=== PATIENT | female | born 1960 | race Caucasian/White ===

== ENCOUNTER → 2020-12-01 13:03 | Outpatient (BNVA) | payer MEDICARE, MEDICAID, SELFPAY | PROVIDERS: PCP Nurse Practitioner Family; Referring Provider Family Medicine; Visit Provider Surgery | DX: Z01.818 Encounter for other preprocedural examination (principal); E66.01 Morbid (severe) obesity due to excess calories; K21.9 Gastro-esophageal reflux disease without esophagitis; K91.2 Postsurgical malabsorption, not elsewhere classified; R06.02 Shortness of breath; J45.909 Unspecified asthma, uncomplicated; F33.9 Major depressive disorder, recurrent, unspecified; F43.10 Post-traumatic stress disorder, unspecified; Z87.891 Personal history of nicotine dependence; F41.8 Other specified anxiety disorders; Z68.43 Body mass index [BMI] 50.0-59.9, adult; Z90.3 Acquired absence of stomach [part of]; Z79.899 Other long term (current) drug therapy | CPT/HCPCS: 99202 ==

== ENCOUNTER → 2020-12-15 08:06 | Outpatient (BNVA) | payer MEDICARE, MEDICAID, SELFPAY | PROVIDERS: PCP Nurse Practitioner Family; Visit Provider Physician Assistant | DX: E66.01 Morbid (severe) obesity due to excess calories (principal); Z68.43 Body mass index [BMI] 50.0-59.9, adult | CPT/HCPCS: Q3014 ==

== ENCOUNTER → 2021-03-02 09:02 | Outpatient (BNVA) | payer MEDICARE, MEDICAID, SELFPAY | PROVIDERS: PCP Nurse Practitioner Family; Referring Provider Family Medicine; Visit Provider Physician Assistant | DX: E66.01 Morbid (severe) obesity due to excess calories (principal); Z68.43 Body mass index [BMI] 50.0-59.9, adult | CPT/HCPCS: 99212 ==

== ENCOUNTER → 2021-03-14 08:08 | Outpatient (BNVA) | payer MEDICARE, MEDICAID, SELFPAY | PROVIDERS: PCP Nurse Practitioner Family; Visit Provider Dietitian, Registered | DX: E66.01 Morbid (severe) obesity due to excess calories (principal) | CPT/HCPCS: 97802 ==

== ENCOUNTER 2021-03-28 07:43 | Outpatient (REF) | payer MEDICARE, MEDICAID, SELFPAY ==
--- NOTE | ~2021-03-28 | XR_ITS ---
EXAMINATION: XR CHEST CLINICAL INFORMATION: Shortness of breath COMPARISON: None TECHNIQUE: 2 views of the chest were obtained. FINDINGS: The cardiac and mediastinal contours are normal. The lungs are clear. There is no pleural effusion or pneumothorax. There are degenerative changes of the spine. XR/XR chest 2V IMPRESSION: No evidence for acute disease in the chest.
--- NOTE | ~2021-03-28 | US_ITS ---
EXAMINATION: US COMPLETE ABDOMEN WITH LIVER ELASTOGRAPHY CLINICAL INFORMATION: Obesity COMPARISON: None. TECHNIQUE: Real-time imaging of the abdominal viscera. Noninvasive ultrasound liver fibrosis assessment is performed using Daja ElastPQ point quantification shear wave elastography (pSWE) with a C5-2 MHz transducer. Multiple elastography samples are obtained. FINDINGS: PANCREAS: The body of the pancreas is normal. The tail and head of the pancreas are not well visualized due to bowel gas. ABDOMINAL AORTA: No upper and mid abdominal aorta are normal in caliber. Distal abdominal aorta is not well visualized due to bowel gas. INFERIOR VENA CAVA: Not well visualized due to bowel gas. LIVER: Liver echotexture is increased. Liver is normal in contour. The liver is enlarged.. No focal lesion or intrahepatic biliary duct dilatation. The right lobe measures 19 cm in length. The left lobe measures 9 cm in length. Portal flow is normal/hepatopedal Shear wave liver elastography median stiffness is 1.4 m/s (reference: normal median stiffness is 1.3 m/s or less). IQR/median stiffness to assess sampling precision is 0.1 (reference: good quality data set is IQR/median stiffness of 0.15 or less). GALLBLADDER: Normal. The gallbladder is physiologically distended without evidence of stones, sludge, polyps, wall thickening or pericholecystic fluid. COMMON BILE DUCT: Normal in caliber measuring 0.3 cm in diameter. RIGHT KIDNEY: Normal. No hydronephrosis. No renal calculi or focal parenchymal lesions. The kidney measures 11 cm in maximum dimension. LEFT KIDNEY: Normal. No hydronephrosis. No renal calculi or focal parenchymal lesions. The kidney measures 11 cm in maximum dimension. SPLEEN: Normal. The spleen measures 7 cm in maximum dimension. FREE FLUID: None. US/US abdomen comp w elastography IMPRESSION: 1. Impression: Enlarged echogenic liver probably representing fatty infiltration. Limited visualization of the pancreas, aorta and IVC. 2. Liver elastography: Adequate liver sampling. In the absence of other known clinical signs, rules out compensated advanced chronic liver disease. REFERENCE: Society of Radiologists in Ultrasound Liver Stiffness Thresholds (2020): LIVER STIFFNESS THRESHOLDS: *Liver Stiffness equal or less than 1.3 m/s: High probability of being normal. *Liver Stiffness less than 1.7 m/s: In the absence of other known clinical signs, rules out compensated advanced chronic liver disease. *Liver Stiffness 1.7-2.1 m/s: Suggestive of compensated advanced chronic liver disease but need further test for confirmation. *Liver Stiffness over 2.1 m/s: Rules in compensated advanced chronic liver disease. *Liver Stiffness over 2.4 m/s: Suggestive of clinically significant portal hypertension. QUALITY OF DATA SET: *IQR/Median value equal or less than 0.15 implies a quality data set. *IQR/Median value over 0.15 implies a poor quality data set. SIGNIFICANT CHANGE FROM PRIOR EXAM: Significant change if liver stiffness measurement is 10% or greater from prior exam. OTHER CONSIDERATIONS: The stage of liver fibrosis may be overestimated in the setting of acute hepatitis, liver inflammation, elevated liver function tests, hepatic vascular congestion, obstructive cholestasis, non-fasting state, and infiltrative diseases such as amyloidosis and lymphoma. In some patients with NAFLD, the liver stiffness thresholds for compensated advanced chronic liver disease may be lower. In causes other than viral hepatitis and NAFLD, liver stiffness thresholds are not well established.
--- NOTE | ~2021-03-28 | FL_ITS ---
EXAMINATION: XR GI SERIES CLINICAL INFORMATION: Morbid/severe obesity due to excess calories. COMPARISON: None TECHNIQUE: Routine upper GI exam was performed in upright and lying position. FINDINGS: Following oral administration of thick barium and effervescent granules there is normal propagation of bolus from the oral cavity through the pharynx, esophagus into stomach without any obstruction narrowing. There is a tight posterior cricoesophageal splinter indenting the posterior esophageal wall. On placing patient supine and prone, the course, caliber and peristalsis of the stomach and esophagus is normal. There is no hiatal hernia or gastroesophageal reflux seen. The mucosal pattern of the stomach and the duodenum is normal. FLUOROSCOPY TIME: 2.0 minutes. DOSE AREA PRODUCT: 63.452 uGy-m2 (microgray-meter squared). FL/FL upper GI series IMPRESSION: Unremarkable upper GI air-contrast study.
--- NOTE | 2021-03-28 08:26 | ECG_ITS ---
Test Reason : sob Blood Pressure : / mmHG Vent. Rate : 064 BPM Atrial Rate : 064 BPM P-R Int : 182 ms QRS Dur : 108 ms QT Int : 444 ms P-R-T Axes : 032 086 048 degrees QTc Int : 458 ms Normal sinus rhythm Nonspecific ST and T wave abnormality Abnormal ECG No previous ECGs available Referred By: Spring Loza Electronically Signed By:LUIS SILVA
[2021-03-28 08:37] LABS: MANUAL DIFF FLAG NO
[2021-03-28 08:52] LABS: Basophils Percent Auto 0.8 % (0-2); Eosinophils Absolute Auto 0.2 X10*3/uL (0.0-0.4); Eosinophils Percent Auto 3.3 % (0-4); Hematocrit 42.1 % (37-47); Hemoglobin 13.9 g/dl (12.0-16.0); Imm Gran Abs Auto 0.01 X10*3/uL (0.00-0.03); Imm Gran Pct Auto 0.2 % (0.0-0.4); Lymphocytes Percent Auto 38.5 % (20-40); Mean Platelet Volume 9.8 fL (9.4-12.3); Monocytes Absolute Auto 0.4 X10*3/uL (0.1-1.2); Monocytes Percent Auto 6.9 % (2-11); Neutrophils Absolute Auto 2.6 X10*3/uL (2.0-8.3); Neutrophils Percent Auto 50.3 % (45-73); Platelet Count 303 X10*3/uL (160-400); Red Blood Count 4.48 X10*6/uL (4.20-5.50); Red Cell Distribution Width 13.8 % (11.0-16.0); White Blood Count 5.2 X10*3/uL (4.8-10.8)
[2021-03-28 09:21] LABS: Alanine Aminotransferase 24 U/L (0-31); Albumin Level 4.3 g/dL (3.5-5.0); Alkaline Phosphatase 76 U/L (39-117); Anion Gap 13 (12-20); Aspartate Amino Transferase 17 U/L (5-31); Bilirubin Total 0.3 mg/dL (0.0-1.0); Blood Urea Nitrogen 20 mg/dL (9-16); Calcium 9.3 mg/dL (8.4-10.2); Carbon Dioxide 27 mmol/L (22-29); Chloride 106 mmol/L (96-108); Cholesterol 178 mg/dL; Estimated Glomerular Filt Rate 45; Glucose Fasting 95 mg/dL (60-99); HDL Cholesterol 52 mg/dL; Iron 78 mcg/dL (30-160); LDL Cholesterol Calculated 110 mg/dl; Percent Iron Saturation 24 % (15-50); Potassium 4.5 mmol/L (3.3-5.1); Sodium 141 mmol/L (135-145); Total Iron Binding Capacity 320 mcg/dL (228-428); Total Protein 7.3 g/dL (6.5-8.0); Triglycerides 84 mg/dL; Unsaturated Iron Binding 242 ug/dL
[2021-03-28 09:43] LABS: Thyroid Stimulating Hormone 1.82 uIU/mL (0.32-4.0); Vitamin D 25-OH Total 52.9 ng/mL (>30)
[2021-03-28 10:15] LABS: Vitamin B12 534 pg/mL (200-900)
[2021-03-28 10:18] LABS: Estimated Average Glucose 100 mg/dL; Hemoglobin A1c % 5.1 %
[2021-03-30 12:31] LABS: Calcium (PTHI) 9.5 mg/dL (8.6-10.4); PTHI 43 pg/mL (14-64)
[2021-03-31 08:15] LABS: Zinc 88 mcg/dL (60-130)
[2021-04-02 10:36] LABS: Vitamin A 67 mcg/dL (38-98)
[2021-04-04 12:01] LABS: Vitamin B1 8 nmol/L (8-30)
== END 2021-03-28 07:44 | disposition home or self-care (01) ==
LOC: HO.US 07:43
PROVIDERS: Absent Provider Surgery; PCP Nurse Practitioner Family; Visit Provider Physician Assistant
DX: Z01.818 Encounter for other preprocedural examination (principal); E66.01 Morbid (severe) obesity due to excess calories; R06.02 Shortness of breath; K21.9 Gastro-esophageal reflux disease without esophagitis; K91.2 Postsurgical malabsorption, not elsewhere classified; Z90.3 Acquired absence of stomach [part of]
CPT/HCPCS: 36415; 71046; 74240; 76705; 76981; 80053; 80061; 82306; 82607; 83036; 83540; 83970; 84425; 84443; 84590; 84630; 85025; 86140; 93005

== ENCOUNTER → 2021-04-06 10:43 | Outpatient (BNVA) | payer MEDICARE, MEDICAID, SELFPAY | PROVIDERS: PCP Nurse Practitioner Family; Visit Provider Physician Assistant | DX: E66.01 Morbid (severe) obesity due to excess calories (principal); F50.81 Binge eating disorder; Z68.42 Body mass index [BMI] 45.0-49.9, adult | CPT/HCPCS: Q3014 ==

== ENCOUNTER → 2021-04-11 08:08 | Outpatient (BNVA) | payer MEDICARE, MEDICAID, SELFPAY | PROVIDERS: PCP Nurse Practitioner Family; Referring Provider Physician Assistant; Visit Provider Dietitian, Registered | DX: E66.01 Morbid (severe) obesity due to excess calories (principal) | CPT/HCPCS: 97803 ==

== ENCOUNTER → 2021-05-14 08:04 | Outpatient (BNVA) | payer MEDICARE, MEDICAID, SELFPAY | PROVIDERS: PCP Nurse Practitioner Family; Referring Provider Physician Assistant; Visit Provider Dietitian, Registered | DX: E66.9 Obesity, unspecified (principal); Z68.43 Body mass index [BMI] 50.0-59.9, adult | CPT/HCPCS: 97803 ==

== ENCOUNTER → 2021-05-18 08:09 | Outpatient (BNVA) | payer MEDICARE, MEDICAID, SELFPAY | PROVIDERS: PCP Nurse Practitioner Family; Visit Provider Physician Assistant | DX: Z13.89 Encounter for screening for other disorder (principal) | CPT/HCPCS: Q3014 ==

== ENCOUNTER 2023-09-11 10:55 | Outpatient (AMB) | payer MEDICARE, SELFPAY ==
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
== END 2023-09-11 11:50 | disposition home or self-care (01) ==
LOC: HO.HOP 10:55
PROVIDERS: PCP Family Medicine; Visit Provider Clinical Nurse Specialist Psychiatric/Mental Health
DX: F43.12 Post-traumatic stress disorder, chronic (principal); F50.81 Binge eating disorder
CPT/HCPCS: 99214

== ENCOUNTER → 2023-09-11 10:55 | Outpatient (BNVA) | payer MEDICARE, SELFPAY | PROVIDERS: PCP Family Medicine; Visit Provider Clinical Nurse Specialist Psychiatric/Mental Health | DX: F50.81 Binge eating disorder (principal); F43.10 Post-traumatic stress disorder, unspecified; F43.9 Reaction to severe stress, unspecified; F40.00 Agoraphobia, unspecified; Z79.899 Other long term (current) drug therapy | CPT/HCPCS: 99212 ==

== ENCOUNTER 2023-12-11 12:55 | Outpatient (AMB) | payer MEDICARE, SELFPAY ==
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
== END 2023-12-11 12:56 | disposition home or self-care (01) ==
LOC: HO.HOP 12:55
PROVIDERS: PCP Family Medicine; Visit Provider Clinical Nurse Specialist Psychiatric/Mental Health
DX: F33.0 Major depressive disorder, recurrent, mild (principal); F41.9 Anxiety disorder, unspecified; F43.20 Adjustment disorder, unspecified; F50.81 Binge eating disorder
CPT/HCPCS: 99214

== ENCOUNTER → 2023-12-11 12:55 | Outpatient (BNVA) | payer MEDICARE, SELFPAY | PROVIDERS: PCP Family Medicine; Visit Provider Clinical Nurse Specialist Psychiatric/Mental Health | DX: F33.0 Major depressive disorder, recurrent, mild (principal); F41.9 Anxiety disorder, unspecified; F43.20 Adjustment disorder, unspecified; F50.81 Binge eating disorder | CPT/HCPCS: 99212 ==

== ENCOUNTER 2024-01-08 11:57 | Outpatient (AMB) | payer MEDICARE, SELFPAY ==
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
== END 2024-01-08 11:58 | disposition home or self-care (01) ==
LOC: HO.HOP 11:57
PROVIDERS: PCP Family Medicine; Visit Provider Clinical Nurse Specialist Psychiatric/Mental Health
DX: F33.0 Major depressive disorder, recurrent, mild (principal); F43.20 Adjustment disorder, unspecified; F41.9 Anxiety disorder, unspecified
CPT/HCPCS: 99214

== ENCOUNTER → 2024-01-08 11:57 | Outpatient (BNVA) | payer MEDICARE, SELFPAY | PROVIDERS: PCP Family Medicine; Visit Provider Clinical Nurse Specialist Psychiatric/Mental Health | DX: F33.0 Major depressive disorder, recurrent, mild (principal); F41.9 Anxiety disorder, unspecified; F43.20 Adjustment disorder, unspecified; F50.81 Binge eating disorder ==

== ENCOUNTER 2024-02-09 14:25 | Outpatient (AMB) | payer MEDICARE, SELFPAY ==
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
== END 2024-02-09 14:27 | disposition home or self-care (01) ==
LOC: HO.HOP 14:26
PROVIDERS: PCP Family Medicine; Visit Provider Clinical Nurse Specialist Psychiatric/Mental Health
DX: F43.20 Adjustment disorder, unspecified (principal); Z63.4 Disappearance and death of family member; F33.1 Major depressive disorder, recurrent, moderate
CPT/HCPCS: 99214

== ENCOUNTER → 2024-02-09 14:25 | Outpatient (BNVA) | payer MEDICARE, SELFPAY | PROVIDERS: PCP Family Medicine; Visit Provider Clinical Nurse Specialist Psychiatric/Mental Health | DX: F41.9 Anxiety disorder, unspecified (principal); F33.1 Major depressive disorder, recurrent, moderate; F43.20 Adjustment disorder, unspecified; Z63.4 Disappearance and death of family member | CPT/HCPCS: 99212 ==

== ENCOUNTER 2024-03-15 13:51 | Outpatient (AMB) | payer MEDICARE, SELFPAY ==
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
== END 2024-03-15 13:52 | disposition home or self-care (01) ==
LOC: HO.HOP 13:51
PROVIDERS: PCP Family Medicine; Visit Provider Clinical Nurse Specialist Psychiatric/Mental Health
DX: F33.1 Major depressive disorder, recurrent, moderate (principal); F43.11 Post-traumatic stress disorder, acute; F43.20 Adjustment disorder, unspecified; Z63.4 Disappearance and death of family member
CPT/HCPCS: 99214

== ENCOUNTER → 2024-03-15 13:51 | Outpatient (BNVA) | payer MEDICARE, SELFPAY | PROVIDERS: PCP Family Medicine; Visit Provider Clinical Nurse Specialist Psychiatric/Mental Health | DX: F33.0 Major depressive disorder, recurrent, mild (principal); F41.9 Anxiety disorder, unspecified; F43.20 Adjustment disorder, unspecified; F50.81 Binge eating disorder; Z63.4 Disappearance and death of family member; F33.1 Major depressive disorder, recurrent, moderate; F43.10 Post-traumatic stress disorder, unspecified ==

== ENCOUNTER 2024-04-16 12:51 | Outpatient (AMB) | payer MEDICARE, SELFPAY ==
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
== END 2024-04-16 12:51 | disposition home or self-care (01) ==
LOC: HO.HOP 12:51
PROVIDERS: PCP Family Medicine; Visit Provider Clinical Nurse Specialist Psychiatric/Mental Health
DX: F43.10 Post-traumatic stress disorder, unspecified (principal); F33.1 Major depressive disorder, recurrent, moderate; F43.20 Adjustment disorder, unspecified; Z63.4 Disappearance and death of family member
CPT/HCPCS: 99214

== ENCOUNTER → 2024-04-16 12:51 | Outpatient (BNVA) | payer MEDICARE, SELFPAY | PROVIDERS: PCP Family Medicine; Visit Provider Clinical Nurse Specialist Psychiatric/Mental Health | DX: F33.1 Major depressive disorder, recurrent, moderate (principal); F43.21 Adjustment disorder with depressed mood; F43.10 Post-traumatic stress disorder, unspecified; Z63.4 Disappearance and death of family member | CPT/HCPCS: 99212 ==

== ENCOUNTER 2024-05-14 10:03 | Outpatient (AMB) | payer MEDICARE, SELFPAY ==
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
== END 2024-05-14 10:41 | disposition home or self-care (01) ==
LOC: HO.HOP 10:03
PROVIDERS: PCP Family Medicine; Visit Provider Clinical Nurse Specialist Psychiatric/Mental Health
DX: F43.10 Post-traumatic stress disorder, unspecified (principal); F33.1 Major depressive disorder, recurrent, moderate; F43.20 Adjustment disorder, unspecified; Z63.4 Disappearance and death of family member
CPT/HCPCS: 90833; 99214

== ENCOUNTER → 2024-05-14 10:03 | Outpatient (BNVA) | payer MEDICARE, SELFPAY | PROVIDERS: PCP Family Medicine; Visit Provider Clinical Nurse Specialist Psychiatric/Mental Health | DX: F43.10 Post-traumatic stress disorder, unspecified (principal); F33.1 Major depressive disorder, recurrent, moderate; F43.20 Adjustment disorder, unspecified; Z63.4 Disappearance and death of family member; Z62.810 Personal history of physical and sexual abuse in childhood; Z71.89 Other specified counseling | CPT/HCPCS: 99212 ==

== ENCOUNTER 2024-09-03 11:16 | Outpatient (AMB) | payer MEDICARE, SELFPAY ==
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
--- OUTSIDE RECORDS SUMMARY | 2024-09-03 13:05 | XMS_ITS | Encounter Summary ---
Author Organization [employer] Address [address] [place] [address] Care Team Providers Care Saw Operator Name Role Phone Megha Arroyo Unavailable Jairo Patel DDS Unavailable [phone] Encounter Details Date Type Department Care Team (Late Contact Info) Description 04/16/2023 Orders Only [facility] [address] [place] [address] [phone] Ryan [place] DDS [address] [place] [address] [id number] Social History Tobacco Use Types Packs/Day Years Used Date Smoking Tobacco: Never Smokeless Tobacco: Never Alcohol Use Standard Drinks/Week Comments Not Currently 0 (1 standard drink = 0.6 oz pur e alcohol) Comments Unknown Sex and Gender Information Value Date Recorded Sex Assigned at Female 12/25/2022 9:08 AM EDT Legal Sex Female 8:39 PM EST Gender Identity Female 05/10/2022 8:39 PM EST Sexual Orientation Straight 05/10/2022 8: 39 PM EST documented as of this encounter Plan of Treatment Upcoming Encounters Date Type Department Care Team (Late st Contact Info) Description 10/28/2024 9:45 AM EDT Office Visit [facility] [address] [place] [address] [phone] Darlene Zabala documented as of this encounter Visit Diagnoses Not on filedocumented in this encounter Care Teams Saw Operator Relationship Specialty Start Date End Date Megha Arroyo [address] [place] [address] Dental Merchandise Collector 10/21/23 Jairo Patel DDS [address] [place] [address] Dentist 10/21/23 documented as of this encounter
--- OUTSIDE RECORDS SUMMARY | 2024-09-03 13:05 | XMS_ITS | Data Portability ---
Author Organization Formerly [facility], [employer] Address [address] [place] [id number] Assessment Encounter Date Assessment Date Assessment LastModified by Organization Details LastModified Time 08/14/2023 08/14/2023 During this encounter, 2 of the 3 elements of MDM addressed: (1)Number and Complexity of problems: 2 or more stable chronic illnesses (2)Amount/Complex ity of data (need 1 out of 3 categories): Category 2: Independent interpretation of tests. (3)Moderate Risk of morbidity from additional diagnostic testing or treatment (one needed): . [email or web address] Not available 08/14/2023 21:22:00 10/17/2023 10/17/2023 The patient was advised to continue a healthy diet and exercise regularly. Preventative care discussed in detail. Eight minutes spent on each counselling about depression, alcohol, obesity, and cardiovascular health. Further preventative care counselling discussed as documented below. [email or web address] Not available 10/29/2023 13:18:02 02/24/2024 02/24/2024 Appointments - Follow-up appointment in 6 to 8 weeks, labs prior The following time was spent on todays E/M encounter, including preparing for the visit, reviewing results, seeing the patient, and documentation on the date of service of the encounter: 40 mins Not available 02/26/2024 09:12:22 05/10/2024 05/10/2024 The following time was spent on todays E/M encounter, including preparing for the visit, reviewing results, seeing the patient, and documentation on the date of service of the encounter: 30 [id number] 15-29 minutes [id number] 30-44 minutes [id number] 45-59 minutes [id number] 60-74 minutes [id number] 10-19 minutes [id number] 20-29 minutes [id number] 30-39 minutes [id number] 40-54 minutes [email or web address] Not available 05/10/2024 16:16:12 07/09/2024 07/09/2024 Assessment - Chronic back pain likely due to muscle strain, although considered ddx of degenerative disc disease, disc bulge/herniation, spinal stenosis. - Binge eating disorder - History of cardiac artery dissection, with ongoing monitoring of cholesterol levels. Plan - Initiate physical therapy to address back pain. If there is no noticeable improvement after six weeks, imaging studies will be considered to evaluate for potential degenerative changes or other underlying issues. A referral for physical therapy will be sent to facilitate the initiation of treatment for back pain. - Emphasize weight management strategies to reduce stress on the joints and spine, acknowledging the challenges posed by binge eating disorder. - Continue to monitor cholesterol levels closely, with a focus on dietary modifications to further improve lipid profile. The patient is encouraged to maintain current efforts and dietary changes. - A referral will be made to a colorectal specialist to assess and manage hemorrhoids Appointments - Physical therapy referral to be scheduled. - Colorectal referral to be scheduled. - Annual exam in October 2024 The following time was spent on todays E/M encounter, including preparing for the visit, reviewing results, seeing the patient, and documentation on the date of service of the encounter: 45 mins [email or web address] Not available 07/12/2024 06:04:41 Plan of Treatment Reminders Order Date Submit Date Provider Last Modified By Organization Details Last Modified Time Details Appointments None recorded . Lab lipid panel, serum 2024 025 [facility], [address] [facility], [place], [address], 5 06:06:14 TSH, ultra-se nsitive, serum 2024 025 ALEISHA [facility], [address], [place], [address], 5 06:06:14 CBC 2024 025 ALEISHA [facility], [address], [place], [address], 5 06:06:14 HbA1c (hemoglo bin A1c), blood 2024 025 ALEISHA [facility], [address], [place], [address], 5 06:06:13 vaginal pathogen s panel, PRITI+prob e, vaginal fluid 2023 024 ALEISHA [facility], [address], [place], [address], 4 14:06:53 urinalys is, dipstick 2023 024 [email or web address] Main Office, [address] [place] [address], [address], [place], [address], 4 16:18:50 CMP, serum or plasma 2023 024 ALEISHA [facility], [address], [place], [address], 4 06:08:10 lipid panel, serum 2023 024 ALEISHA [facility], [address], [place], [address], 4 06:08:11 lipid panel, serum 2023 024 ALEISHA [facility] (Centralized Electronic Ordering - All Locations), Patient Can Go To The Location Of Their Choice, [id number] 4 03:03:50 Referral colon & rectal surgeon referral 2024 025 [email or web address] [facility] Colorectal Surgery Scheduling Dept, [facility] [address] [facility], [place], [address], 5 10:25:32 [email or web address] gist referral 2023 024 [email or web address] Not available 4 09:02:25 Procedures None recorded . Surgeries None recorded . Imaging None recorded . Medication Orders Senna Plus 8.6 mg-50 mg capsule 2023 024 [facility], [address] [place], [address], 4 09:01:34 omeprazo le 40 mg capsule, delayed release 2023 024 [facility], [address] [place], [address], 4 13:17:59 cycloben zaprine 10 mg tablet 2023 024 [facility], [address] [place], [address], 4 21:26:53 gabapent in 300 mg capsule 2023 024 [facility], [address] [place], [address], 4 10:59:57 Patient TargetsNo targets recorded. Patient Instructions Encounter Date Encounter Id Patient Instructions Last Modified By Organization Details Last Modified Time 02/24/2024 [id number] back pain: care instructions Not available 02/24/2024 10:49:58 low back pain: exercises [email or web address] Not available 02/24/2024 10:49:58 back care and preventing injuries: care instructions [email or web address] Not available 02/24/2024 10:49:58 Reason for Referral Rehabilitation Aide/Scheduler Referral for Dy suria Referring Physician: Amelia Gramajo, Internal Medicine, Encounter Date: 05/10/2024 Colon & Rectal Surgeon Refer ral for External hemorrhoids Referring Physician: Sonali Duenas, Family Medicine, Encounter Date: 07/09/2024 Results Created Date Observation Date Name Description Value Unit Range Abnormal Flag Note LastModifiedBy Organization Detail LastModifiedTime 08/12/1908/12/2023 COMPL ETE BLOOD COUNT WBC 5.8 K/mm3 (4.0-1 1.0) Not Available [facility] (Centralized [facility] Ordering - All Locations) Patient Can Go To The Location Of Their Choice, [id number] 08/12/2023 14:21:44 08/12/1908/12/2023 COMPL ETE BLOOD COUNT RBC 4.37 M/mm3 (4.20- 5.40) Not Available [facility] (Centralized [facility] Ordering - All Locations) Patient Can Go To The Location Of Their Choice, 08/12/2023 14:21:44 08/12/19 24 08/12/2023 COMPL ETE BLOOD COUNT HGB 13.5 gm/dL (11.7- 15.5) Not Available [facility] (Centralized Electronic Ordering - All Locations) Patient Can Go To The Location Of Their Choice, 08/12/2023 14:21:44 08/12/19 24 08/12/2023 COMPL ETE BLOOD COUNT HCT 41.5 % (35.7- 45.8) Not Available [facility] (Central[facility] Ordering - All Locations) Patient Can Go To The Location Of Their Choice, 08/12/2023 14:21:44 08/12/1908/12/2023 COMPL ETE BLOOD COUNT MCV 95.0 fL (80.0- 100.0) Not Available [facility] (Centralized Electronic Ordering - All Locations) Patient Can Go To The Location Of Their Choice, 08/12/2023 14:21:44 08/12/19 24 08/12/2023 COMPL ETE BLOOD COUNT MCH 30.9 pg (27.0- 34.0) Not Available [facility] ([facility] Ordering - All Locations) Patient Can Go To The Location Of Their Choice, 08/12/2023 14:21:44 08/12/1908/12/2023 COMPL ETE BLOOD COUNT MCHC 32.5 g/dL (33.0- 37.0) low Not Available [facility] ([facility] Ordering - All Locations) Patient Can Go To The Location Of Their Choice, 08/12/2023 14:21:44 08/12/1908/12/2023 COMPL ETE BLOOD COUNT plt 327 K/mm3 (150-4 60) Not Available [facility] ([facility] Ordering - All Locations) Patient Can Go To The Location Of Their Choice, 08/12/2023 14:21:44 08/12/19 24 08/12/2023 COMPL ETE BLOOD COUNT RDW-SD 46.9 fL (<47.0 ) Not Available [facility] ([facility] Ordering - All Locations) Patient Can Go To The Location Of Their Choice, 08/12/2023 14:21:44 08/12/19 24 08/12/2023 COMPL ETE BLOOD COUNT MPV 10.0 fL (9.4-1 2.4) Not Available [facility] ([facility] Ordering - All Locations) Patient Can Go To The Location Of Their Choice, 08/12/2023 14:21:44 08/12/19 24 08/12/2023 COMPL ETE BLOOD COUNT automated NRBC 0.0 #/100 _WBC' s Not Available [facility] (Central[facility] Ordering - All Locations) Patient Can Go To The Location Of Their Choice, 08/12/2023 14:21:44 08/12/19 24 08/12/2023 COMPL ETE BLOOD COUNT abs. NRBC 0.0 K/mm3 Not Available [facility] ([facility] Ordering - All Locations) Patient Can Go To The Location Of Their Choice, 08/12/2023 14:21:44 08/12/1908/12/2023 HEMOG LOBIN A1C hemoglobin A1C 5.4 % (4.0-5 .6) MONIT ORING : In known diabe tic patie nts, hemog lobin A1c targe ts shoul d be discu ssed with healt h care provi gissel. DIAGN OSTIC USE: The Ameri can Diabe pham Assoc iatio n (ADA) and the World Healt h Organ izati on (WHO) recom mend the use of HbA1c to diagn ose diabe pham using a thres hold of 6.5%. Patie nts who have an HbA1c betwe en 5.7% and 6.4% are consi dered at incre ased risk for devel oping diabe pham in the futur e. CAUTI ON: False ly low HbA1c resul ts may be obser shahrzad in patie nts with hemol ytic anemi a, homoz ygous forms of abnor mal hemog lobin (e.g. SS, CC, SC), pregn leonor, recen t blood loss or hemog lobin F great er than 7%. Fruct osami ne may be used as an alter fernie test in these cases . REFER ENCE: ADA: Stand ards of Medic al Care in Diabe pham 2019, The Journ al of Clini seth and Appli ed Resea rc and Educa tion Volum e 43, Suppl ement 1 Not Available [facility] ([facility] Ordering - All Locations) Patient Can Go To The Location Of Their Choice, 08/12/2023 14:47:50 08/12/19 24 08/12/2023 COMPR EHENS EDDIE METAB OLIC PANL glucose 92 mg/dL (70-99 ) Not Available [facility] ([facility] Order[facility] - All Locations) Patient Can Go To The Location Of Their Choice, 08/12/2023 15:01:25 08/12/19 24 08/12/2023 COMPR EHENS EDDIE METAB OLIC PANL BUN 14 mg/dL (8-23) Not Available [facility] ([facility] Order[facility] - All Locations) Patient Can Go To The Location Of Their Choice, 08/12/2023 15:01:25 08/12/1908/12/2023 COMPR EHENS EDDIE METAB OLIC PANL creatinine 1.3 mg/dL (0.5-1 .0) high Not Available [facility] ([facility] Order[facility] - All Locations) Patient Can Go To The Location Of Their Choice, 08/12/2023 15:01:25 08/12/1908/12/2023 COMPR EHENS EDDIE METAB OLIC PANL sodium 140 mmol/ L (133-1 45) Not Available [facility] ([facility] Order[facility] - All Locations) Patient Can Go To The Location Of Their Choice, 08/12/2023 15:01:25 08/12/1908/12/2023 COMPR EHENS EDDIE METAB OLIC PANL potassium 4.7 mmol/ L (3.6-5 .2) Not Available [facility] ([facility] Order[facility] - All Locations) Patient Can Go To The Location Of Their Choice, 08/12/2023 15:01:25 08/12/19 24 08/12/2023 COMPR EHENS EDDIE METAB OLIC PANL chloride 102 mmol/ L (98-10 7) Not Available [facility] ([facility] Order[facility] - All Locations) Patient Can Go To The Location Of Their Choice, 08/12/2023 15:01:25 08/12/19 24 08/12/2023 COMPR EHENS EDDIE METAB OLIC PANL bicarbonate 26 mmol/ L (22-29 ) Not Available [facility] ([facility] Order[facility] - All Locations) Patient Can Go To The Location Of Their Choice, 08/12/2023 15:01:25 08/12/19 24 08/12/2023 COMPR EHENS EDDIE METAB OLIC PANL anion gap 12 (4-17) Not Available [facility] ([facility] Ordering - All Locations) Patient Can Go To The Location Of Their Choice, 08/12/2023 15:01:25 08/12/19 24 08/12/2023 COMPR EHENS EDDIE METAB OLIC PANL albumin 4.2 gm/dL (3.4-4 .8) Not Available [facility] ([facility] Ordering - All Locations) Patient Can Go To The Location Of Their Choice, 08/12/2023 15:01:08/12/1908/12/2023 COMPR EHENS EDDIE METAB OLIC PANL calcium 9.3 mg/dL (8.6-1 0.5) Not Available [facility] ([facility] Ordering - All Locations) Patient Can Go To The Location Of Their Choice, 08/12/2023 15:01:08/12/1908/12/2023 COMPR EHENS EDDIE METAB OLIC PANL bilirubin,to dawson 0.4 mg/dL (0-1.2 ) Not Available [facility] ([facility] Ordering - All Locations) Patient Can Go To The Location Of Their Choice, 08/12/2023 15:01:08/12/1908/12/2023 COMPR EHENS EDDIE METAB OLIC PANL total protein 6.9 gm/dL (6.2-8 .2) Not Available [facility] ([facility] Ordering - All Locations) Patient Can Go To The Location Of Their Choice, 08/12/2023 15:01:08/12/19 24 08/12/2023 COMPR EHENS EDDIE METAB OLIC PANL Ag ratio 1.6 Not Available [facility] ([facility] Order[facility] - All Locations) Patient Can Go To The Location Of Their Choice, 08/12/2023 15:01:08/12/1908/12/2023 COMPR EHENS EDDIE METAB OLIC PANL AST 18 U/L (0-32) Not Available [facility] ([facility] Ordering - All Locations) Patient Can Go To The Location Of Their Choice, 08/12/2023 15:01:25 08/12/19 24 08/12/2023 COMPR EHENS EDDIE METAB OLIC PANL alk phos 76 U/L (35-10 4) Not Available [facility] ([facility] Ordering - All Locations) Patient Can Go To The Location Of Their Choice, 08/12/2023 15:01:25 08/12/19 24 08/12/2023 COMPR EHENS EDDIE METAB OLIC PANL ALT 16 U/L (0-33) Not Available [facility] ([facility] Ordering - All Locations) Patient Can Go To The Location Of Their Choice, 08/12/2023 15:01:25 08/12/19 24 08/12/2023 COMPR EHENS EDDIE METAB OLIC PANL estimated GFR creatinine 48 mL/mi n/1.7 3_M2 Creat inine based estim ated glome rular filtr ation (eGFR ) in adult s is calcu lated using the Natio nal Kidne y Found ation recom juan d 2020 CKD-E PI equat ion. Estim ates GFR from serum creat inine , age and sex. Not Available [facility] ([facility] Ordering - All Locations) Patient Can Go To The Location Of Their Choice, 08/12/2023 15:01:25 08/12/1908/12/2023 LIPID PANEL cholesterol, total 217 mg/dL (<200) high Not Available [facility] ([facility] - [facility] Locations) Patient Can Go To The Location Of Their Choice, 08/12/2023 15:01:26 08/12/19 24 08/12/2023 LIPID PANEL triglyceride 156 mg/dL (<150) high Not Available [facility] - [facility] Locations) Patient Can Go To The Location Of Their Choice, 08/12/2023 15:01:26 08/12/19 24 08/12/2023 LIPID PANEL HDL chol 53 mg/dL (>39) Not Available [facility] ([facility] Order[facility] - All Locations) Patient Can Go To The Location Of Their Choice, [id number] 08/12/2023 15:01:26 08/12/19 24 08/12/2023 LIPID PANEL LDL cholesterol, calculated 133 mg/dL (0-130 ) high Not Available [facility] ([facility] Order[facility] - All Locations) Patient Can Go To The Location Of Their Choice, [id number] 08/12/2023 15:01:26 08/12/19 24 08/12/2023 LIPID PANEL non HDL cholesterol (calc) 164 mg/dL (<160) high Not Available [facility] ([facility] - All Locations) Patient Can Go To The Location Of Their Choice, [id number] 08/12/2023 15:01:26 05/10/20 24 05/11/2024 NUSWA B VAGIN ITIS PLUS (VG+) atopobium vaginae Low - 0 score Not Available [facility] ([facility]) [address] [facility], [place], [address], 05/12/2024 14:06:53 05/10/20 24 05/11/2024 NUSWA B VAGIN ITIS PLUS (VG+) bvab 2 Low - 0 score Not Available [facility] ([facility]) [address] [facility], [place], [address], 05/12/2024 14:06:53 05/10/20 24 05/11/2024 NUA B VAGIN ITIS PLUS (VG+) megasphaera 1 Low - 0 score Calcu late total score by lois chavez the 3 indiv idual bacte rial vagin osis (BV) marke r score s toget her. Total score is inter prete d as follo ws: Total score 0-1: Indic ates the absen ce of BV. Total score 2: Indet ermin ate for BV. Addit ional clini seth data shoul d be evalu ated to estab evi a diagn osis. Total score 3-6: Indic ates the prese nce of BV. Not Available [facility] ([facility]) [address] [facility], [place], [address], 05/12/2024 14:06:53 05/10/20 24 05/11/2024 NUSWA B VAGIN ITIS PLUS (VG+) shannan albicans, PRITI Negati ve negati ve Not Available [facility] ([facility]) [address] [facility], [place], [address], 05/12/2024 14:06:53 05/10/20 24 05/11/2024 NUSWA B VAGIN ITIS PLUS (VG+) shannan glabrata, PRITI Negati ve negati ve Not Available [facility] ([facility]) [address] [facility], [place], [address], 05/12/2024 14:06:53 05/10/2005/12/2024 NUA B VAGIN ITIS PLUS (VG+) trich vag by PRITI Negati ve negati ve Not Available [facility] ([facility]) [address] [facility], [place], [address], 05/12/2024 14:06:53 05/10/20 24 05/12/2024 NUA B VAGIN ITIS PLUS (VG+) chlamydia trachomatis, PRITI Negati ve negati ve Not Available [facility] ([facility]) [address] [facility], [place], [address], 05/12/2024 14:06:53 05/10/20 24 05/12/2024 NUA B VAGIN ITIS PLUS (VG+) neisseria gonorrhoeae, PRITI Negati ve negati ve Not Available [facility] ([facility]) [address] [facility], [place], [address], 05/12/2024 14:06:53 05/10/20 24 05/10/2024 urina lysis , dipst ick Leukocytes negati ve Not Available Main Office [address] [place] [address], [address], 05/10/2024 15:56:33 05/10/20 24 05/10/2024 urina lysis , dipst ick Nitrite negati ve Not Available Main Office [address] [facility] [address], [place], [address], 05/10/2024 15:56:33 05/10/20 24 05/10/2024 urina lysis , dipst ick Urobilinogen negati ve Not Available Main Office [address] [facility] [address], [place], [address], 05/10/2024 15:56:33 05/10/20 24 05/10/2024 urina lysis , dipst ick Protein negati ve Not Available Main Office [address] [facility] [address], [place], , 05/10/2024 15:56:33 05/10/20 24 05/10/2024 urina lysis , dipst ick pH 5.5 Not Available Main Offic e [address] [facility] [address], [place], [address], 05/10/2024 15:56:33 05/10/20 24 05/10/2024 urina lysis , dipst ick Blood 3+ Not Available Main Offic e [address] [facility] [address], [place], [address], 05/10/2024 15:56:33 05/10/20 24 05/10/2024 urina lysis , dipst ick Specific [place] 1.020 Not Available Main O ffice [address] [facility] [address], [place], [address], 05/10/2024 15:56:33 05/10/20 24 05/10/2024 urina lysis , dipst ick Ketone negati ve Not Available Main Office [address] [facility] [address], [place], [address], 05/10/2024 15:56:33 05/10/20 24 05/10/2024 urina lysis , dipst ick Bilirubin negati ve Not Available Main Office [address] [facility] [address], [place], [address], 05/10/2024 15:56:33 05/10/20 24 05/10/2024 urina lysis , dipst ick Glucose negati ve Not Available Main Office [address] [facility] [address], [place], [address], 05/10/2024 15:56:33 06/16/20 24 06/16/2024 COMP. METAB OLIC PANEL (14) glucose 92 mg/dL 70-99 normal Not Available [facility] ([facility]) [address] [place], [address], 06/17/2024 06:08:10 06/16/20 24 06/16/2024 COMP. METAB OLIC PANEL (14) BUN 22 mg/dL 8-27 normal Not Available [facility] ([facility]) [address] [place], [address], 06/17/2024 06:08:10 06/16/20 24 06/16/2024 COMP. METAB OLIC PANEL (14) creatinine 1.24 mg/dL 0.57-1 .00 above high normal Not Available [facility] ([facility]) [address] [place], [address], 06/17/2024 06:08:10 06/16/20 24 06/16/2024 COMP. METAB OLIC PANEL (14) eGFR 49 mL/mi n/1.7 3 >59 below low normal Not Available [facility] ([facility]) [address] [place], [address], 06/17/2024 06:08:10 06/16/20 24 06/16/2024 COMP. METAB OLIC PANEL (14) BUN/creatini ne ratio 18 12-28 normal Not Available [facility] ([facility]) [address] [place], [address], 06/17/2024 06:08:10 06/16/20 24 06/16/2024 COMP. METAB OLIC PANEL (14) sodium 142 mmol/ L 134-14 4 normal Not Available [facility] ([facility]) [address] [place], [address], 06/17/2024 06:08:10 06/16/20 24 06/16/2024 COMP. METAB OLIC PANEL (14) potassium 4.6 mmol/ L 3.5-5. 2 normal Not Available [facility] ([facility]) [address] [place], [address], 06/17/2024 06:08:10 06/16/20 24 06/16/2024 COMP. METAB OLIC PANEL (14) chloride 104 mmol/ L 96-106 normal Not Available [facility] ([facility]) [address] [place], [address], 06/17/2024 06:08:10 06/16/20 24 06/16/2024 COMP. METAB OLIC PANEL (14) carbon dioxide, total 25 mmol/ L 20-29 normal Not Available [facility] ([facility]) [address] [place], [address], 06/17/2024 06:08:10 06/16/20 24 06/16/2024 COMP. METAB OLIC PANEL (14) calcium 9.2 mg/dL 8.7-10 .3 normal Not Available [facility] ([facility]) [address] [place], [address], 06/17/2024 06:08:10 06/16/20 24 06/16/2024 COMP. METAB OLIC PANEL (14) protein, total 6.8 g/dL 6.0-8. 5 normal Not Available [facility] ([facility]) [address] [place], [address], 06/17/2024 06:08:10 06/16/20 24 06/16/2024 COMP. METAB OLIC PANEL (14) albumin 4.0 g/dL 3.9-4. 9 normal Not Available [facility] ([facility]) [address] [facility] [place], [address], 06/17/2024 06:08:10 06/16/20 24 06/16/2024 COMP. METAB OLIC PANEL (14) globulin, total 2.8 g/dL 1.5-4. 5 Not Available [facility] ([facility]) [address] [facility] [place], [address], 06/17/2024 06:08:10 06/16/20 24 06/16/2024 COMP. METAB OLIC PANEL (14) bilirubin, total 0.3 mg/dL 0.0-1. 2 normal Not Available [facility] ([facility]) [address] [facility] [place], [address], 06/17/2024 06:08:10 06/16/20 24 06/16/2024 COMP. METAB OLIC PANEL (14) alkaline phosphatase 76 IU/L 44-121 normal Not Available [facility] ([facility]) [address] [facility] [place], [address], 06/17/2024 06:08:10 06/16/20 24 06/16/2024 COMP. METAB OLIC PANEL (14) AST (SGOT) 16 IU/L 0-40 normal Not Available [facility] ([facility]) [address] [facility] [place] [place], [address], 06/17/2024 06:08:10 06/16/20 24 06/16/2024 COMP. METAB OLIC PANEL (14) ALT (SGPT) 17 IU/L 0-32 normal Not Available [facility] ([facility]) [address] [facility] [place], [address], 06/17/2024 06:08:10 06/16/20 24 06/17/2024 LIPID PANEL cholesterol, total 203 mg/dL 100-19 9 above high normal Not Available [facility] ([facility]) [address] [facility] [place], [address], 06/17/2024 06:08:11 06/16/20 24 06/17/2024 LIPID PANEL triglyceride s 132 mg/dL 0-149 normal Not Available [facility] ([facility]) [address] [facility], [place], [address], 06/17/2024 06:08:11 06/16/20 24 06/17/2024 LIPID PANEL HDL cholesterol 51 mg/dL >39 normal Not Available [facility] ([facility]) [address] [facility], [place], [address], 06/17/2024 06:08:11 06/16/20 24 06/17/2024 LIPID PANEL VLDL cholesterol seth 24 mg/dL 5-40 Not Available [facility] ([facility]) [address] [facility], [place], [address], 06/17/2024 06:08:11 06/16/20 24 06/17/2024 LIPID PANEL LDL chol calc ([facility]) 128 mg/dL 0-99 above high normal Not Available [facility] ([facility]) [address] [place], [address], 06/17/2024 06:08:11 06/16/20 24 06/17/2024 LIPID PANEL LDL calc comment: FURNITURE DETAILER Not Available [facility] ([facility]) [address] [place], [address], 06/17/2024 06:08:11 07/01/19 25 07/01/2024 MAMMO , scree gio, digit al, bilat eral No observ ation record ed. [email or web address] Not Available 2024 10:12:14 Result Notes None recorded. Problems Name Problem SNOMED Code Status Onset Date Resolution Date Notes Provider Name and Address Organization Details Recorded Time Anxiety 28088956 Active Shandra Jean baker, [place] [facility] 13:08:46 Atypical chest pain [id number] Active Shandra Jean null, [place] [facility] 13:09:02 Binge eating disorder [id number] Active Shandra Jean null, [place] [facility] 13:09:11 Cyst of breast 878965955 Active Shandra [place] null, [place] [facility] 13:09:22 Renal impairment 661065336 Active Shandra [place], [place] [facility] 3 13:09:36 Dissection of coronary artery 295277445 Active Shandra [place], [place] [facility] 3 13:09:45 Depressive disorder 77768664 Active Shandra [place], [place] [facility] 3 13:09:53 Dyspnea at rest 225183210 Active Shandra [place], [place] [facility] 3 13:10:04 Gastroesop hageal reflux disease 234543704 Active Shandra [place] null, [place] [facility] 3 13:10:27 Impaired fasting glycemia 615797476 Active Shandra [place] null, [place] [facility] 3 13:10:32 Insomnia 253455866 Active Shandra Jean null, [place] [facility] 3 13:10:41 Lateral epicondyli tis 947367762 Active Shandra Jean null, [place] [facility] 3 13:10:50 Medial epicondyli tis 02330919 Active Shandra [place] null, [place] [facility] 3 13:10:58 Myocardial infarction 81007896 Active NSTEMI (non-ST elevated myocardial infarction ) Shandra [place] null, [place] - [facility] 3 13:11:32 Obesity 381055933 Active Shandra [place] null, [place] [facility] 3 13:11:45 Posttrauma tic stress disorder 06169849 Active Shandra [place] null, [place] - [facility] 3 13:11:52 Atrophic vaginitis 83716391 Active Shandra [place] null, [place] [facility] 3 13:12:24 Vaginal pain 97604192 Active Shandra [place] null, [place] - [facility] 13:12:34 Chronic kidney disease stage 3A 124097272 Active 2024 SONALI DUENAS PA-C [address], [place], [address], [facility] - [facility] 5 15:43:31 Chronic back pain 214520552 Active 2024 SONALI DUENAS PA-C [address], [place], [address], [facility] - [facility] 5 15:43:35 Notes:ASCUS,Fibroids,Microhe maturia,Tubal ligation, Problem Notes None recorded. Procedures Surgical History Date Name Laterality Status Provider Name and Address Organization Details Recorded Time 3 Most Recent Mammogram completed SONALI DUENAS PA-C [address] [facility], [place], [address], [facility] - [facility] 06/19/2023 10:48:16 2 Date of Last Pap Smear completed [facility] 03/27/2023 13:14:02 9 Date of Last Colonoscopy completed [facility] 03/27/2023 13:15:00 9 Colonoscopy completed [facility] 03/27/2023 13:15:05 Imaging Results Imaging Date Name Status LastModified by Organiz ation Details LastModified Time 07/01/2024 MAMMO, screening, digital, bilateral completed [email or web address] Information not available 07/01/2024 10:12:14 Procedure Notes None recorded. Medical Equipment None Reported. Allergies No known drug allergies Medications Name Sig Start Date Stop Date Status Note LastModified by Organization Details LastModified Time cyclobenzap rine 10 mg tablet TAKE ONE TABLET BY MOUTH THREE TIMES A DAY NEEDED FOR SPASM active Not Available Not Available No t Available amoxicillin 500 mg capsule TAKE ONE CAPSULE BY MOUTH EVERY 8 HOURS FOR 7 DAYS 07/03 completed Not Available Not Available Not Available lamotrigine 150 mg tablet TAKE ONE TABLET BY MOUTH EVERY DAY active Not Available Not Available No t Available trazodone 50 mg tablet TAKE ONE TABLET BY MOUTH DAILY AT BEDTIME NEEDED FOR SLEEP active Not Available Not Available No t Available fluconazole 150 mg tablet TAKE 1 TABLET BY MOUTH EVERY 48 HOURS; TAKE FIRST TABLET TODAY, IF SYMPTOMS PERSIST AFTER 2 DAYS TAKE THE 2ND TABLET 08/14 completed Not Available Not Available Not Available clopidogrel 75 mg tablet TAKE ONE TABLET BY MOUTH EVERY DAY 07/03 completed Not Available Not Available Not Available sulfamethox azole 800 mg-trimetho prim 160 mg tablet TAKE ONE TABLET BY MOUTH TWICE A DAY FOR 3 DAYS 07/03 completed Not Available Not Available Not Available omeprazole 40 mg capsule,del ayed release TAKE ONE CAPSULE BY MOUTH EVERY DAY active Not Available Not Available No t Available aspirin 81 mg tablet,armando yed release TAKE ONE TABLET BY MOUTH EVERY DAY active Not Available Not Available No t Available oxycodone-a cetaminophe n 5 mg-325 mg tablet TAKE ONE TABLET BY MOUTH EVERY 6 HOURS IF NEEDED FOR SEVERE PAIN FOR 2 DAYS 07/03 completed Not Available Not Available Not Available lorazepam 0.5 mg tablet 07/03 completed Not Available Not Available Not Available IBU 600 mg tablet TAKE ONE TABLET BY MOUTH THREE TIMES A DAY FOR 7 DAYS 07/03 completed Not Available Not Available Not Available cephalexin 500 mg capsule Take 1 capsule twice a day by oral route for 5 days. 10/16 completed Not Available Not Available Not Available buspirone 30 mg tablet TAKE ONE TABLET BY MOUTH IN THE MORNING AND TAKE ONE-HALF TABLET BY MOUTH EVERY EVENING active Not Available Not Available No t Available triamcinolo ne acetonide 0.1 % topical ointment APPLY TOPICALLY 2 TIMES A DAY. APPLY LETNIL SIZE OR LESS TO AFFECTED AREA TWICE DAILY. WHEN SYMPTOMS RESOLVE, CONTINUE NIGHTLY FOR 1 WEEK TH 05/10 completed Not Available Not Available Not Available gabapentin 300 mg capsule TAKE TWO CAPSULES BY MOUTH TWICE A DAY active Not Available Not Available No t Available codeine 10 mg-guaifene sin 100 mg/5 mL oral liquid TAKE 2.5ML BY MOUTH EVERY 6 HOURS NEEDED FOR COUGH AND CONGESTIO N 07/03 completed Not Available Not Available Not Available estradiol 0.01% (0.1 mg/gram) vaginal cream 1 GM VAGINALLY DAILY AT BEDTIME 08/14 completed Not Available Not Available Not Available hydroxyzine HCl 10 mg tablet TAKE ONE TO TWO TABLETS BY MOUTH TWICE A DAY NEEDED FOR ANXIETY active Not Available Not Available No t Available bupropion HCl XL 300 mg 24 hr tablet, extended release TAKE ONE TABLET BY MOUTH EVERY MORNING active Not Available Not Available No t Available metoprolol tartrate 25 mg tablet TAKE ONE TABLET BY MOUTH TWICE A DAY active Not Available Not Available No t Available duloxetine 30 mg capsule,del ayed release TAKE ONE CAPSULE BY MOUTH EVERY DAY TAKE IN ADDITION TO 60MG FOR A TOTAL DAILY DOSE OF 90MG 07/03 completed Not Available Not Available Not Available duloxetine 60 mg capsule,del ayed release TAKE ONE CAPSULE BY MOUTH DAILY AT BEDTIME active Not Available Not Available No t Available estradiol 10 mcg vaginal tablet TAKE 1 TABLET VAGINALLY TWICE WEEKLY AT BEDTIME 02/23 completed Not Available Not Available Not Available Stool Softener-St imulant Laxative 8.6 mg-50 mg capsule TAKE TWO CAPSULES BY MOUTH EVERY DAY NEEDED FOR 14 DAYS FOR CONSTIPAT ION active Not Available Not Available No t Available Lagevrio 200 mg capsule (EUA) TAKE 4 CAPSULES BY MOUTH EVERY 12 HOURS FOR 5 DAYS. WITH OR WITHOUT FOOD 02/23 completed Not Available Not Available Not Available Vitals Date Recorded Body height Body mass index (BMI) Body weight Oxygen saturation Oxygen saturation in Arterial blood by Pulse oximetry Heart rate Systolic blood pressure Diastolic blood pressure Provider Name and Address Organization Details Last Updated DateTime 152.4 cm 50.1 kg/m2 336356. 75 g 97 % 97 % 52 /min 128 mm[Hg] 72 mm[Hg] Shandra Pena [facility] 13:44:33 Date Recorded Heart rate Systolic blood pressure Diastolic blood pressure Provider Name and Address Organization Details Last Updated DateTime 10/06/2023 62 /min 132 mm[Hg] 75 mm[Hg] Not Available [facility] 10/06/2023 13:32:04 Date Recorded Heart rate Systolic blood pressure Diastolic blood pressure Provider Name and Address Organization Details Last Updated DateTime 10/07/2023 52 /min 128 mm[Hg] 68 mm[Hg] Not Available [facility] 10/07/2023 15:06:03 Date Recorded Heart rate Systolic blood pressure Diastolic blood pressure Provider Name and Address Organization Details Last Updated DateTime 10/09/2023 51 /min 132 mm[Hg] 68 mm[Hg] Not Available [facility] 10/09/2023 15:14:05 Date Recorded Heart rate Systolic blood pressure Diastolic blood pressure Provider Name and Address Organization Details Last Updated DateTime 10/10/2023 57 /min 137 mm[Hg] 63 mm[Hg] Not Available [facility] 10/10/2023 15:18:07 Date Recorded Heart rate Systolic blood pressure Diastolic blood pressure Provider Name and Address Organization Details Last Updated DateTime 10/11/2023 59 /min 136 mm[Hg] 70 mm[Hg] Not Available [facility] 10/11/2023 16:38:05 Date Recorded Heart rate Systolic blood pressure Diastolic blood pressure Provider Name and Address Organization Details Last Updated DateTime 10/14/2023 58 /min 121 mm[Hg] 64 mm[Hg] Not Available [facility] 10/14/2023 17:14:05 Date Recorded Heart rate Heart rate Systolic blood pressure Diastolic blood pressure Systolic blood pressure Diastolic blood pressure Provider Name and Address Organization Details Last Updated DateTime 55 /min 52 /min 144 mm[Hg] 64 mm[Hg] 134 mm[Hg] 64 mm[Hg] Not Available [facility] 10:18:04 Date Recorded Body height Body mass index (BMI) Body weight Oxygen saturation Oxygen saturation in Arterial blood by Pulse oximetry Heart rate Systolic blood pressure Diastolic blood pressure Provider Name and Address Organization Details Last Updated DateTime 152.4 cm 48.3 kg/m2 701509. 12 g 97 % 97 % 54 /min 122 mm[Hg] 80 mm[Hg] [facility] 11:03:20 Date Recorded Heart rate Systolic blood pressure Diastolic blood pressure Provider Name and Address Organization Details Last Updated DateTime 10/17/2023 55 /min 123 mm[Hg] 64 mm[Hg] Not Available [facility] 10/17/2023 14:46:05 Date Recorded Heart rate Systolic blood pressure Diastolic blood pressure Provider Name and Address Organization Details Last Updated DateTime 10/18/2023 65 /min 126 mm[Hg] 65 mm[Hg] Not Available [facility] 10/18/2023 13:55:05 Date Recorded Heart rate Systolic blood pressure Diastolic blood pressure Provider Name and Address Organization Details Last Updated DateTime 10/19/2023 53 /min 140 mm[Hg] 68 mm[Hg] Not Available [facility] 10/19/2023 16:45:07 Date Recorded Heart rate Systolic blood pressure Diastolic blood pressure Provider Name and Address Organization Details Last Updated DateTime 10/21/2023 56 /min 119 mm[Hg] 57 mm[Hg] Not Available [facility] 10/21/2023 12:53:01 Date Recorded Heart rate Systolic blood pressure Diastolic blood pressure Provider Name and Address Organization Details Last Updated DateTime 10/23/2023 55 /min 139 mm[Hg] 68 mm[Hg] Not Available [facility] 10/23/2023 15:29:06 Date Recorded Heart rate Systolic blood pressure Diastolic blood pressure Provider Name and Address Organization Details Last Updated DateTime 11/08/2023 48 /min 136 mm[Hg] 62 mm[Hg] Not Available [facility] 11/08/2023 10:13:03 Date Recorded Heart rate Systolic blood pressure Diastolic blood pressure Provider Name and Address Organization Details Last Updated DateTime 11/10/2023 53 /min 127 mm[Hg] 66 mm[Hg] Not Available [facility] 11/10/2023 10:59:01 Date Recorded Heart rate Systolic blood pressure Diastolic blood pressure Provider Name and Address Organization Details Last Updated DateTime 11/11/2023 54 /min 127 mm[Hg] 77 mm[Hg] Not Available [facility] 11/11/2023 10:51:01 Date Recorded Heart rate Systolic blood pressure Diastolic blood pressure Provider Name and Address Organization Details Last Updated DateTime 11/13/2023 55 /min 137 mm[Hg] 72 mm[Hg] Not Available [facility] 11/13/2023 10:10:04 Date Recorded Heart rate Systolic blood pressure Diastolic blood pressure Provider Name and Address Organization Details Last Updated DateTime 11/14/2023 52 /min 133 mm[Hg] 59 mm[Hg] Not Available [facility] 11/14/2023 06:27:03 Date Recorded Heart rate Systolic blood pressure Diastolic blood pressure Provider Name and Address Organization Details Last Updated DateTime 11/15/2023 62 /min 118 mm[Hg] 71 mm[Hg] Not Available [facility] 11/15/2023 09:53:02 Date Recorded Heart rate Systolic blood pressure Diastolic blood pressure Provider Name and Address Organization Details Last Updated DateTime 11/16/2023 57 /min 138 mm[Hg] 71 mm[Hg] Not Available [facility] 11/16/2023 12:25:05 Date Recorded Heart rate Systolic blood pressure Diastolic blood pressure Provider Name and Address Organization Details Last Updated DateTime 11/18/2023 52 /min 120 mm[Hg] 65 mm[Hg] Not Available [facility] 11/18/2023 11:15:08 Date Recorded Heart rate Systolic blood pressure Diastolic blood pressure Provider Name and Address Organization Details Last Updated DateTime 11/24/2023 71 /min 131 mm[Hg] 65 mm[Hg] Not Available [facility] 11/24/2023 11:48:06 Date Recorded Heart rate Systolic blood pressure Diastolic blood pressure Provider Name and Address Organization Details Last Updated DateTime 11/25/2023 52 /min 120 mm[Hg] 65 mm[Hg] Not Available [facility] 11/25/2023 09:21:07 Date Recorded Heart rate Systolic blood pressure Diastolic blood pressure Provider Name and Address Organization Details Last Updated DateTime 11/26/2023 55 /min 125 mm[Hg] 55 mm[Hg] Not Available [facility] 11/26/2023 09:17:04 Date Recorded Heart rate Heart rate Systolic blood pressure Diastolic blood pressure Systolic blood pressure Diastolic blood pressure Provider Name and Address Organization Details Last Updated DateTime 53 /min 69 /min 123 mm[Hg] 62 mm[Hg] 148 mm[Hg] 112 mm[Hg] Not Available [facility] 10:52:09 Date Recorded Heart rate Systolic blood pressure Diastolic blood pressure Provider Name and Address Organization Details Last Updated DateTime 11/28/2023 58 /min 137 mm[Hg] 63 mm[Hg] Not Available [facility] 11/28/2023 11:26:09 Date Recorded Heart rate Systolic blood pressure Diastolic blood pressure Provider Name and Address Organization Details Last Updated DateTime 11/29/2023 55 /min 141 mm[Hg] 65 mm[Hg] Not Available [facility] 11/29/2023 11:40:03 Date Recorded Heart rate Systolic blood pressure Diastolic blood pressure Provider Name and Address Organization Details Last Updated DateTime 11/30/2023 55 /min 120 mm[Hg] 54 mm[Hg] Not Available [facility] 11/30/2023 09:28:02 Date Recorded Heart rate Systolic blood pressure Diastolic blood pressure Provider Name and Address Organization Details Last Updated DateTime 12/01/2023 58 /min 143 mm[Hg] 69 mm[Hg] Not Available [facility] 12/01/2023 12:03:03 Date Recorded Heart rate Systolic blood pressure Diastolic blood pressure Provider Name and Address Organization Details Last Updated DateTime 12/02/2023 55 /min 119 mm[Hg] 67 mm[Hg] Not Available [facility] 12/02/2023 10:59:05 Date Recorded Heart rate Heart rate Systolic blood pressure Diastolic blood pressure Systolic blood pressure Diastolic blood pressure Provider Name and Address Organization Details Last Updated DateTime 59 /min 56 /min 148 mm[Hg] 74 mm[Hg] 138 mm[Hg] 74 mm[Hg] Not Available [facility] 12:48:06 Date Recorded Heart rate Systolic blood pressure Diastolic blood pressure Provider Name and Address Organization Details Last Updated DateTime 12/09/2023 53 /min 132 mm[Hg] 67 mm[Hg] Not Available [facility] 12/09/2023 15:29:02 Date Recorded Heart rate Systolic blood pressure Diastolic blood pressure Provider Name and Address Organization Details Last Updated DateTime 12/11/2023 55 /min 135 mm[Hg] 55 mm[Hg] Not Available [facility] 12/11/2023 12:57:01 Date Recorded Heart rate Systolic blood pressure Diastolic blood pressure Provider Name and Address Organization Details Last Updated DateTime 12/13/2023 57 /min 145 mm[Hg] 68 mm[Hg] Not Available [facility] 12/13/2023 09:20:03 Date Recorded Heart rate Systolic blood pressure Diastolic blood pressure Provider Name and Address Organization Details Last Updated DateTime 12/14/2023 55 /min 135 mm[Hg] 68 mm[Hg] Not Available [facility] 12/14/2023 12:17:06 Date Recorded Heart rate Systolic blood pressure Diastolic blood pressure Provider Name and Address Organization Details Last Updated DateTime 12/15/2023 51 /min 148 mm[Hg] 74 mm[Hg] Not Available [facility]/15/[facility] 09:11:03 Date Recorded Heart rate Systolic blood pressure Diastolic blood pressure Provider Name and Address Organization Details Last Updated DateTime 12/17/2023 55 /min 106 mm[Hg] 72 mm[Hg] Not Available [facility] 12/17/2023 10:33:05 Date Recorded Heart rate Systolic blood pressure Diastolic blood pressure Provider Name and Address Organization Details Last Updated DateTime 12/18/2023 58 /min 127 mm[Hg] 54 mm[Hg] Not Available [facility] 12/18/2023 16:17:05 Date Recorded Heart rate Systolic blood pressure Diastolic blood pressure Provider Name and Address Organization Details Last Updated DateTime 12/19/2023 70 /min 146 mm[Hg] 85 mm[Hg] Not Available [facility] 12/19/2023 09:35:07 Date Recorded Heart rate Systolic blood pressure Diastolic blood pressure Provider Name and Address Organization Details Last Updated DateTime 02/10/2024 51 /min 128 mm[Hg] 69 mm[Hg] Not Available [facility] 02/10/2024 12:09:02 Date Recorded Heart rate Systolic blood pressure Diastolic blood pressure Provider Name and Address Organization Details Last Updated DateTime 02/19/2024 52 /min 152 mm[Hg] 73 mm[Hg] Not Available [facility] 02/19/2024 11:46:06 Date Recorded Body height Body mass index (BMI) Body weight Oxygen saturation Oxygen saturation in Arterial blood by Pulse oximetry Heart rate Systolic blood pressure Diastolic blood pressure Provider Name and Address Organization Details Last Updated DateTime 152.4 cm 48 kg/m2 586629. 72 g 98 % 98 % 54 /min 148 mm[Hg] 94 mm[Hg] May aguirre [place] [facility] 10:34:10 Date Recorded Heart rate Systolic blood pressure Diastolic blood pressure Provider Name and Address Organization Details Last Updated DateTime 02/27/2024 55 /min 152 mm[Hg] 78 mm[Hg] Not Available [facility] 02/27/2024 12:26:07 Date Recorded Heart rate Systolic blood pressure Diastolic blood pressure Provider Name and Address Organization Details Last Updated DateTime 02/29/2024 58 /min 136 mm[Hg] 63 mm[Hg] Not Available [facility] 02/29/2024 16:15:04 Date Recorded Heart rate Systolic blood pressure Diastolic blood pressure Provider Name and Address Organization Details Last Updated DateTime 03/29/2024 52 /min 144 mm[Hg] 76 mm[Hg] Not Available [facility] 03/29/2024 10:49:02 Date Recorded Heart rate Systolic blood pressure Diastolic blood pressure Provider Name and Address Organization Details Last Updated DateTime 03/26/2024 69 /min 115 mm[Hg] 69 mm[Hg] Not Available [facility] 03/29/2024 10:49:04 Date Recorded Heart rate Systolic blood pressure Diastolic blood pressure Provider Name and Address Organization Details Last Updated DateTime 03/31/2024 61 /min 141 mm[Hg] 77 mm[Hg] Not Available [facility] 03/31/2024 11:56:06 Date Recorded Body height Oxygen saturation Oxygen saturation in Arterial blood by Pulse oximetry Heart rate Systolic blood pressure Diastolic blood pressure Provider Name and Address Organization Details Last Updated DateTime 4 152.4 cm 97 % 97 % 74 /min 132 mm[Hg] 76 mm[Hg] Shandra Pena [facility] 4 15:41:45 Date Recorded Body height Body mass index (BMI) Body weight Oxygen saturation Oxygen saturation in Arterial blood by Pulse oximetry Heart rate Systolic blood pressure Diastolic blood pressure Provider Name and Address Organization Details Last Updated DateTime 5 152.4 cm 49.2 kg/m2 031813. 28 g 96 % 96 % 56 /min 122 mm[Hg] 86 mm[Hg] May aguirre [facility] 5 15:43:31 Social History Question Answer Notes LastModified by Organizat ion Details LastModified Time Tobacco Smoking Status Former Smoker May Vazquez [facility] 10/17/2023 11:01:18 What Is Your Level Of Alcohol Consumption? 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 16+yearssincaron cobb [facility], later [facility] Information not available 10/17/2023 What Was The Date Of Your Most Recent Tobacco Screening? 10/17/2023 [email or web address] Information not available 10/29/2023 Sex: Female Functional Status None recorded. Mental Status None recorded. Family History Nothing Reported. Medical History No medical history recorded. Gynecological History Statement/Question Response Date of Last Pap Smear 07/08/2021 Most Recent Mammogram 06/19/2023 Date of Last Colonoscopy 10/19/2018 Colonoscopy 10/19/2018 Obstetrics History GPAL:G 0 P 0 0 0 0 Immunizations Vaccine Type Date Status Note Provider Nam e and Address Organization Details Recorded Time zoster recombinant 2 completed [facility] 10/17/2023 10:56:35 zoster recombinant 0 completed May [facility] 10/17/2023 10:56:35 [facility]oster [facility] 10:56:35 COVID-19, mRNA, LNP-S, PF, 100 mcg/0.5mL dose or 50 mcg/0.25mL dose 1 [facility] 10/17/2023 10:56:35 COVID-19, mRNA, LNP-S, PF, 100 mcg/0.5mL dose or 50 mcg/0.25mL dose 1 [facility] 10/17/2023 10:56:35 COVID-19, mRNA, LNP-S, PF, 100 mcg/0.5mL dose or 50 mcg/0.25mL dose 1 [facility] 10/17/[facility]23 10:56:35 Pneumococcal conjugate PCV20, polysaccharide [id number] conjugate, adjuvant, PF 3 [facility] 10/17/2023 10:56:35 COVID-19, mRNA, LNP-S, bivalent, PF, 50 mcg/0.5 mL or 25mcg/0.25 mL dose 3 [facility] 10/17/[facility]23 10:56:35 COVID-19, mRNA, LNP-S, PF, viviane-sucrose, 30 mcg/0.3 mL 3 [facility] 10/17/2023 10:56:35 Td (adult), 2 Lf tetanus toxoid, preservative free, adsorbed 6 [facility]/17[facility] 10:56:35 Influenza, split virus, quadrivalent, PF 0 completed May Vazquez null, [place] [facility] 10/17/2023 10:56:35 Influenza, split virus, quadrivalent, PF 3 completed May Lizzieham null, [place] [facility] 10/17/2023 10:56:35 Influenza, split virus, quadrivalent, PF 1 completed May Vazquez null, [place] [facility] 10/17/2023 10:56:35 Influenza, split virus, quadrivalent, PF 2 completed May Burlingveronica null, [place] [facility] 10/17/2023 10:56:35 Past Encounters Encounter ID Performer Location Encounter Start Date Encounter Closed Date Diagnosis/Indication Diagnosis SNOMED-CT Code Diagnosis ICD10 Code Diagnosis Note [id number] SONALI DUENAS PA-C Main [address] [facility] [address] [facility],[address] [place] [address] 07/03/2023 14:42:35 07/03/2023 15:32:24 Binge eating disorder 833826703 F50.81 History of binge eating disorder. Not deemed a candidate for weight loss surgery. Additional history of anxiety and depression x 13 years. Follows with a therapist, although she is hoping to transition to a therapist who specialize s in eating disorders; has reached out to 3 providers through [employer] Screening for cardiovascular system disease 598258599 Z13.6 Diabetes m ellitus screening 466058191 Z13.1 History of myocardial infarction 741292518 I25.2 History of NSTEMI on 12/23/20. Followed/m anaged by Dr. Mcmanus ([facility]). Gastroesop hageal reflux disease 735389154 K21.9 Stable. Previously managed on PPI therapy. Now maintained on Acid-Eeze. Insomnia 255342094 F51.0 9 Stable. Maintains on melatonin 20mg, gabapentin , and hydroxyzin e. Mixed anxi ety and depressive disorder 917762377 F41.8 See above Patient ne w to provider [id number] 70232 Z76.89 Here to establish care. Up to date on recommende d health screenings . Will obtain labs prior to next visit. [id number] SONALI DUENAS PA-C Main Office [address] [facility],[address] [place] [address] 08/14/2023 13:36:52 08/14/2023 14:20:49 Chronic kidney disease stage 3A [id number] N18.31 Creatinine 1.3, stable with consistent results when compared to CIS. Patient reports elevated creatinine since mid 20s, previously seen by a nephrologi st. Has never obtained imaging of such. Recommende d renal ultrasound to rule out anatomic/h ereditary abnormalit ies, given abnormal creatinine since young adulthood. Patient declines at this time, but may consider in the future. Myocardial infarction 22 483338 I21.9 History of myocardial infarction secondary to coronary artery dissection . Given history of NSTEMI, statin therapy recommende d. LDL is above goal (<100). Patient declines starting medication at this time, prefers to manage initially with diet. Will plan to recheck in 6 months. May also consider coronary CT, which patient declines at this time. Chronic back pain 008073 002 G89.29 Persistent low back pain, worsened by sedentary lifestyle. Request refills of medication s as below. Discussed increasing physical activity, such as utilizing walk with [facility]ait[facility] program. Binge eating disorder 43 4312869 F50.81 History of binge eating disorder. Not deemed a candidate for weight loss surgery. Additional history of anxiety and depression x 13 years. Has an upcoming intake with a therapist/ registered dietitian who specialize s in this area. [id number] SONALI DUENAS PA-C Main Office [address] [facility],[address] [facility] [place] [address] 10/17/2023 10:55:02 10/17/2023 11:56:27 Active or passive immunization [id number] Z23 Up to date on recommende d imms (including Shingles and Tdap). Adult heal th examination 606424322 Z00.00 Up to date on recommende d [facility] maintenanc e.Blood pressure well-contr olled at 122/80. Myocardial infarction 22 452092 I21.9 History of NSTEMI secondary to coronary artery dissection . Followed/m anaged by [facility] (reviewed note from 07/03/2023). Continues on ASA and metoprolol . Given history of NSTEMI, statin therapy recommende d. LDL is above goal (<100). Patient declines starting medication at this time, prefers to manage initially with diet. Repeat lipid panel ordered for 12/2023. May also consider coronary CT, which patient declines at this time. Encouraged to exercise regularly. Gastroesop hageal reflux disease 902239178 K21.9 Previously managed on PPI therapy, now maintained on Acid-Eeze. Reports worsening GERD sx. Agreeable to PPI therapy at this time. Reviewed endoscopy results from 09/2018. Obesity [id number] E66.9 8 Minutes spent on intensive obesity counseling , including review of measured BMI, and nutritiona l assessment with behavioral therapy to promote weight loss.Five A? s ApproachA ssess: BMI 48.3.Advic e: Recommende d attention to binge eating disorder prior to significan t weight loss efforts. Advised to speak with a therapist regarding eating disorder. Patient encouraged to initiate routine physical activity, with a goal of 150 minutes of cardio and resistance training per week.Agree : patient verbalizes understand ing, although feels this is not a good time to initiate make changes. Currently under significan t stress at home due to daughter's illness.As sist: Verbal counseling provided.A rrange: Will follow-up in 1 year, or sooner if needed by the patient. Depressive disorder 2007 9007 F32.A Resources offered for behavioral health counseling , although declined. Currently under increased stress at home. May reach out if she would like counseling referrals. Chronic ki dney disease stage 3A [id number] N18.31 Creatinine 1.3, stable with consistent results when compared to CIS. Patient reports elevated creatinine since mid 20s, previously seen by a nephrologi st. Has never obtained imaging of such. Recommende d renal ultrasound to rule out anatomic/h ereditary abnormalit ies, given abnormal creatinine since young adulthood. Patient declines at this time, but may consider in the future. Chronic back pain 104163 002 G89.29 Persistent low back pain, worsened by sedentary lifestyle. Maintained on gabapentin and cyclobenza shakila as needed. Discussed increasing physical activity, such as utilizing walk with [facility]aitie program. Binge eating disorder 43 6211194 F50.81 History of binge eating disorder. Not deemed a candidate for weight loss surgery, despite 2 prior attempts. Additional history of anxiety and depression x 13 years. Recommende d to engaged with a therapist/ registered nutritioni st who specialize s in this area. Resources offered, although declined at this time. Insomnia 924470035 F51.0 9 Stable. Maintains on melatonin 20mg, gabapentin , and hydroxyzin e. [id number] SONALI DUENAS PA-C Main Office [address] [facility],[address] [place] [address] 02/24/2024 10:20:43 02/24/2024 11:01:34 Myocardial infarction 38018078 I21.9 History of NSTEMI secondary to coronary artery dissection . Followed/m anaged by [facility] (reviewed note from 07/03/2023). Continues on ASA and metoprolol . Given history of NSTEMI, statin therapy recommende d. LDL is above goal (<100). Patient declines starting medication at this time, prefers to manage initially with diet. Repeat lipid panel ordered for 12/2023, which pt was not yet able to obtain. May also consider coronary CT, which patient declines at this time. Encouraged to exercise regularly. Gastroesop hageal reflux disease 758747045 K21.9 Maintained on omeprazole 40 mg po daily Binge eating disorder 43 4539697 F50.81 History of binge eating disorder. Not deemed a candidate for weight loss surgery, despite 2 prior attempts. Additional history of anxiety and depression x 13 years. Recommende d to engaged with a therapist/ registered nutritioni st who specialize s in this area. Resources offered, although declined at previous visit. Depressive disorder 1882 7862 F32.A Medication provider: Jennifer Christina. Resources offered for behavioral health counseling , although declined. Currently under increased stress at home. May reach out if she would like counseling referrals. Chronic ki dney disease stage 3A 077754847 N18.31 Creatinine 1.3, stable with consistent results when compared to CIS. Patient reports elevated creatinine since mid 20s, previously seen by a nephrologi st. Has never obtained imaging of such. Recommende d renal ultrasound to rule out anatomic/h ereditary abnormalit ies, given abnormal creatinine since young adulthood. Patient declines at this time, but may consider in the future. Will repeat testing at this time. Chronic back pain 094134 002 G89.29 Persistent , intermitte nt low back pain without radiculopa thy symptoms, worsened by sedentary lifestyle. Physical exam reveals tenderness to L3-4 right paraverteb ral muscles. Less likely disc involvemen t in the absence of midline tenderness . No red flag symptoms present. Reviewed in detail supportive measures, and handouts provided as below. Patient declines physical therapy referral at this time. Discussed the role of increasing physical activity and core strengthen ing exercises as prevention for future flare-ups. which patient agrees with. Insomnia 654405349 F51.0 9 Stable. Maintains on melatonin 20mg, gabapentin , and hydroxyzin e. Constipation 12030001 K5 9.00 Reports recent constipati on after resuming normal habits of eating, following a period of irregular dietary habits subsequent to a in the family. Patient reports having 1 BM daily, with current use of Senna Plus. Advised to Increase physical activity, hydration, and fiber intake for constipati on.. May continue us of Senna Plus as needed for constipati on at this time. Up to date on colon cancer screening (due 2028). No melena/hem atochezia reported. Followup criteria provided in detail. Normal grief reaction 27 8980303 F43.20 Recently lost daughter within last 1-2 months. Feels well supported by family. Denies any additional resources at this time, but aware that she may reach out to request at any time. [id number] JENNIFER SAWYER Main Office [address] [facility],[address] [place] [address] 05/10/2024 15:35:36 05/10/2024 16:12:19 Dysuria 12793093 R30.0 Awaiting swab, urine dip with RBC's Denies vaginal spotting. States saw gynecology less than 2 years ago for Pap and to discuss labia irritation was told that she sits on her labia got a donut to sleep sit on. Has tried numerous over-the-c ounter products to her labia perineum and rectal area. Advised just to wash with gentle soap and could try coconut oil but no other topicals. Will refer to [facility] for further evaluation Microscopic hematuria 19 7377700 R31.29 will refer to urogyn since patient has microscopi c hematuria 3+ [id number] SONALI DUENAS PA-C Main Office [address] [facility],[address] [place] [address] 07/09/2024 15:36:42 07/09/2024 16:28:02 Chronic back pain 330467782 G89.29 Persistent , intermitte nt low back pain without radiculopa thy symptoms, worsened by sedentary lifestyle. Physical exam reveals tenderness to L3-4 right paraverteb ral muscles. Less likely disc involvemen t in the absence of midline tenderness . No red flag symptoms present. Reviewed in detail supportive measures, and handouts provided previously . Patient agreeable to physical therapy referral at this time. Discussed the role of increasing physical activity and core strengthen ing exercises as prevention for future flare-ups. which patient agrees with. Myocardial infarction 22 870401 I21.9 History of NSTEMI secondary to coronary artery dissection . Followed/m anaged by [facility] (reviewed note from 07/03/2023). Continues on ASA and metoprolol . Given history of NSTEMI, statin therapy recommende d. LDL is above goal (<100). Patient declines starting medication at this time, prefers to continue managing with diet/exerc ise. Repeat lipid panel ordered for 12/2023, which pt was not yet able to obtain. May also consider coronary CT, which patient declines at this time. Encouraged to exercise regularly. Chronic ki dney disease stage 3A [id number] N18.31 Creatinine 1.24, stable with consistent results when compared to CIS. Patient reports elevated creatinine since mid 20s, previously seen by a nephrologi st. Has never obtained imaging of such. Recommende d renal ultrasound to rule out anatomic/h ereditary abnormalit ies, given abnormal creatinine since young adulthood. Patient declines at this time, but may consider in the future. Will continue to monitor. Binge eating disorder 43 3368828 F50.819 External hemorrhoids 239 33637 K64.4 Experienci ng daily discomfort secondary to external hemorrhoid . Declines pyhysical examinatio n. Agreeable to colorectal referral for future management . Obesity 474615047 E66.9 8 Minutes spent on intensive obesity counseling , including review of measured BMI, and nutritiona l assessment with behavioral therapy to promote weight loss.Five A? s ApproachA ssess: BMI 49.2.Advic e: Recommende d attention to binge eating disorder prior to significan t weight loss efforts with continued program for diet/exerc ise specific to individual s with disordered eating. Advised to speak with a therapist regarding eating disorder. Patient encouraged to initiate routine physical activity, with a goal of 150 minutes of cardio and resistance training per week.Agree : patient verbalizes understand ingAssist: Verbal counseling provided.A rrange: Will follow-up at annual exam Diabetes m ellitus screening 554059452 Z13.1 Screening for cardiovascular system disease 255548330 Z13.6 Thyroid di sorder screening 467085576 Z13.29 Health Concerns Section Related Observation LastModified by Organization Detai ls LastModified Time None Recorded Concern Status LastModified by Organization Details LastModified Time None Recorded Advance Directives Directive None Recorded Payers Encounter Date Sequence Insurance Name Policy Number Policy Ordoñez Covered Member ID Ordoñez Member ID Guarantor Name 08/14/2023 1 [place] [employer] [place] [id number] [place] 08/14/2023 1 [place] [id number] [place] [id number] [place] 10/17/2023 1 [place] [id number] [place] 10/17/2023 1 [place] [id number] [place] [id number] [place] 02/24/2024 1 [place] [id number] [place] 02/24/2024 1 [place] [id number] [place] [id number] [place] 05/10/2024 1 [place] [id number] [place] 05/10/2024 1 [place] [id number] [place] [id number] [place] 07/09/2024 1 [place]MEDIC[place] PPO) [id number] [place] [id number] [place] Notes Date Note Type Note Provider Name and Address Organization Details Recorded Time 08/14/2023 text/html Here for a follo w-up visit to discuss laboratory results. Primary concern at this time is regarding rash underneath breasts bilaterally and underneath skin folds of abdomen. Using lamotrigine with good effect. Agreeable to trialing Desitin. Will plan to use loose, non constrictive clothing at this time. SONALI DUENAS PA-C [address] [facility],[address], [place], [address], [facility] 08/14/2023 21:27:14 10/17/2023 text/html Annual WellnessReported bypatient.Diet and Nutrition:discussed portion control; discussed diet improvement Fracture Risk:no history of fractures; no recent explained fracture; no sudden unexplained fractures Physical Activity:decreased physical activity;poor physical condition;deconditione d due to sedentary lifestyle; discussed weightbearing activities; discussed exercise habits Additional Lifestyle Factors:no tobacco use; no alcohol intake Depression Risk:Under increased stress due to daughter's significant health concerns. Here for annual exam. Denies any major concerns at this time.Of note, Roslyn is under a significant amount of stress while taking care of her daughter with breast cancer. Feels supported by her other children. Eating/physical activity habits have not been optimal, in the setting of increased stress. Health maintenance:1. Up-to-date on breast, colon, and cervical cancer screenings2. Up-to-date on tetanus and shingles immunizations SONALI DUENAS PA-C [address] [facility],[address], [place], [address], [facility] 10/29/2023 13:19:31 02/24/2024 text/html Chief complaint Patient is experiencing back pain and constipation. History of present illness - Patient reports having atruamtic low back pain, located across the midline. - The pain has been present for a long time but had previously subsided. - The pain is similar to prior episodes. - The pain comes and goes, and is currently manageable without medication. - Alleviating factors: has not trialed ice, heat, increased walking - Exacerbating factors: The pain is worse when lifting legs. - Pain relief: Uses ibuprofen 600-800 mg prn, gabapentin 300 mg bid, APAP 650 mg daily prn, and cyclobenzaprine 10 mg po prn (up to tid). - The patient also reports intermittent pain down the leg at times. - The patient is also experiencing constipation. Past medical history - Patient has been taking mediation for an unspecified condition. - Patient has been prescribed Trazodone by a medical provider named Jennifer Christina. Social history - Patient's daughter on December 23. - Patient is currently not very physically active. Current medications - Ibuprofen (600-800mg in the morning) - Gabapentin (once or twice a day) - Tylenol (650mg once a day) - Cyclobenzaprine (up to three times a day) - Metoprolol (not taken on the day of the consultation) - Trazodone (prescribed by another provider) Vitals Blood pressure: 140/94 Physical exam MUSCULOSKELETAL: Tenderness in the back, particularly in the paravertebral area. No midline tenderness in the lumbar area. Leg strength is good. Range of motion is not restricted. NEUROLOGIC: No numbness or tingling. SONALI DUENAS PA-C [address] [facility],[address], [place], [address], [facility] 02/26/2024 09:19:06 05/10/2024 text/html perineal area an d rectum feel warm X one yeardenies vaginal dischargePAP 2022 at [facility] gy[facility], record unavailable and unable to find her [facility] systemColonoscopy within 2 years, no polyps per patientTried tea tree ointmentDesitin ointmentlubricant stick on buttocks seemed to help ramos butter combination to perineal areaHas seen urology long time ago for microscopic hematuria, she is unsure of outcome JENNIFER SAWYER [address] [facility],[address], [place], [address], [facility] 05/10/2024 16:17:24 07/09/2024 text/html Roslyn Todd, a 63-year-old female, reports worsening back pain and knee pain, which affects her ability to walk and climb stairs. She experiences weakness in her legs when ascending stairs but denies any numbness, tingling, or loss of urinary continence. She avoids climbing her basement stairs altogether, which is a flight of about 12, secondary to back pain and leg weakness. Struggles to sit down on her couch, due to the low height of it, which requires her to squat down to reach it. She feels out of balance, attributing it to changes in her stomach size. Roslyn has a history of binge eating disorder, which she finds difficult to manage, and is currently following an online diet plan that alternates low and high carb days. Also including TENISHA workouts into her regimen. She has not found a suitable therapist since her insurance changed. Roslyn also mentions a hemorrhoid causing discomfort and has not had it evaluated. She had a colonoscopy and endoscopy two years ago. Additionally, she feels her ear is blocked but has not been sick recently. SONALI DUENAS PA-C [address] [facility],[address], [place], [address], [facility] 07/12/2024 06:06:10 OBGyn Episode No OBEpisode recorded.
--- OUTSIDE RECORDS SUMMARY | 2024-09-03 13:05 | XMS_ITS | Clinical Summary ---
Author Organization [employer] Address [address] [facility] [address] [place] [address] Care Team Providers Care Cw Operator Name Role Phone Megha Arroyo Unavailable Jairo Patel DDS Unavailable [phone] Allergies No known active allergies Medications buPROPion XL (Wellbutrin XL) 300 MG 24 hr tablet 3 Active busPIRone (Buspar) 30 MG tablet 3 Active lamoTRIgine (LaMICtal) 150 MG tablet 3 Active DULoxetine (Cymbalta) [address] capsule 3 Active DULoxetine (Cymbalta) [address] capsule TAKE ONE CAPSULE BY MOUTH EVERY DAY TAKE IN ADDITION TO 60MG FOR A TOTAL DAILY DOSE OF 90MG 3 Active gabapentin (Neurontin) 300 MG capsule Take 600 mg by mouth 2 times daily. 3 Active Aspirin Adult Low Strength 81 MG EC tablet Take 81 mg by mouth in the morning. 3 Active metoprolol tartrate (Lopressor) 25 MG tablet Take 25 mg by mouth 2 times daily. 3 Active clopidogrel (Plavix) 75 MG tablet Take 75 mg by mouth in the morning. 3 Active hydrOXYzine HCl (Atarax) 10 MG tablet Take by mouth. Ac tive baclofen (Lioresal) 10 MG tablet Take by mouth 3 times daily. Active fluticasone (Flovent) 110 MCG/ACT inhaler Inhale 1 puff in the morning and at bedtime. Rinse mouth with water after use to reduce aftertaste and incidence of candidiasis. Do not swallow. Active albuterol 108 (90 Base) MCG/ACT inhaler Inhale 2 puffs every 6 (six) hours if needed for wheezing. Active LORazepam (Ativan) 0.5 MG tablet Take 1 tablet (0.5 mg) by mouth See administration instructions for 1 day. Take 1 tab po 1 hr preop oral surgery. Bring remaining 2 tabs with you to surgery. Do not take either until speaking to the Dr. Do not drive while taking this med. 3 tablet 3 Active LORazepam (Ativan) 0.5 MG tablet Take 1 tablet (0.5 mg) by mouth every 6 (six) hours if needed for anxiety for up to 2 days. Take 1 tab po hs evening before oral surgery. Take 1 tab 1 hr preop. Bring remaining 2 tabs with you to surgery. Do not take either one until speaking to the Dr. Do not drive while taking this med. 4 tablet 3 Active cyclobenzaprin e (Flexeril) 10 MG tablet Take 5 mg by mouth if needed in the morning, at noon, and at bedtime for muscle spasms. Active omeprazole (PriLOSEC) [address] capsule Take 20 mg by mouth before breakfast. Do not crush or chew. Active Active Problems No known active problems Social History Tobacco Use Types Packs/Day Years Used Date Smoking Tobacco: Never Smokeless Tobacco: Never Tobacco Cessation:Counseling Given: Not Answered Alcohol Use Standard Drinks/Week Comments Not Currently 0 (1 standard drink = 0.6 oz pur e alcohol) Alcohol Answer Date Recorded Frequency of Alcohol Consumption Not on file 04/27/2024 Average Number of Drinks Not on file 024 Frequency of Binge Drinking Not on file 03/31 Score 0 04/27/2024 Comments Unknown Sex and Gender Information Value Date Recorded Sex Assigned at Female 12/25/2022 9:08 AM EDT Legal Sex Female 8:39 PM EST Gender Identity Female 05/10/2022 8:39 PM EST Sexual Orientation Straight 05/10/2022 8: 39 PM EST Last Filed Vital Signs Vital Sign Reading Time Taken Comments Blood Pressure 138/75 04/27/2024 9:57 AM EDT Pulse 55 04/27/2024 9:57 AM EDT Temperature 36.5 ??C (97.7 ??F) 04/27/2024 9:57 AM ED T Respiratory Rate - - Oxygen Saturation - - Inhaled Oxygen Concentration - - Weight - - Height - - Body Mass Index - - Plan of Treatment Upcoming Encounters Date Type Department Care Team (Late st Contact Info) Description 10/28/2024 9:45 AM EDT Office Visit [address] [phone] Darlene Zabala Health Maintenance Due Date Last Done Comments CT Colonography 1961 Colonoscopy 1961 Colorectal Cancer Screening 1961 Depression Screening 1961 FIT DNA/Cologuard 1961 FIT 1961 FOBT 1961 HIV Screening 1961 Lipid Panel 1961 SDOH Screening 1961 Sigmoidoscopy 1961 Hepatitis C Screening 1979 Pap Smear 1982 Cervical Cancer Screening 1991 HPV/Cotest 1991 Mammogram 2001 DTaP/Tdap/Td Vaccines (1 - Tdap) 03/26/2016 03/25/2016 RSV Patients and Patients Aged 60 years or older (1 - Risk 60-74 years 1-dose series) 2021 Dental Oral Exam 09/10/2023 03/11/2023, 06/17/2018 COVID-19 Vaccine ( season) 2024 04/16/2023, 07/12/2022, 06/03/2021, Additional history exists Influenza Vaccine (#1) 2024 , 06/18/2022, 06/03/2021, Additional history exists Dental X-Ray: Bitewings 03/12/2024 03/11/2023, 06/17 Tobacco Screening 04/18/2024 04/18/2023 Dental Prophylaxis 10/27/2024 04/27/2024, 0 10/21/2023, 04/08/2023, Additional history exists Alcohol/Substance Use Screening 04/27/2025 04/27/2024 Dental X-Ray: Full Mouth 03/12/2026 03/11/2023, 05/30 Pneumococcal Vaccine: 50+ Years Completed 04/28/2023 Zoster Vaccines Completed 04/28/2023, 02/0 11/2021, 03/21/2020 HIB Vaccines Aged Out No longer eligi ble based on patient's age to complete this topic HPV Vaccines Aged Out No longer eligi ble based on patient's age to complete this topic Hepatitis A Vaccines Aged Out No long er eligible based on patient's age to complete this topic Hepatitis B Vaccines Aged Out No long er eligible based on patient's age to complete this topic IPV Vaccines Aged Out No longer eligi ble based on patient's age to complete this topic Meningococcal Vaccine Aged Out No yokasta tressa eligible based on patient's age to complete this topic RSV under 20 months Aged Out No longe r eligible based on patient's age to complete this topic Rotavirus Vaccines Aged Out No longer eligible based on patient's age to complete this topic Procedures Procedure Name Priority Date/Time Associated Diagnosis Comments PROPHYLAXIS - ADULT Routine 04/27/2024 9 :45 AM EDT INTRAORAL - COMPLETE SERIES OF RADIOGRAPHIC IMAGES Routine 03/11/2023 4:30 PM EDT PERIODIC ORAL EVALUATION - ESTABLISHED PATIENT Routine 03/11/2023 4:30 PM EDT from Last 3 Months or Most Recently Relevant to Health Maintenance Insurance [facility] [employer] Care Teams Cw Operator Relationship Specialty Start Date End Date Megha Arroyo [address] [place] [address] Dental Canvas Marker 10/21/23 Jairo Patel DDS [address] [place] [address] Dentist 10/21/23
== END 2024-09-03 11:21 | disposition home or self-care (01) ==
LOC: HO.HOP 11:16
PROVIDERS: PCP Family Medicine; Visit Provider Clinical Nurse Specialist Psychiatric/Mental Health
DX: F43.10 Post-traumatic stress disorder, unspecified (principal); F33.1 Major depressive disorder, recurrent, moderate; F43.20 Adjustment disorder, unspecified; Z63.4 Disappearance and death of family member
CPT/HCPCS: 99214

== ENCOUNTER → 2024-09-03 11:16 | Outpatient (BNVA) | payer MEDICARE, SELFPAY | PROVIDERS: PCP Family Medicine; Visit Provider Clinical Nurse Specialist Psychiatric/Mental Health | DX: F43.10 Post-traumatic stress disorder, unspecified (principal); F33.1 Major depressive disorder, recurrent, moderate; F50.811 Binge eating disorder, moderate; F43.20 Adjustment disorder, unspecified; Z63.4 Disappearance and death of family member; Z71.89 Other specified counseling | CPT/HCPCS: 99212 ==

== ENCOUNTER 2024-10-04 13:16 | Outpatient (AMB) | payer MEDICARE, SELFPAY ==
--- OUTSIDE RECORDS SUMMARY | 2024-10-04 15:44 | XMS_ITS | Clinical Summary ---
Author Organization [employer] Address [address] [facility] [address] [place] [address] Care Team Providers Care Hot Tar Roofer Helper Name Role Phone Megha Arroyo Unavailable Jairo Patel DDS Unavailable [phone] Allergies No known active allergies Medications [...] (Atarax) 10 MG tablet Take by mouth. Activ e baclofen (Lioresal) 10 MG tablet Take by [...] taking this med. 4 tablet 3 Active cyclobenzaprine (Flexeril) 10 MG tablet Take 5 mg [...] Description 10/28/2024 9:45 AM EDT Office Visit [address] [phone] Darlene Zabala Health Maintenance Due Date Last [...] Most Recently Relevant to Health Maintenance Insurance [facility] [employer]EX C[employer] Care Teams Hot Tar Roofer Helper Relationship Specialty Start Date End Date Megha Arroyo [address] [facility] [place] [address] Dental Wardrobe Assistant 10/21/23 Jairo Patel DDS [address] [facility] [place] [address] Dentist 10/21/23
--- OUTSIDE RECORDS SUMMARY | 2024-10-04 15:44 | XMS_ITS | Data Portability ---
Author Organization [facility], [employer] Address [address] [place] [id number] Assessment Encounter Date Assessment Date Assessment LastModified [...] diagnostic testing or treatment (one needed): . [email or web address] Not available 08/14/2023 21:22:00 10/17/2023 10/17/2023 The patient was advised to continue a healthy diet and exercise regularly. Preventative care discussed in detail. Eight minutes spent on each counselling about depression, alcohol, obesity, and cardiovascular health. Further preventative care counselling discussed as documented below. Not available 10/29/2023 13:18:02 02/24/2024 02/24/2024 Appointments - Follow-up appointment in 6 to 8 weeks, labs prior The following time was spent on todays E/M encounter, including preparing for the visit, reviewing results, seeing the patient, and documentation on the date of service of the encounter: 40 mins [email or web address] Not available 02/26/2024 09:12:22 05/10/2024 05/10/2024 The following time was spent on todays E/M encounter, including preparing for the visit, reviewing results, seeing the patient, and documentation on the date of service of the encounter: 30 18026 15-29 minutes 39217 30-44 minutes 83117 45-59 minutes 86795 60-74 minutes 29437 10-19 minutes 62628 20-29 minutes 25172 30-39 minutes 92845 40-54 minutes [email or web address] Not available 05/10/2024 16:16:12 07/09/2024 07/09/2024 Assessment [...] of service of the encounter: 45 mins Not available 07/12/2024 06:04:41 Plan of Treatment Reminders Order Date Submit Date Provider Last Modified By Organization Details Last Modified Time Details Appointments Annual Exam 2024 01:40P M SONALI DUENAS PA-C Not available Not available Not available Lab lipid panel, serum 2024 025 [facility], [address] [place], [address], 07/12/2024 06:06:14 TSH, ultra-s ensitiv e, serum 2024 025 [facility], [address] [facility], [facility], [place], [address], 07/12/2024 06:06:14 CBC 2024 025 [facility], [address], [place], [address], 07/12/2024 06:06:14 HbA1c (hemogl obin A1c), blood 2024 025 [facility], [address], [place], [address], 07/12/2024 06:06:13 vaginal pathoge ns panel, PRITI+pro be, vaginal fluid 2023 024 [facility], [address], [place], [address], 05/12/2024 14:06:53 urinaly sis, dipstic k 2023 024 [place] [address] Main Office, [address] [place] [address], [address], [place], [address], 05/10/2024 16:18:50 CMP, serum or plasma 2023 024 [facility], [address], [place], [address], 06/17/2024 06:08:10 lipid panel, serum 2023 024 [facility], [address], [place], [address], 06/17/2024 06:08:11 lipid panel, serum 2023 024 [facility] (Centralized Electronic Ordering - All Locations), Patient Can Go To The Location Of Their Choice, [id number] 01/12/2024 03:03:50 Referral colon & rectal surgeon referra l 2024 025 [facility] Colorectal Surgery Scheduling Dept, [facility] [address] [facility], [place], [address], 09/03/2024 13:49:17 gynecol ogist referra l 2023 024 [email or web address] Not available 06/01/2024 09:02:25 Procedures None recorde d. Surgeries None recorde d. Imaging None recorde d. Medication Orders Senna Plus 8.6 mg-50 mg capsule 2023 024 [facility], [address] [place], [address], 02/26/2024 09:01:34 omepraz ole 40 mg capsule ,delaye d release 2023 024 [facility], [address] [place], [address], 10/29/2023 13:17:59 cyclobe nzaprin e 10 mg tablet 2023 024 [facility], [address] [place], [address], 08/14/2023 21:26:53 gabapen tin 300 mg capsule 2023 024 [email or web address], [address] [place], [address], 10/17/2023 10:59:57 Patient TargetsNo targets recorded. 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 Referring Physician: Amelia Gramajo, Internal Medicine, Encounter Date: 05/10/2024 Colon & Rectal Surgeon Refer ral for External hemorrhoids Referring Physician: Sonali Duenas, Family Medicine, Encounter Date: 07/09/2024 Results Created Date Observation Date Name Description Value Unit Range Abnormal Flag Note LastModifiedBy Organization Detail LastModifiedTime 08/12/19 24 08/12/2023 COMPL ETE BLOOD COUNT WBC 5.8 K/mm3 [...] 08/12/2023 14:21:44 08/12/1908/12/2023 COMPL ETE BLOOD COUNT HGB 13.5 gm/dL (11.7- 15.5) Not Available [facility] (Centralized Electronic Ordering - All Locations) Patient Can Go To The Location Of Their Choice, 08/12/2023 14:21:44 08/12/1908/12/2023 COMPL ETE BLOOD COUNT HCT 41.5 % [...] 08/12/2023 14:21:44 08/12/1908/12/2023 COMPL ETE BLOOD COUNT MCH 30.9 pg [...] Their Choice, 08/12/2023 14:21:44 08/12/19 24 08/12/2023 HEMOG LOBIN A1C hemoglobin A1C 5.4 % [...] of Clini seth and Appli ed Resea [facility] and Educa tion Volum e 43, Suppl [...] 08/12/2023 COMPR EHENS EDDIE METAB OLIC PANL creatinine 1.3 mg/dL (0.5-1 .0) high Not Available [facility] (Centralized Electronic Ordering - All Locations) Patient Can Go To The Location Of Their Choice, 08/12/2023 15:01:25 08/12/19 24 08/12/2023 COMPR EHENS EDDIE METAB OLIC PANL sodium 140 mmol/ L (133-1 45) Not Available [facility] (Centralized Electronic Ordering - All Locations) Patient Can Go To The Location Of Their Choice, 08/12/2023 15:01:25 08/12/19 24 08/12/2023 COMPR EHENS EDDIE METAB OLIC PANL potassium [...] 08/12/2023 COMPR EHENS EDDIE METAB OLIC PANL calcium 9.3 mg/dL (8.6-1 0.5) Not Available [facility] (Centralized Electronic Ordering - All Locations) Patient Can Go To The Location Of Their Choice, 08/12/2023 15:01:25 08/12/19 24 08/12/2023 COMPR EHENS EDDIE METAB OLIC PANL bilirubin,to dawson 0.4 mg/dL (0-1.2 ) Not Available [facility] (Centralized Electronic Ordering - All Locations) Patient Can Go To The Location Of Their Choice, 08/12/2023 15:01:25 08/12/1908/12/2023 COMPR EHENS EDDIE METAB OLIC PANL total [...] 08/12/2023 COMPR EHENS EDDIE METAB OLIC PANL AST [...] Go To The Location Of Their Choice, [id number] 08/12/2023 15:01:26 08/12/19 24 08/12/2023 LIPID PANEL LDL cholesterol, calculated 133 mg/dL (0-130 ) high Not Available [facility] (Centralized Electronic Ordering - All Locations) Patient Can Go To The Location Of Their Choice, [id number] 08/12/2023 15:01:26 08/12/19 24 08/12/2023 LIPID PANEL non HDL cholesterol (calc) 164 mg/dL (<160) high Not Available [facility] (Centralized Electronic Ordering - All Locations) Patient Can Go To The Location Of Their Choice, [address] 08/12/2023 15:01:26 05/10/20 24 05/11/2024 NUSWA B VAGIN ITIS PLUS (VG+) atopobium vaginae Low - 0 score Not Available [facility] ([facility]) [address] [place], [address], 05/12/2024 14:06:53 05/10/2005/11/2024 NUA B VAGIN ITIS PLUS (VG+) bvab 2 Low - 0 score Not Available [facility] ([facility]) [address] [place], [address], 05/12/2024 14:06:53 05/10/2005/11/2024 NUSWA B VAGIN ITIS PLUS (VG+) megasphaera 1 [...] prese nce of BV. Not Available [facility] ([facility]) [address] [facility], [place], [address], 05/12/2024 14:06:53 05/10/20 24 05/11/2024 NUSWA B VAGIN ITIS PLUS (VG+) shannan albicans, PRITI Negati ve negati ve Not Available [facility] ([facility]) [address] [facility], [place], [address], 05/12/2024 14:06:53 05/10/20 24 05/11/2024 NUSWA B VAGIN ITIS PLUS (VG+) shannan glabrata, PRITI Negati ve negati ve Not Available [facility] ([facility]) [address] [facility], [place], [address], 05/12/2024 14:06:53 05/10/20 24 05/12/2024 NUA B VAGIN ITIS PLUS (VG+) trich vag by PRITI Negati ve negati ve Not Available [facility] ([facility]) [address] [facility], [place], [address], 05/12/2024 14:06:53 05/10/2005/12/2024 NUSWA B VAGIN ITIS PLUS (VG+) chlamydia trachomatis, PRITI Negati ve negati ve Not Available [facility] ([facility]) [address] [facility], [place], [address], 05/12/2024 14:06:53 05/10/20 24 05/12/2024 NUA B VAGIN ITIS PLUS (VG+) neisseria gonorrhoeae, PRITI Negati ve negati ve Not Available [facility] ([facility]) [address] [facility], [place], [address], 05/12/2024 14:06:53 05/10/20 24 05/10/2024 urina lysis , dipst ick Leukocytes negati ve Not Available Main Office [address] [place] [address] [address], [place], [address], 05/10/2024 15:56:33 05/10/20 24 05/10/2024 urina lysis , dipst ick Nitrite negati ve Not Available Main Office [address] [facility] [address], [place], [address], 05/10/2024 15:56:33 05/10/20 24 05/10/2024 urina lysis , dipst ick Urobilinogen negati ve Not Available Main Office [address] [facility] [address], [place], [address], 05/10/2024 15:56:33 05/10/20 24 05/10/2024 urina lysis , dipst ick Protein negati ve Not Available Main Office [address] [facility] [address], [place], [address], 05/10/2024 15:56:33 05/10/20 24 05/10/2024 urina lysis , dipst ick pH 5.5 Not Available Main Offic e [address] [facility] [address], [place], [address], 05/10/2024 15:56:33 05/10/20 24 05/10/2024 urina lysis , dipst ick Blood 3+ Not Available Main Offic e [address] [facility] [address], [place], [address], 05/10/2024 15:56:33 05/10/20 24 05/10/2024 urina lysis , dipst ick Specific Chambers 1.020 Not Available Main O ffice [address] [facility] [address], [place], [address], 05/10/2024 15:56:33 05/10/20 24 05/10/2024 urina lysis , dipst ick Ketone negati ve Not Available Main Office [address] [facility] [address], [place], [address], 05/10/2024 15:56:33 05/10/20 24 05/10/2024 urina lysis , dipst ick Bilirubin negati ve Not Available Main Office [address], [place], [address], 05/10/2024 15:56:33 05/10/20 24 05/10/2024 urina lysis , dipst ick Glucose negati ve Not Available Main Office [address], [place], [address], 05/10/2024 15:56:33 06/16/20 24 06/16/2024 COMP. METAB OLIC PANEL (14) glucose 92 mg/dL 70-99 normal Not Available [facility] ([facility]) [address] [place], [address], 06/17/2024 06:08:10 06/16/20 24 06/16/2024 COMP. METAB OLIC PANEL (14) BUN 22 mg/dL 8-27 normal Not Available [facility] ([facility]) [address] [place], [address], 06/17/2024 06:08:10 06/16/20 24 06/16/2024 COMP. METAB OLIC PANEL (14) creatinine 1.24 mg/dL 0.57-1 .00 above high normal Not Available [facility] ([facility]) [address] [place], [address], 06/17/2024 06:08:10 06/16/20 24 06/16/2024 COMP. METAB OLIC PANEL (14) eGFR 49 mL/mi n/1.7 3 >59 below low normal Not Available [facility] ([facility]) [address] [place], [address], 06/17/2024 06:08:10 06/16/20 24 06/16/2024 COMP. METAB OLIC PANEL (14) BUN/creatini ne ratio 18 12-28 normal Not Available [facility] ([facility]) [address] [place], [address], 06/17/2024 06:08:10 06/16/20 24 06/16/2024 COMP. METAB OLIC PANEL (14) sodium 142 mmol/ L 134-14 4 normal Not Available [facility] ([facility]) [address] [facility] [place], [address], 06/17/2024 06:08:10 06/16/20 24 06/16/2024 COMP. METAB OLIC PANEL (14) potassium 4.6 mmol/ L 3.5-5. 2 normal Not Available [facility] ([facility]) [address] [place], [address], 06/17/2024 06:08:10 06/16/20 24 06/16/2024 COMP. METAB OLIC PANEL (14) chloride 104 mmol/ L 96-106 normal Not Available [facility] ([facility]) [address] [place], [address], 06/17/2024 06:08:10 06/16/20 24 06/16/2024 COMP. METAB OLIC PANEL (14) carbon dioxide, total 25 mmol/ L 20-29 normal Not Available [facility] ([facility]) [address] [place] [place], [address], 06/17/2024 06:08:10 06/16/20 24 06/16/2024 COMP. METAB OLIC PANEL (14) calcium 9.2 mg/dL 8.7-10 .3 normal Not Available [facility] ([facility]) [address] [place] [place], [address], 06/17/2024 06:08:10 06/16/20 24 06/16/2024 COMP. METAB OLIC PANEL (14) protein, total 6.8 g/dL 6.0-8. 5 normal Not Available [facility] ([facility]) [address] [facility] [place], [address], 06/17/2024 06:08:10 06/16/20 24 06/16/2024 COMP. METAB OLIC PANEL (14) albumin 4.0 g/dL 3.9-4. 9 normal Not Available [facility] ([facility]) [address] [place], [address], 06/17/2024 06:08:10 06/16/20 24 06/16/2024 COMP. METAB OLIC PANEL (14) globulin, total 2.8 g/dL 1.5-4. 5 Not Available [facility] ([facility]) [address] [facility], [place], [address], 06/17/2024 06:08:10 06/16/20 24 06/16/2024 COMP. METAB OLIC PANEL (14) bilirubin, total 0.3 mg/dL 0.0-1. 2 normal Not Available [facility] ([facility]) [address] [place], [address], 06/17/2024 06:08:10 06/16/20 24 06/16/2024 COMP. METAB OLIC PANEL (14) alkaline phosphatase 76 IU/L 44-121 normal Not Available [facility]) [address] [place] [place], [address], 06/17/2024 06:08:10 06/16/20 24 06/16/2024 COMP. METAB OLIC PANEL (14) AST (SGOT) 16 IU/L 0-40 normal Not Available [facility] ([facility]) [address] [facility], [place], [address], 06/17/2024 06:08:10 06/16/20 24 06/16/2024 COMP. METAB OLIC PANEL (14) ALT (SGPT) 17 IU/L 0-32 normal Not Available [facility] ([facility]) [address] [place], [address], 06/17/2024 06:08:10 06/16/20 24 06/17/2024 LIPID PANEL cholesterol, total 203 mg/dL 100-19 9 above high normal Not Available [facility] ([facility]) [address] [facility], [place], [address], 06/17/2024 06:08:11 06/16/20 24 06/17/2024 LIPID PANEL triglyceride s 132 mg/dL 0-149 normal Not Available [facility] ([facility]) [address] [place], [address], 06/17/2024 06:08:11 06/16/20 24 06/17/2024 LIPID PANEL HDL cholesterol 51 mg/dL >39 normal Not Available [facility]) [address] [facility], [place], [address], 06/17/2024 06:08:11 06/16/20 24 06/17/2024 LIPID PANEL VLDL cholesterol seth 24 mg/dL 5-40 Not Available [facility] ([facility]) [address] [facility], [place], [address], 06/17/2024 06:08:11 06/16/20 24 06/17/2024 LIPID PANEL LDL chol calc ([facility]) 128 mg/dL 0-99 above high normal Not Available [facility] ([facility]) [address] [place], [address], 06/17/2024 06:08:11 06/16/20 24 06/17/2024 LIPID PANEL LDL calc comment: PHOTO PRODUCER Not Available [facility] ([facility]) [address] [place], [address], 06/17/2024 06:08:11 07/01/19 25 07/01/2024 MAMMO , scree gio, digit al, bilat eral No observ ation record ed. [email or web address] Not Available 2024 10:12:14 Result Notes None recorded. Problems Name Problem SNOMED Code Status Onset Date Resolution Date Notes Provider Name and Address Organization Details Recorded Time Anxiety 83487908 Active Shandra baker [place] [facility] 3 13:08:46 Atypical chest pain 611791507 Active Shandra Jean null, [place] [facility] 13:09:02 Binge eating disorder 327897329 Active Shandra Jean null, [place] [facility] 13:09:11 Cyst of breast 114909383 Active Shandra Jean null, [place] [facility] 3 13:09:22 Renal impairment 109692420 Active Shandra Jean null, [place] [facility] 3 13:09:36 Dissection of coronary artery 466635840 Active Shandra Jean null, [place] [facility] 3 13:09:45 Depressive disorder 74865890 Active Shandra Jean null, [place] [facility] 3 13:09:53 Dyspnea at rest 755476335 Active Shandra Jean null, [place] [facility] 13:10:04 Gastroesop hageal reflux disease 167053942 Active Shandra Jean null, [place] [facility] 13:10:27 Impaired fasting glycemia 034882648 Active Shandra Jean null, [place] [facility] 3 13:10:32 Insomnia 688127012 Active Shandra Jean null, [place] [facility] 13:10:41 Lateral epicondyli tis 727227834 Active Shandra Jean null, [place] [facility] 3 13:10:50 Medial epicondyli tis 69501761 Active Shandra Jean null, [place] [facility] 3 13:10:58 Myocardial infarction 85337755 Active NSTEMI (non-ST elevated myocardial infarction ) Shandra Jean null, [place] [facility] 3 13:11:32 Obesity 859243753 Active Shandra Jean null, [place] [facility] 3 13:11:45 Posttrauma tic stress disorder 44565806 Active Shandra Jean null, [place] [facility] 3 13:11:52 Atrophic vaginitis 78170447 Active Shandra Jean null, [place] [facility] 13:12:24 Vaginal pain 48199549 Active Shandra baker, [place] [facility] 13:12:34 Chronic kidney disease stage 3A 609367642 Active 2024 SONALI DUENAS PA-C [address] [facility], [facility] [address], [place], [address], [place] [facility] 5 15:43:31 Chronic back pain 864719768 Active 2024 SONALI DUENAS PA-C [address] [facility], [facility] [address], [place], [address], [place] [facility] 5 15:43:35 Notes:ASCUS,Fibroids,Microhe maturia,Tubal ligation, Problem Notes None recorded. Procedures Surgical History Date Name Laterality Status Provider Name and Address Organization Details Recorded Time 3 Most Recent Mammogram completed SONALI DUENAS PA-C [address] [place] [address], [facility] [address], [place], [address], [place] [facility] 06/19/2023 10:48:16 2 Date of Last Pap Smear completed Shandra Pena [place] [facility] 03/27/2023 13:14:02 9 Date of Last Colonoscopy completed Shandra Pena [place] [facility] 03/27/2023 13:15:00 9 Colonoscopy completed Shandra Jean [place] [facility] 03/27/2023 13:15:05 Imaging Results Imaging Date Name Status LastModified by Organiz ation Details LastModified Time 07/01/2024 MAMMO, screening, digital, bilateral completed [email or web address] Information not available 07/01/2024 10:12:14 Procedure Notes [...] Available omeprazole 40 mg capsule,del ayed release Take 1 capsule every day by oral route. 2024 active Not Available Not Available Not Avai lable aspirin 81 mg tablet,armando yed release TAKE [...] Available estradiol 0.01% (0.1 mg/gram) vaginal cream APPLY 1 GRAM VAGINALLY AT BEDTIME FOR TWO WEEKS THEN TWICE WEEKLY active Not Available Not Available No t Available hydroxyzine HCl 10 mg tablet TAKE [...] Last Updated DateTime 152.4 cm 50.1 kg/m2 394626. 75 g 97 % 97 % 52 /min 128 mm[Hg] 72 mm[Hg] Shandra Pena [facility] 4 13:44:33 Date Recorded Heart rate Systolic blood pressure Diastolic blood pressure Provider Name and Address Organization Details Last Updated DateTime 10/06/2023 62 /min 132 mm[Hg] 75 mm[Hg] Not Available [facility] 10/06/2023 13:32:04 Date Recorded Heart rate Systolic blood pressure Diastolic blood pressure Provider Name and Address Organization Details Last Updated DateTime 10/07/2023 52 /min 128 mm[Hg] 68 mm[Hg] Not Available [facility] 10/07/2023 15:06:03 Date Recorded Heart rate Systolic blood pressure Diastolic blood pressure Provider Name and Address Organization Details Last Updated DateTime 10/09/2023 51 /min 132 mm[Hg] 68 mm[Hg] Not Available [facility] 10/09/2023 15:14:05 Date Recorded Heart rate Systolic [...] mm[Hg] 134 mm[Hg] 64 mm[Hg] Not Available [facility] 10:18:04 Date Recorded Body height Body mass index (BMI) Body weight Oxygen saturation Oxygen saturation in Arterial blood by Pulse oximetry Heart rate Systolic blood pressure Diastolic blood pressure Provider Name and Address Organization Details Last Updated DateTime 4 152.4 cm 48.3 kg/m2 298625. 12 g 97 % 97 % 54 /min 122 mm[Hg] 80 mm[Hg] [facility] [place] [facility] 4 11:03:20 Date Recorded Heart rate Systolic blood pressure Diastolic blood pressure Provider Name and Address Organization Details Last Updated DateTime 10/17/2023 55 /min 123 mm[Hg] 64 mm[Hg] Not Available [facility] 10/17/2023 14:46:05 Date Recorded Heart rate Systolic blood pressure Diastolic blood pressure Provider Name and Address Organization Details Last Updated DateTime 10/18/2023 65 /min 126 mm[Hg] 65 mm[Hg] Not Available [facility] 10/18/2023 13:55:05 Date Recorded Heart rate Systolic blood pressure Diastolic blood pressure Provider Name and Address Organization Details Last Updated DateTime 10/19/2023 53 /min 140 mm[Hg] 68 mm[Hg] Not [facility] 10/19/2023 16:45:07 Date Recorded Heart rate Systolic blood pressure Diastolic blood pressure Provider Name and Address Organization Details Last Updated DateTime 10/21/2023 56 /min 119 mm[Hg] 57 mm[Hg] Not Available [facility] 10/21/2023 12:53:01 Date Recorded Heart rate Systolic blood pressure Diastolic blood pressure Provider Name and Address Organization Details Last Updated DateTime 10/23/2023 55 /min 139 mm[Hg] 68 mm[Hg] Not Available [facility] 10/23/2023 15:29:06 Date Recorded Heart rate Systolic blood pressure Diastolic blood pressure Provider Name and Address Organization Details Last Updated DateTime 11/08/2023 48 /min 136 mm[Hg] 62 mm[Hg] Not Available [facility] 11/08/2023 10:13:03 Date Recorded Heart rate Systolic blood pressure Diastolic blood pressure Provider Name and Address Organization Details Last Updated DateTime 11/10/2023 53 /min 127 mm[Hg] 66 mm[Hg] Not Available [facility] 11/10/2023 10:59:01 Date Recorded Heart rate Systolic blood pressure Diastolic blood pressure Provider Name and Address Organization Details Last Updated DateTime 11/11/2023 54 /min 127 mm[Hg] 77 mm[Hg] Not [facility] 11/11/2023 10:51:01 Date Recorded Heart rate Systolic blood pressure Diastolic blood pressure Provider Name and Address Organization Details Last Updated DateTime 11/13/2023 55 /min 137 mm[Hg] 72 mm[Hg] Not [facility] 11/13/2023 10:10:04 Date Recorded Heart rate Systolic blood pressure Diastolic blood pressure Provider Name and Address Organization Details Last Updated DateTime 11/14/2023 52 /min 133 mm[Hg] 59 mm[Hg] Not [facility] 11/14/2023 06:27:03 Date Recorded Heart rate Systolic blood pressure Diastolic blood pressure Provider Name and Address Organization Details Last Updated DateTime 11/15/2023 62 /min 118 mm[Hg] 71 mm[Hg] Not Available [facility] 11/15/2023 09:53:02 Date Recorded Heart rate Systolic blood pressure Diastolic blood pressure Provider Name and Address Organization Details Last Updated DateTime 11/16/2023 57 /min 138 mm[Hg] 71 mm[Hg] Not Available [facility] 11/16/2023 12:25:05 Date Recorded Heart rate Systolic blood pressure Diastolic blood pressure Provider Name and Address Organization Details Last Updated DateTime 11/18/2023 52 /min 120 mm[Hg] 65 mm[Hg] Not Available [facility] 11/18/2023 11:15:08 Date Recorded Heart rate Systolic blood pressure Diastolic blood pressure Provider Name and Address Organization Details Last Updated DateTime 11/24/2023 71 /min 131 mm[Hg] 65 mm[Hg] Not Available [facility] 11/24/2023 11:48:06 Date Recorded Heart rate Systolic blood pressure Diastolic blood pressure Provider Name and Address Organization Details Last Updated DateTime 11/25/2023 52 /min 120 mm[Hg] 65 mm[Hg] Not Available [facility] 11/25/2023 09:21:07 Date Recorded Heart rate Systolic blood pressure Diastolic blood pressure Provider Name and Address Organization Details Last Updated DateTime 11/26/2023 55 /min 125 mm[Hg] 55 mm[Hg] Not [facility] 11/26/2023 09:17:04 Date Recorded Heart rate Heart rate Systolic blood pressure Diastolic blood pressure Systolic blood pressure Diastolic blood pressure Provider Name and Address Organization Details Last Updated DateTime 53 /min 69 /min 123 mm[Hg] 62 mm[Hg] 148 mm[Hg] 112 mm[Hg] Not Available [facility] 10:52:09 Date Recorded Heart rate Systolic blood pressure Diastolic blood pressure Provider Name and Address Organization Details Last Updated DateTime 11/28/2023 58 /min 137 mm[Hg] 63 mm[Hg] Not Available [facility] 11/28/2023 11:26:09 Date Recorded Heart rate Systolic blood pressure Diastolic blood pressure Provider Name and Address Organization Details Last Updated DateTime 11/29/2023 55 /min 141 mm[Hg] 65 mm[Hg] Not Available [facility] 11/29/2023 11:40:03 Date Recorded Heart rate Systolic blood pressure Diastolic blood pressure Provider Name and Address Organization Details Last Updated DateTime 11/30/2023 55 /min 120 mm[Hg] 54 mm[Hg] Not Available [facility] 11/30/2023 09:28:02 Date Recorded Heart rate Systolic blood pressure Diastolic blood pressure Provider Name and Address Organization Details Last Updated DateTime 12/01/2023 58 /min 143 mm[Hg] 69 mm[Hg] Not Available [facility] 12/01/2023 12:03:03 Date Recorded Heart rate Systolic blood pressure Diastolic blood pressure Provider Name and Address Organization Details Last Updated DateTime 12/02/2023 55 /min 119 mm[Hg] 67 mm[Hg] Not Available [facility] 12/02/2023 10:59:05 Date Recorded Heart rate Heart rate Systolic blood pressure Diastolic blood pressure Systolic blood pressure Diastolic blood pressure Provider Name and Address Organization Details Last Updated DateTime 59 /min 56 /min 148 mm[Hg] 74 mm[Hg] 138 mm[Hg] 74 mm[Hg] Not Available [facility] 12:48:06 Date Recorded Heart rate Systolic blood pressure Diastolic blood pressure Provider Name and Address Organization Details Last Updated DateTime 12/09/2023 53 /min 132 mm[Hg] 67 mm[Hg] Not Available [facility] 12/09/2023 15:29:02 Date Recorded Heart rate Systolic blood pressure Diastolic blood pressure Provider Name and Address Organization Details Last Updated DateTime 12/11/2023 55 /min 135 mm[Hg] 55 mm[Hg] Not Available [facility] 12/11/2023 12:57:01 Date Recorded Heart rate Systolic blood pressure Diastolic blood pressure Provider Name and Address Organization Details Last Updated DateTime 12/13/2023 57 /min 145 mm[Hg] 68 mm[Hg] Not Available [facility] 12/13/2023 09:20:03 Date Recorded Heart rate Systolic blood pressure Diastolic blood pressure Provider Name and Address Organization Details Last Updated DateTime 12/14/2023 55 /min 135 mm[Hg] 68 mm[Hg] Not Available [facility] 12/14/2023 12:17:06 Date Recorded Heart rate Systolic blood pressure Diastolic blood pressure Provider Name and Address Organization Details Last Updated DateTime 12/15/2023 51 /min 148 mm[Hg] 74 mm[Hg] Not Available [facility] 12/15/2023 09:11:03 Date Recorded Heart rate Systolic blood pressure Diastolic blood pressure Provider Name and Address Organization Details Last Updated DateTime 12/17/2023 55 /min 106 mm[Hg] 72 mm[Hg] Not Available [facility] 12/17/2023 10:33:05 Date Recorded Heart rate Systolic blood pressure Diastolic blood pressure Provider Name and Address Organization Details Last Updated DateTime 12/18/2023 58 /min 127 mm[Hg] 54 mm[Hg] Not Available [facility] 12/18/2023 16:17:05 Date Recorded Heart rate Systolic blood pressure Diastolic blood pressure Provider Name and Address Organization Details Last Updated DateTime 12/19/2023 70 /min 146 mm[Hg] 85 mm[Hg] Not Available [facility] 12/19/2023 09:35:07 Date Recorded Heart rate Systolic blood pressure Diastolic blood pressure Provider Name and Address Organization Details Last Updated DateTime 02/10/2024 51 /min 128 mm[Hg] 69 mm[Hg] Not Available [facility] 02/10/2024 12:09:02 Date Recorded Heart rate Systolic blood pressure Diastolic blood pressure Provider Name and Address Organization Details Last Updated DateTime 02/19/2024 52 /min 152 mm[Hg] 73 mm[Hg] Not Available [facility] 02/19/2024 11:46:06 Date Recorded Body height Body mass index (BMI) Body weight Oxygen saturation Oxygen saturation in Arterial blood by Pulse oximetry Heart rate Systolic blood pressure Diastolic blood pressure Provider Name and Address Organization Details Last Updated DateTime 152.4 cm 48 kg/m2 066937. 72 g 98 % 98 % 54 /min 148 mm[Hg] 94 mm[Hg] [facility]10 Date Recorded Heart rate Systolic blood pressure Diastolic blood pressure Provider Name and Address Organization Details Last Updated DateTime 02/27/2024 55 /min 152 mm[Hg] 78 mm[Hg] Not Available [facility] 02/27/2024 12:26:07 Date Recorded Heart rate Systolic blood pressure Diastolic blood pressure Provider Name and Address Organization Details Last Updated DateTime 02/29/2024 58 /min 136 mm[Hg] 63 mm[Hg] Not Available [facility] 02/29/2024 16:15:04 Date Recorded Heart rate Systolic blood pressure Diastolic blood pressure Provider Name and Address Organization Details Last Updated DateTime 03/29/2024 52 /min 144 mm[Hg] 76 mm[Hg] Not Available [facility] 03/29/2024 10:49:02 Date Recorded Heart rate Systolic blood pressure Diastolic blood pressure Provider Name and Address Organization Details Last Updated DateTime 03/26/2024 69 /min 115 mm[Hg] 69 mm[Hg] Not Available [facility] 03/29/2024 10:49:04 Date Recorded Heart rate Systolic blood pressure Diastolic blood pressure Provider Name and Address Organization Details Last Updated DateTime 03/31/2024 61 /min 141 mm[Hg] 77 mm[Hg] Not Available [facility] 03/31/2024 11:56:06 Date Recorded Body height Oxygen saturation Oxygen saturation in Arterial blood by Pulse oximetry Heart rate Systolic blood pressure Diastolic blood pressure Provider Name and Address Organization Details Last Updated DateTime 4 152.4 cm 97 % 97 % 74 /min 132 mm[Hg] 76 mm[Hg] Shandra Pena [facility] 4 15:41:45 Date Recorded Body height Body mass index (BMI) Body weight Oxygen saturation Oxygen saturation in Arterial blood by Pulse oximetry Heart rate Systolic blood pressure Diastolic blood pressure Provider Name and Address Organization Details Last Updated DateTime 5 152.4 cm 49.2 kg/m2 309824. 28 g 96 % 96 % 56 /min 122 mm[Hg] 86 mm[Hg] May Saenz carla [facility] 5 15:43:31 Date Recorded Heart rate Systolic blood pressure Diastolic blood pressure Provider Name and Address Organization Details Last Updated DateTime 09/10/2024 57 /min 147 mm[Hg] 70 mm[Hg] Not Available [facility] 09/10/2024 01:54:34 Social History Question Answer Notes LastModified by Organizat ion Details LastModified Time Tobacco Smoking Status Former Smoker May Vazquez [facility] 10/17/2023 11:01:18 What Is Your Level Of Alcohol Consumption? 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 17+[email or web address] Information not available 10/17/2023 What Was The Date Of Your Most Recent Tobacco Screening? 10/17/2023 [email or web address] Information not available 10/29/2023 Sex: Female Functional [...] Recorded Time zoster recombinant 2 completed May Burlingham null, [place] [facility] 10/17/2023 10:56:35 zoster recombinant 0 completed May [place] [facility] 10/17/2023 10:56:35 zoster recombinant 3 completed May [place] [facility] 10/17/2023 10:56:35 COVID-19, mRNA, LNP-S, PF, 100 mcg/0.5mL dose or 50 mcg/0.25mL dose 1 completed May Burling[place], [place] [facility] 10/17/2023 10:56:35 COVID-19, mRNA, LNP-S, PF, 100 mcg/0.5mL dose or 50 mcg/0.25mL dose 1 completed May Bur[place]ham [place], [place] [facility] 10/17/2023 10:56:35 COVID-19, mRNA, LNP-S, PF, 100 mcg/0.5mL dose or 50 mcg/0.25mL dose 1 completed May Burlingham [place], [place] [facility] 10/17/2023 10:56:35 Pneumococcal conjugate PCV20, polysaccharide LUC613 conjugate, adjuvant, PF 3 completed May [place] [facility] 10/17/2023 10:56:35 COVID-19, mRNA, LNP-S, bivalent, PF, 50 mcg/0.5 mL or 25mcg/0.25 mL dose 3 completed Mayvazquez Samuelham [place], [place] [facility] 10/17/2023 10:56:35 COVID-19, mRNA, LNP-S, PF, viviane-sucrose, 30 mcg/0.3 mL 3 completed May [place] null, [place] [facility] 10/17/2023 10:56:35 Td (adult), 2 Lf tetanus toxoid, preservative free, adsorbed 6 completed May [place] [facility] 10/17/2023 10:56:35 Influenza, split virus, quadrivalent, PF 0 completed May [place] [facility] 10/17/2023 10:56:35 Influenza, split virus, quadrivalent, PF 3 completed May [place] [facility] 10/17/2023 10:56:35 Influenza, split virus, quadrivalent, PF 1 completed May [place] [facility] 10/17/2023 10:56:35 Influenza, split virus, quadrivalent, PF 2 completed May [place] [facility] 10/17/2023 10:56:35 Past Encounters Encounter ID Performer Location Encounter Start Date Encounter Closed Date Diagnosis/Indication Diagnosis SNOMED-CT Code Diagnosis ICD10 Code Diagnosis Note [id number] SONALI DUENAS PA-C Main Office [address] [place] [address],[address] [place] [address] 07/03/2023 14:42:35 07/03/2023 15:32:24 Binge eating disorder 765655914 F50.81 History of binge eating disorder. Not deemed a candidate for weight loss surgery. Additional history of anxiety and depression x 13 years. Follows with a therapist, although she is hoping to transition to a therapist who specialize s in eating disorders; has reached out to 3 providers through psychology [employer] Screening for cardiovascular system disease 380229779 Z13.6 Diabetes m ellitus screening 417822849 Z13.1 History of myocardial infarction 228118235 I25.2 History of NSTEMI on 12/23/20. Followed/m anaged by Dr. Mcmanus ([facility]). Gastroesop hageal reflux disease 843868799 K21.9 Stable. Previously managed on PPI therapy. Now maintained on Acid-Eeze. Insomnia 086309197 F51.0 9 Stable. Maintains on melatonin 20mg, gabapentin , and hydroxyzin e. Mixed anxi ety and depressive disorder 600554891 F41.8 See above Patient ne w to provider [id number] 14561 Z76.89 Here to establish care. Up to date on recommende d health screenings . Will obtain labs prior to next visit. [id number] SONALI UDENAS PA-C Main Office [address] [facility],[address] [place] [address] 08/14/2023 13:36:52 08/14/2023 14:20:49 Chronic kidney disease stage 3A 296148798 N18.31 Creatinine 1.3, stable with consistent results when compared to CIS. Patient reports elevated creatinine since mid 20s, previously seen by a nephrologi st. Has never obtained imaging of such. Recommende d renal ultrasound to rule out anatomic/h ereditary abnormalit ies, given abnormal creatinine since young adulthood. Patient declines at this time, but may consider in the future. Myocardial infarction 22 417123 I21.9 History of myocardial infarction secondary to coronary artery dissection . Given history of NSTEMI, statin therapy recommende d. LDL is above goal (<100). Patient declines starting medication at this time, prefers to manage initially with diet. Will plan to recheck in 6 months. May also consider coronary CT, which patient declines at this time. Chronic back pain 046724 002 G89.29 Persistent low back pain, worsened by sedentary lifestyle. Request refills of medication s as below. Discussed increasing physical activity, such as utilizing walk with [facility] program. Binge eating disorder 43 7374145 F50.81 History of binge eating disorder. Not deemed a candidate for weight loss surgery. Additional history of anxiety and depression x 13 years. Has an upcoming intake with a therapist/ registered dietitian who specialize s in this area. [id number] SONALI DUENAS PA-C Main Office [address] [facility],[address] [place] [address] 10/17/2023 10:55:02 10/17/2023 11:56:27 Active or passive immunization 130409596 Z23 Up to date on recommende d imms (including Shingles and Tdap). Adult heal th examination 075448165 Z00.00 Up to date on recommende d USPTF health maintenanc e.Blood pressure well-contr olled at 122/80. Myocardial infarction 22 590099 I21.9 History of NSTEMI secondary to coronary [...] to exercise regularly. Gastroesop hageal reflux disease 575482733 K21.9 Previously managed on PPI therapy, now maintained on Acid-Eeze. Reports worsening GERD sx. Agreeable to PPI therapy at this time. Reviewed endoscopy results from 09/2018. Obesity 149994758 E66.9 8 Minutes spent on intensive obesity [...] if needed by the patient. Depressive disorder 1010 5219 F32.A Resources offered for behavioral health counseling , although declined. Currently under increased stress at home. May reach out if she would like counseling referrals. Chronic ki dney disease stage 3A 779019713 N18.31 Creatinine 1.3, stable with consistent results when compared to CIS. Patient reports elevated creatinine since mid 20s, previously seen by a nephrologi st. Has never obtained imaging of such. Recommende d renal ultrasound to rule out anatomic/h ereditary abnormalit ies, given abnormal creatinine since young adulthood. Patient declines at this time, but may consider in the future. Chronic back pain 387540 002 G89.29 Persistent low back pain, worsened by sedentary lifestyle. Maintained on gabapentin and cyclobenza shakila as needed. Discussed increasing physical activity, such as utilizing walk with [facility] program. Binge eating disorder 43 0233601 F50.81 History of binge eating disorder. Not deemed a candidate for weight loss surgery, despite 2 prior attempts. Additional history of anxiety and depression x 13 years. Recommende d to engaged with a therapist/ registered nutritioni st who specialize s in this area. Resources offered, although declined at this time. Insomnia 713957526 F51.0 9 Stable. Maintains on melatonin 20mg, gabapentin , and hydroxyzin e. [id number] SONALI DUENAS PA-C Main Office [address] [facility],[address] [place] [address] 02/24/2024 10:20:43 02/24/2024 11:01:34 Myocardial infarction 61425901 I21.9 History of NSTEMI secondary to coronary [...] to exercise regularly. Gastroesop hageal reflux disease 422934962 K21.9 Maintained on omeprazole 40 mg po daily Binge eating disorder 43 5116053 F50.81 History of binge eating disorder. Not deemed a candidate for weight loss surgery, despite 2 prior attempts. Additional history of anxiety and depression x 13 years. Recommende d to engaged with a therapist/ registered nutritioni st who specialize s in this area. Resources offered, although declined at previous visit. Depressive disorder 6277 4444 F32.A Medication provider: Jennifer Christina. Resources offered for behavioral health counseling , although declined. Currently under increased stress at home. May reach out if she would like counseling referrals. Chronic ki dney disease stage 3A 605041251 N18.31 Creatinine 1.3, stable with consistent results [...] testing at this time. Chronic back pain 585775 002 G89.29 Persistent , intermitte nt low [...] future flare-ups. which patient agrees with. Insomnia 799921308 F51.0 9 Stable. Maintains on melatonin 20mg, gabapentin , and hydroxyzin e. Constipation 45472171 K5 9.00 Reports recent constipati on after [...] provided in detail. Normal grief reaction 27 0765471 F43.20 Recently lost daughter within last 1-2 months. Feels well supported by family. Denies any additional resources at this time, but aware that she may reach out to request at any time. [id number] JENNIFER SAWYER Main Office [address] [facility],[address] [place] [address] 05/10/2024 15:35:36 05/10/2024 16:12:19 Dysuria 64212715 R30.0 Awaiting swab, urine dip with RBC's [...] but no other topicals. Will refer to RECORDING STUDIO INTERN for further evaluation Microscopic hematuria 19 3635223 R31.29 will refer to urogyn since patient has microscopi c hematuria 3+ [id number] SONALI DUENAS PA-C Main Office [address] [facility],[address] [place] [address] 07/09/2024 15:36:42 07/09/2024 16:28:02 Chronic back pain 227728200 G89.29 Persistent , intermitte nt low back [...] which patient agrees with. Myocardial infarction 22 293573 I21.9 History of NSTEMI secondary to coronary [...] regularly. Chronic ki dney disease stage 3A 469807887 N18.31 Creatinine 1.24, stable with consistent results [...] continue to monitor. Binge eating disorder 43 7905656 F50.819 External hemorrhoids 239 72186 K64.4 Experienci ng daily discomfort secondary to external hemorrhoid . Declines pyhysical examinatio n. Agreeable to colorectal referral for future management . Obesity 385713919 E66.9 8 Minutes spent on intensive obesity [...] at annual exam Diabetes m ellitus screening 004631059 Z13.1 Screening for cardiovascular system disease 590916333 Z13.6 Thyroid di sorder screening 438245867 Z13.29 Health Concerns Section Related Observation LastModified by Organization Detai ls LastModified Time None Recorded Concern Status LastModified by Organization Details LastModified Time None Recorded Advance Directives Directive None Recorded Payers Encounter Date Sequence Insurance Name Policy Number Policy Ordoñez Covered Member ID Ordoñez Member ID Guarantor Name 08/14/2023 1 [place] [employer] [place] D Shelby [id number] [place] 08/14/2023 1 [place] [id number] Soco Shelby [id number] [place] 10/17/2023 1 [place] [place] Soco D Shelby [id number] [place] 10/17/2023 1 [place] [id number] Soco Shelby [id number] Soco [place] 02/24/2024 1 [place] [employer] Soco D Shelby [id number] Soco [place] 02/24/2024 1 [place] [id number] Soco Shelby [id number] [place]o [place] 05/10/2024 1 [place] [employer] Soco D Shelby [id number] [place]o [place] 05/10/2024 1 [place] [id number] Soco Shelby [id number] Soco [place] 07/09/2024 1 [place]MEDICARE [place]ACEMENT PPO) [id number] Soco Todd [id number] Soco Perez Notes Date Note Type Note Provider Name [...] clothing at this time. SONALI DUENAS PA-C [address] [place] [address], [phone], [facility] 08/14/2023 21:27:14 10/17/2023 text/html Annual WellnessReported [...] tetanus and shingles immunizations SONALI DUENAS PA-C [address] [place] [address] [address], [address], [facility] 10/29/2023 13:19:31 02/24/2024 text/html Chief complaint [...] No numbness or tingling. SONALI DUENAS PA-C [address] [facility] [address], [place], [address], [facility] 02/26/2024 09:19:06 05/10/2024 text/html perineal area an d rectum feel warm X one yeardenies vaginal dischargePAP 2022 [facility], record unavailable and unable to find her [facility] systemColonoscopy within 2 years, no polyps per patientTried tea tree ointmentDesitin ointmentlubricant stick on buttocks seemed to help ramos butter combination to perineal areaHas seen urology long time ago for microscopic hematuria, she is unsure of outcome JENNIFER SAWYER [address] [facility] [address], [place], [address], [facility] 05/10/2024 16:17:24 07/09/2024 text/html Roslyn Todd, [...] not been sick recently. SONALI DUENAS PA-C [address] [place] [address], [place], [address], [facility] 07/12/2024 06:06:10 OBGyn Episode No OBEpisode recorded.
--- OUTSIDE RECORDS SUMMARY | 2024-10-04 15:44 | XMS_ITS | Encounter Summary ---
Author Organization [employer] Address [address] [place] [address] Care Team Providers Care Drywall Applicator Name Role Phone Megha Arroyo Unavailable Jairo Patel DDS Unavailable [phone] Encounter Details Date Type Department Care Team (Late Contact Info) Description 04/16/2023 Orders Only [facility] [address] [place] [phone] Ryan Hamlin DDS [address] [place] [address] [phone] Social History Tobacco Use Types Packs/Day Years [...] Description 10/28/2024 9:45 AM EDT Office Visit [facility] [address] [place] [phone] Darlene Zabala documented as of this encounter Visit Diagnoses Not on filedocumented in this encounter Care Teams Drywall Applicator Relationship Specialty Start Date End Date Megha Arroyo [address] [place] [address] Dental Sole Polisher 10/21/23 Jairo Patel DDS [address] [place] [address] Dentist 10/21/23 documented as of this encounter
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
== END 2024-10-04 13:17 | disposition home or self-care (01) ==
LOC: HO.HOP 13:16
PROVIDERS: PCP Family Medicine; Visit Provider Clinical Nurse Specialist Psychiatric/Mental Health
DX: F43.10 Post-traumatic stress disorder, unspecified (principal); F33.1 Major depressive disorder, recurrent, moderate; F43.20 Adjustment disorder, unspecified; Z63.4 Disappearance and death of family member
CPT/HCPCS: 99214

== ENCOUNTER 2024-11-01 13:39 | Outpatient (AMB) | payer MEDICARE, SELFPAY ==
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
--- OUTSIDE RECORDS SUMMARY | 2024-11-01 15:08 | XMS_ITS | Data Portability ---
Author Organization [facility], [employer] Address [address] [place] [phone] Assessment Encounter Date Assessment Date Assessment LastModified [...] diagnostic testing or treatment (one needed): . [email or web address] Not available 08/14/2023 21:22:00 10/17/2023 10/17/2023 The patient was advised to continue a healthy diet and exercise regularly. Preventative care discussed in detail. Eight minutes spent on each counselling about depression, alcohol, obesity, and cardiovascular health. Further preventative care counselling discussed as documented below. [email or web address] Not available 10/29/2023 13:18:02 02/24/2024 02/24/2024 Appointments - Follow-up appointment in 6 to 8 weeks, labs prior The following time was spent on todays E/M encounter, including preparing for the visit, reviewing results, seeing the patient, and documentation on the date of service of the encounter: 40 mins [email or web address] Not available 02/26/2024 09:12:22 05/10/2024 05/10/2024 The following time was spent on todays E/M encounter, including preparing for the visit, reviewing results, seeing the patient, and documentation on the date of service of the encounter: 30 [id number] 15-29 minutes 92613 30-44 minutes 28942 45-59 minutes 83429 60-74 minutes 81179 10-19 minutes 33032 20-29 minutes 98186 30-39 minutes 81239 40-54 minutes [email or web address] Not available 05/10/2024 16:16:12 07/09/2024 07/09/2024 Assessment [...] of service of the encounter: 45 mins [email or web address] Not available 07/12/2024 06:04:41 Plan of Treatment Reminders Order Date Submit Date Provider Last Modified By Organization Details Last Modified Time Details Appointments Annual Exam 2024 01:40P M SONALI DUENAS PA-C Not available Not available Not available Lab lipid panel, serum 2024 025 [facility], [address] [place], [address], 07/12/2024 06:06:14 TSH, ultra-s ensitiv e, serum 2024 025 [facility], [address], [place], [address], 07/12/2024 06:06:14 CBC 2024 025 [facility], [address], [place], [address], 07/12/2024 06:06:14 HbA1c (hemogl obin A1c), blood 2024 025 [facility], [address], [place], [address], 07/12/2024 06:06:13 vaginal pathoge ns panel, PRITI+pro be, vaginal fluid 2023 024 [facility], [address], [place], [address], 05/12/2024 14:06:53 urinaly sis, dipstic k 2023 024 [place] [address] Main Office, [address] [place] [address], [address], [place], [address], 05/10/2024 16:18:50 CMP, serum or plasma 2023 024 [facility], [address], [place], [address], 06/17/2024 06:08:10 lipid panel, serum 2023 024 [facility], [address], [place], [address], 06/17/2024 06:08:11 lipid panel, serum 2023 024 [facility] (Centralized Electronic Ordering - All Locations), Patient Can Go To The Location Of Their Choice, [id number] 01/12/2024 03:03:50 Referral colon & rectal surgeon referra l 2024 025 [email or web address] [facility] Colorectal Surgery Scheduling Dept, [address] [place], [address], 09/03/2024 13:49:17 gynecol ogist referra l 2023 024 [email or web address] Not available 06/01/2024 09:02:25 Procedures None recorde d. Surgeries None recorde d. Imaging None recorde d. Medication Orders Senna Plus 8.6 mg-50 mg capsule 2023 024 [facility], [address] [place], [address], 02/26/2024 09:01:34 omepraz ole 40 mg capsule ,delaye d release 2023 024 [facility], [address] [place], [address], 10/29/2023 13:17:59 cyclobe nzaprin e 10 mg tablet 2023 024 [facility], [address] [place], [address], 08/14/2023 21:26:53 gabapen tin 300 mg capsule 2023 024 [facility], [address] [place], [address], 10/17/2023 10:59:57 Patient TargetsNo targets recorded. Patient Instructions Encounter Date Encounter Id Patient Instructions Last Modified By Organization Details Last Modified Time 02/24/2024 [id number] back pain: care instructions Not available 02/24/2024 10:49:58 low back pain: exercises [email or web address] Not available 02/24/2024 10:49:58 back care and preventing injuries: care instructions [email or web address] Not available 02/24/2024 10:49:58 Reason for Referral Independent Living Specialist Referral for Dy suria Referring Physician: Amelia [...] of Clini seth and Appli ed [facility] [place] and Educa tion Volum e 43, Suppl [...] 08/12/1908/12/2023 COMPR EHENS EDDIE METAB OLIC PANL albumin [...] Go To The Location Of Their Choice, [id number] 08/12/2023 15:01:26 08/12/19 24 08/12/2023 LIPID PANEL LDL cholesterol, calculated 133 mg/dL (0-130 ) high Not Available [facility] (Centralized Electronic Ordering - All Locations) Patient Can Go To The Location Of Their Choice, [id number] 08/12/2023 15:01:26 08/12/19 24 08/12/2023 LIPID PANEL non HDL cholesterol (calc) 164 mg/dL (<160) high Not Available [facility] ([facility] Ordering - All Locations) Patient Can Go To The Location Of Their Choice, [id number] 08/12/2023 15:01:26 05/10/20 24 05/11/2024 NUSWA B VAGIN ITIS PLUS (VG+) atopobium vaginae Low - 0 score Not Available [facility] ([facility]) [address] [place], [address], 05/12/2024 14:06:53 05/10/2005/11/2024 NUA B VAGIN ITIS PLUS (VG+) bvab 2 Low - 0 score Not Available [facility] ([facility] [address] [place], [address], 05/12/2024 14:06:53 05/10/2005/11/2024 NUSWA B VAGIN ITIS [...] prese nce of BV. Not Available [facility] ([facility]) [address] [facility], [place], [address], 05/12/2024 14:06:53 05/10/20 24 05/11/2024 NUSWA B VAGIN ITIS PLUS (VG+) shannan albicans, PRITI Negati ve negati ve Not Available [facility] ([facility]) [address] [facility], [place], [address], 05/12/2024 14:06:53 05/10/20 24 05/11/2024 NUSWA B VAGIN ITIS PLUS (VG+) shannan glabrata, PRITI Negati ve negati ve Not Available [facility] ([facility]) [address] [facility], [place], [address], 05/12/2024 14:06:53 05/10/2005/12/2024 NUA B VAGIN ITIS PLUS (VG+) trich vag by PRITI Negati ve negati ve Not Available [facility] ([facility]) [address] [facility], [place], [address], 05/12/2024 14:06:53 05/10/2005/12/2024 NUSWA B VAGIN ITIS PLUS (VG+) chlamydia trachomatis, PRITI Negati ve negati ve Not Available [facility] ([facility]) [address] [facility], [place], [address], 05/12/2024 14:06:53 05/10/20 24 05/12/2024 NUSWA B VAGIN ITIS PLUS (VG+) neisseria gonorrhoeae, PRITI Negati ve negati ve Not Available [facility] ([facility]) [address] [facility], [place], [address], 05/12/2024 14:06:53 05/10/20 24 05/10/2024 urina lysis , dipst ick Leukocytes negati ve Not Available Main Office [address] [place] [address] [address], [place], [address], 05/10/2024 15:56:33 05/10/20 24 05/10/2024 urina lysis , dipst ick Nitrite negati ve Not Available Main Office [address] [facility] [address], [place], [address], 05/10/2024 15:56:33 05/10/20 24 05/10/2024 urina lysis , dipst ick Urobilinogen negati ve Not Available Main Office [address] [facility] [address], [place], [address], 05/10/2024 15:56:33 05/10/20 24 05/10/2024 urina lysis , dipst ick Protein negati ve Not Available Main Office [address] [facility] [address], [place], [address], 05/10/2024 15:56:33 05/10/20 24 05/10/2024 urina lysis , dipst ick pH 5.5 Not Available Main Offic e [address] [facility] [address], [place], [address], 05/10/2024 15:56:33 05/10/20 24 05/10/2024 urina lysis , dipst ick Blood 3+ Not Available Main Offic e [address] [facility] [address], [place], [address], 05/10/2024 15:56:33 05/10/20 24 05/10/2024 urina lysis , dipst ick Specific [place] 1.020 Not Available Main O ffice [address] [facility] [address], [place], [address], 05/10/2024 15:56:33 05/10/20 24 05/10/2024 urina lysis , dipst ick Ketone negati ve Not Available Main Office [address] [facility] [address], [place], [address], 05/10/2024 15:56:33 05/10/20 24 05/10/2024 urina lysis , dipst ick Bilirubin negati ve Not Available Main Office [address] [facility] [address], [place], [address], 05/10/2024 15:56:33 05/10/20 24 05/10/2024 urina lysis , dipst ick Glucose negati ve Not Available Main Office [address] [facility] [address], [place], [address], 05/10/2024 15:56:33 06/16/20 24 06/16/2024 COMP. METAB OLIC PANEL (14) glucose 92 mg/dL 70-99 normal Not Available [facility] ([facility] [address] [place], [address], 06/17/2024 06:08:10 06/16/20 24 06/16/2024 COMP. METAB OLIC PANEL (14) BUN 22 mg/dL 8-27 normal Not Available [facility] ([facility] [address] [place], [address], 06/17/2024 06:08:10 06/16/20 24 06/16/2024 COMP. METAB OLIC PANEL (14) creatinine 1.24 mg/dL 0.57-1 .00 above high normal Not Available [facility] ([facility]) [address] [place], [address], 06/17/2024 06:08:10 06/16/20 24 06/16/2024 COMP. METAB OLIC PANEL (14) eGFR 49 mL/mi n/1.7 3 >59 below low normal Not Available [facility] ([facility]) [address] [place], [address], 06/17/2024 06:08:10 06/16/20 24 06/16/2024 COMP. METAB OLIC PANEL (14) BUN/creatini ne ratio 18 12-28 normal Not Available [facility] [address] [place], [address], 06/17/2024 06:08:10 06/16/20 24 06/16/2024 COMP. METAB OLIC PANEL (14) sodium 142 mmol/ L 134-14 4 normal Not Available [facility] ([facility]) [address] [facility] [place], [address], 06/17/2024 06:08:10 06/16/20 24 06/16/2024 COMP. METAB OLIC PANEL (14) potassium 4.6 mmol/ L 3.5-5. 2 normal Not Available [facility] ([facility]) [address] [place], [address], 06/17/2024 06:08:10 06/16/20 24 06/16/2024 COMP. METAB OLIC PANEL (14) chloride 104 mmol/ L 96-106 normal Not Available [facility] ([facility]) [address] [facility] [place], [address], 06/17/2024 06:08:10 06/16/20 24 06/16/2024 COMP. METAB OLIC PANEL (14) carbon dioxide, total 25 mmol/ L 20-29 normal Not Available [facility] ([facility]) [address] [facility] [place], [address], 06/17/2024 06:08:10 06/16/20 24 06/16/2024 COMP. METAB OLIC PANEL (14) calcium 9.2 mg/dL 8.7-10 .3 normal Not Available [facility] ([facility]) [address] [facility] [place], [address], 06/17/2024 06:08:10 06/16/20 24 06/16/2024 COMP. METAB OLIC PANEL (14) protein, total 6.8 g/dL 6.0-8. 5 normal Not Available [facility] ([facility]) [address] [facility] [place], [address], 06/17/2024 06:08:10 06/16/20 24 06/16/2024 COMP. METAB OLIC PANEL (14) albumin 4.0 g/dL 3.9-4. 9 normal Not Available [facility] ([facility]) [address] [facility] [place], [address], 06/17/2024 06:08:10 06/16/20 24 06/16/2024 COMP. METAB OLIC PANEL (14) globulin, total 2.8 g/dL 1.5-4. 5 Not Available [facility] ([facility]) [address] [facility], [place], [address], 06/17/2024 06:08:10 06/16/20 24 06/16/2024 COMP. METAB OLIC PANEL (14) bilirubin, total 0.3 mg/dL 0.0-1. 2 normal Not Available [facility] ([facility]) [address] [facility] [place], [address], 06/17/2024 06:08:10 06/16/20 24 06/16/2024 COMP. METAB OLIC PANEL (14) alkaline phosphatase 76 IU/L 44-121 normal Not Available [facility] [address] [place], [address], 06/17/2024 06:08:10 06/16/20 24 06/16/2024 COMP. METAB OLIC PANEL (14) AST (SGOT) 16 IU/L 0-40 normal Not Available [facility] ([facility]) [address] [place], [address], 06/17/2024 06:08:10 06/16/20 24 06/16/2024 COMP. METAB OLIC PANEL (14) ALT (SGPT) 17 IU/L 0-32 normal Not Available [facility] ([facility]) [address] [place], [address], 06/17/2024 06:08:10 06/16/20 24 06/17/2024 LIPID PANEL cholesterol, total 203 mg/dL 100-19 9 above high normal Not Available [facility] ([facility]) [address] [place], [address], 06/17/2024 06:08:11 06/16/20 24 06/17/2024 LIPID PANEL triglyceride s 132 mg/dL 0-149 normal Not Available [facility] [address] [place], [address], 06/17/2024 06:08:11 06/16/20 24 06/17/2024 LIPID PANEL HDL cholesterol 51 mg/dL >39 normal Not Available [facility] [address] [place], [address], 06/17/2024 06:08:11 06/16/20 24 06/17/2024 LIPID PANEL VLDL cholesterol seth 24 mg/dL 5-40 Not Available [facility] [address] [place], [address], 06/17/2024 06:08:11 06/16/20 24 06/17/2024 LIPID PANEL LDL chol calc ([facility]) 128 mg/dL 0-99 above high normal Not Available [facility] ([facility] [address] [place], [address], 06/17/2024 06:08:11 06/16/20 24 06/17/2024 LIPID PANEL 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 Not Available 2024 10:12:14 Result Notes None recorded. Problems Name Problem SNOMED Code Status Onset Date Resolution Date Notes Provider Name and Address Organization Details Recorded Time Anxiety 36414804 Active Shandra baker [place] [facility] 3 13:08:46 Atypical chest pain 741778417 Active Shandra Jean null, [place] [facility] 13:09:02 Binge eating disorder 343643966 Active Shandra Jean null, [place] [facility] 3 13:09:11 Cyst of breast 122840442 Active Shandra Jean null, [place] [facility] 3 13:09:22 Renal impairment 089269827 Active Shandra Jean null, [place] [facility] 3 13:09:36 Dissection of coronary artery 339138852 Active Shandra Jean null, [place] [facility] 3 13:09:45 Depressive disorder 19505936 Active Shandra Jean null, [place] [facility] 3 13:09:53 Dyspnea at rest 161556531 Active Shandra Jean null, [place] [facility] 13:10:04 Gastroesop hageal reflux disease 446468362 Active Shandra Jean null, [place] [facility] 3 13:10:27 Impaired fasting glycemia 282214868 Active Shandra Jean null, [place] [facility] 3 13:10:32 Insomnia 949541560 Active Shandra Jean null, [place] [facility] 13:10:41 Lateral epicondyli tis 738586093 Active Shandra Jean null, [place] [facility] 13:10:50 Medial epicondyli tis 06618856 Active Shandra Jean null, [place] [facility] 3 13:10:58 Myocardial infarction 98722734 Active NSTEMI (non-ST elevated myocardial infarction ) Shandra Jean null, [place] [facility] 13:11:32 Obesity 336870933 Active Shandra Jean null, [place] [facility] 3 13:11:45 Posttrauma tic stress disorder 14194953 Active Shandra Jean null, [place] [facility] 3 13:11:52 Atrophic vaginitis 91690618 Active Shandra Jean null, [place] [facility] 3 13:12:24 Vaginal pain 24315692 Active Shandra baker, [place] [facility] 13:12:34 Chronic kidney disease stage 3A 411704290 Active 2024 SONALI DUENAS PA-C [address] [facility], [facility] [address], [place], [address], [place] [facility] 5 15:43:31 Chronic back pain 240437960 Active 2024 SONALI DUENAS PA-C [address] [facility], [facility] [address], [facility] [place], [address], [place] [facility] 5 15:43:35 Notes:ASCUS,Fibroids,Microhe maturia,Tubal ligation, Problem Notes None recorded. Procedures Surgical History Date Name Laterality Status Provider Name and Address Organization Details Recorded Time 3 Most Recent Mammogram completed SONALI DUENAS PA-C [address] [place] [address], [facility] [address], [place], [address], [place] [facility] 06/19/2023 10:48:16 2 Date of Last Pap Smear completed Shandra Pena [place] [facility] 03/27/2023 13:14:02 9 Date of Last Colonoscopy completed Shandra Pena [place] [facility] 03/27/2023 13:15:00 9 Colonoscopy completed Shandra Pena [place] [facility] 03/27/2023 13:15:05 Imaging Results Imaging Date Name Status LastModified by Organiz ation Details LastModified Time 07/01/2024 MAMMO, screening, digital, bilateral completed [email or web address] Information not available 07/01/2024 10:12:14 Procedure Notes [...] Last Updated DateTime 152.4 cm 50.1 kg/m2 067047. 75 g 97 % 97 % 52 /min 128 mm[Hg] 72 mm[Hg] Shandra Pena [facility] 4 13:44:33 Date Recorded Heart rate Systolic blood pressure Diastolic blood pressure Provider Name and Address Organization Details Last Updated DateTime 10/06/2023 62 /min 132 mm[Hg] 75 mm[Hg] Not Available [facility] 10/06/2023 13:32:04 Date Recorded Heart rate Systolic blood pressure Diastolic blood pressure Provider Name and Address Organization Details Last Updated DateTime 10/07/2023 52 /min 128 mm[Hg] 68 mm[Hg] Not Available [facility] 10/07/2023 15:06:03 Date Recorded Heart rate Systolic [...] Last Updated DateTime 152.4 cm 48.3 kg/m2 047133. 12 g 97 % 97 % 54 /min 122 mm[Hg] 80 mm[Hg] [facility] [place] [facility] 11:03:20 Date Recorded Heart rate Systolic blood pressure Diastolic blood pressure Provider Name and Address Organization Details Last Updated DateTime 10/17/2023 55 /min 123 mm[Hg] 64 mm[Hg] Not Available [facility] 10/17/2023 14:46:05 Date Recorded Heart rate Systolic blood pressure Diastolic blood pressure Provider Name and Address Organization Details Last Updated DateTime 10/18/2023 65 /min 126 mm[Hg] 65 mm[Hg] Not Available [facility] 10/18/2023 13:55:05 Date Recorded Heart rate Systolic blood pressure Diastolic blood pressure Provider Name and Address Organization Details Last Updated DateTime 10/19/2023 53 /min 140 mm[Hg] 68 mm[Hg] Not Available [facility] 10/19/2023 16:45:07 Date Recorded Heart rate Systolic [...] /min 127 mm[Hg] 66 mm[Hg] Not Available [facility] 11/10/2023 10:59:01 Date Recorded Heart rate Systolic blood pressure Diastolic blood pressure Provider Name and Address Organization Details Last Updated DateTime 11/11/2023 54 /min 127 mm[Hg] 77 mm[Hg] Not Available [facility] 11/11/2023 10:51:01 Date Recorded Heart rate Systolic blood pressure Diastolic blood pressure Provider Name and Address Organization Details Last Updated DateTime 11/13/2023 55 /min 137 mm[Hg] 72 mm[Hg] Not Available [facility] 11/13/2023 10:10:04 Date Recorded Heart rate Systolic blood pressure Diastolic blood pressure Provider Name and Address Organization Details Last Updated DateTime 11/14/2023 52 /min 133 mm[Hg] 59 mm[Hg] Not Available [facility] 11/14/2023 06:27:03 Date Recorded Heart rate Systolic blood pressure Diastolic blood pressure Provider Name and Address Organization Details Last Updated DateTime 11/15/2023 62 /min 118 mm[Hg] 71 mm[Hg] Not Available [facility] 11/15/2023 09:53:02 Date Recorded Heart rate Systolic blood pressure Diastolic blood pressure Provider Name and Address Organization Details Last Updated DateTime 11/16/2023 57 /min 138 mm[Hg] 71 mm[Hg] Not Available [facility] 11/16/2023 12:25:05 Date Recorded Heart rate Systolic [...] /min 125 mm[Hg] 55 mm[Hg] Not Available [facility] 11/26/2023 09:17:04 Date Recorded Heart rate Heart rate Systolic blood pressure Diastolic blood pressure Systolic blood pressure Diastolic blood pressure Provider Name and Address Organization Details Last Updated DateTime 53 /min 69 /min 123 mm[Hg] 62 mm[Hg] 148 mm[Hg] 112 mm[Hg] Not Available [facility] 10:52:09 Date Recorded Heart rate Systolic blood pressure Diastolic blood pressure Provider Name and Address Organization Details Last Updated DateTime 11/28/2023 58 /min 137 mm[Hg] 63 mm[Hg] Not Available [facility] 11/28/2023 11:26:09 Date Recorded Heart rate Systolic blood pressure Diastolic blood pressure Provider Name and Address Organization Details Last Updated DateTime 11/29/2023 55 /min 141 mm[Hg] 65 mm[Hg] Not Available [facility] 11/29/2023 11:40:03 Date Recorded Heart rate Systolic blood pressure Diastolic blood pressure Provider Name and Address Organization Details Last Updated DateTime 11/30/2023 55 /min 120 mm[Hg] 54 mm[Hg] Not Available [facility] 11/30/2023 09:28:02 Date Recorded Heart rate Systolic blood pressure Diastolic blood pressure Provider Name and Address Organization Details Last Updated DateTime 12/01/2023 58 /min 143 mm[Hg] 69 mm[Hg] Not Available [facility] 12/01/2023 12:03:03 Date Recorded Heart rate Systolic blood pressure Diastolic blood pressure Provider Name and Address Organization Details Last Updated DateTime 12/02/2023 55 /min 119 mm[Hg] 67 mm[Hg] Not Available [facility] 12/02/2023 10:59:05 Date Recorded Heart rate Heart rate Systolic blood pressure Diastolic blood pressure Systolic blood pressure Diastolic blood pressure Provider Name and Address Organization Details Last Updated DateTime 59 /min 56 /min 148 mm[Hg] 74 mm[Hg] 138 mm[Hg] 74 mm[Hg] Not Available [facility] 12:48:06 Date Recorded Heart rate Systolic blood pressure Diastolic blood pressure Provider Name and Address Organization Details Last Updated DateTime 12/09/2023 53 /min 132 mm[Hg] 67 mm[Hg] Not Available [facility] 12/09/2023 15:29:02 Date Recorded Heart rate Systolic blood pressure Diastolic blood pressure Provider Name and Address Organization Details Last Updated DateTime 12/11/2023 55 /min 135 mm[Hg] 55 mm[Hg] Not Available [facility] 12/11/2023 12:57:01 Date Recorded Heart rate Systolic blood pressure Diastolic blood pressure Provider Name and Address Organization Details Last Updated DateTime 12/13/2023 57 /min 145 mm[Hg] 68 mm[Hg] Not Available [facility] 12/13/2023 09:20:03 Date Recorded Heart rate Systolic blood pressure Diastolic blood pressure Provider Name and Address Organization Details Last Updated DateTime 12/14/2023 55 /min 135 mm[Hg] 68 mm[Hg] Not Available [facility] 12/14/2023 12:17:06 Date Recorded Heart rate Systolic blood pressure Diastolic blood pressure Provider Name and Address Organization Details Last Updated DateTime 12/15/2023 51 /min 148 mm[Hg] 74 mm[Hg] Not Available [facility] 12/15/2023 09:11:03 Date Recorded Heart rate Systolic [...] Last Updated DateTime 152.4 cm 48 kg/m2 794680. 72 g 98 % 98 % 54 /min 148 mm[Hg] 94 mm[Hg] [facility]10 Date Recorded Heart rate Systolic blood [...] 144 mm[Hg] 76 mm[Hg] Not Available [facility] 03/29/2024 10:49:02 Date Recorded Heart rate Systolic blood pressure Diastolic blood pressure Provider Name and Address Organization Details Last Updated DateTime 03/26/2024 69 /min 115 mm[Hg] 69 mm[Hg] Not Available [facility] 03/29/2024 10:49:04 Date Recorded Heart rate Systolic blood pressure Diastolic blood pressure Provider Name and Address Organization Details Last Updated DateTime 03/31/2024 61 /min 141 mm[Hg] 77 mm[Hg] Not Available [facility] 03/31/2024 11:56:06 Date Recorded Body height Oxygen saturation Oxygen saturation in Arterial blood by Pulse oximetry Heart rate Systolic blood pressure Diastolic blood pressure Provider Name and Address Organization Details Last Updated DateTime 4 152.4 cm 97 % 97 % 74 /min 132 mm[Hg] 76 mm[Hg] Shandra Pena [facility] 4 15:41:45 Date Recorded Body height Body mass index (BMI) Body weight Oxygen saturation Oxygen saturation in Arterial blood by Pulse oximetry Heart rate Systolic blood pressure Diastolic blood pressure Provider Name and Address Organization Details Last Updated DateTime 5 152.4 cm 49.2 kg/m2 610998. 28 g 96 % 96 % 56 /min 122 mm[Hg] 86 mm[Hg] May aguirre [facility] 5 15:43:31 Date Recorded Heart rate Systolic blood pressure Diastolic blood pressure Provider Name and Address Organization Details Last Updated DateTime 09/10/2024 57 /min 147 mm[Hg] 70 mm[Hg] Not Available [facility] 09/10/2024 01:54:34 Social History Question Answer Notes LastModified by Organizat ion Details LastModified Time Tobacco Smoking Status Former Smoker May Vazquez [facility] 10/17/2023 11:01:18 What Is Your Level Of Alcohol Consumption? 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 16+[facility] Information not available 10/17/2023 What Was The Date Of Your Most Recent Tobacco Screening? 10/17/2023 [email or web address] Information not available 10/29/2023 Sex: Female Functional [...] Primary 10/17/2023 10:56:35 zoster recombinant 3 completed Mayvazquez Samuelveronica null, [place] [facility] 10/17/2023 10:56:35 COVID-19, mRNA, LNP-S, PF, 100 mcg/0.5mL dose or 50 mcg/0.25mL dose 1 completed May Samuel[place] null, [place] [facility] 10/17/2023 10:56:35 COVID-19, mRNA, LNP-S, PF, 100 mcg/0.5mL dose or 50 mcg/0.25mL dose 1 completed May Lizz[place]ham null[place] [facility] 10/17/2023 10:56:35 COVID-19, mRNA, LNP-S, PF, 100 mcg/0.5mL dose or 50 mcg/0.25mL dose 1 completed May [place] [facility] 10/17/2023 10:56:35 Pneumococcal conjugate PCV20, polysaccharide PUD630 conjugate, adjuvant, PF 3 completed May [place] [facility] 10/17/2023 10:56:35 COVID-19, mRNA, LNP-S, bivalent, PF, 50 mcg/0.5 mL or 25mcg/0.25 mL dose 3 completed [facility] [facility] 10/17/2023 10:56:35 [...] Influenza, split virus, quadrivalent, PF 1 completed Amy [place] [facility] 10/17/2023 10:56:35 Influenza, split virus, quadrivalent, PF 2 completed May [place] [facility] 10/17/2023 10:56:35 Past Encounters Encounter ID Performer Location Encounter Start Date Encounter Closed Date Diagnosis/Indication Diagnosis SNOMED-CT Code Diagnosis ICD10 Code Diagnosis Note [id number] SONALI DUENAS PA-C Main Office [address] [place] [address],[address] [place] [address] 07/03/2023 14:42:35 07/03/2023 15:32:24 Binge eating disorder 462104068 F50.81 History of binge eating disorder. Not deemed a candidate for weight loss surgery. Additional history of anxiety and depression x 13 years. Follows with a therapist, although she is hoping to transition to a therapist who specialize s in eating disorders; has reached out to 3 providers through psychology [email or web address] Screening for cardiovascular system disease 065902682 Z13.6 Diabetes m ellitus screening 303145274 Z13.1 History of myocardial infarction 396329261 I25.2 History of NSTEMI on 12/23/20. Followed/m anaged by Dr. Mcmanus ([facility]). Gastroesop hageal reflux disease 460465935 K21.9 Stable. Previously managed on PPI therapy. Now maintained on Acid-Eeze. Insomnia 510981628 F51.0 9 Stable. Maintains on melatonin 20mg, gabapentin , and hydroxyzin e. Mixed anxi ety and depressive disorder 737550469 F41.8 See above Patient ne w to provider [id number] 58446 Z76.89 Here to establish care. Up to date on recommende d health screenings . Will obtain labs prior to next visit. [id number] SONALI DUENAS PA-C Main Office [address] [facility],[address] [place] [address] 08/14/2023 13:36:52 08/14/2023 14:20:49 Chronic kidney disease stage 3A 311536891 N18.31 Creatinine 1.3, stable with consistent results when compared to CIS. Patient reports elevated creatinine since mid 20s, previously seen by a nephrologi st. Has never obtained imaging of such. Recommende d renal ultrasound to rule out anatomic/h ereditary abnormalit ies, given abnormal creatinine since young adulthood. Patient declines at this time, but may consider in the future. Myocardial infarction 22 380870 I21.9 History of myocardial infarction secondary to coronary artery dissection . Given history of NSTEMI, statin therapy recommende d. LDL is above goal (<100). Patient declines starting medication at this time, prefers to manage initially with diet. Will plan to recheck in 6 months. May also consider coronary CT, which patient declines at this time. Chronic back pain 515065 002 G89.29 Persistent low back pain, worsened by sedentary lifestyle. Request refills of medication s as below. Discussed increasing physical activity, such as utilizing walk with Caitie program. Binge eating disorder 43 7472716 F50.81 History of binge eating disorder. Not deemed a candidate for weight loss surgery. Additional history of anxiety and depression x 13 years. Has an upcoming intake with a therapist/ registered dietitian who specialize s in this area. [id number] SONALI DUENAS PA-C Main Office [address] [facility],[address] [place] [address] 10/17/2023 10:55:02 10/17/2023 11:56:27 Active or passive immunization 708574653 Z23 Up to date on recommende d imms (including Shingles and Tdap). Adult heal th examination 226032140 Z00.00 Up to date on recommende d USPTF health maintenanc e.Blood pressure well-contr olled at 122/80. Myocardial infarction 22 337654 I21.9 History of NSTEMI secondary to coronary artery dissection . Followed/m anaged by [facility] (reviewed note from 07/03/2023). Continues on ASA and metoprolol . Given history of NSTEMI, statin therapy recommende d. LDL is above goal (<100). Patient declines starting medication at this time, prefers to manage initially with diet. Repeat lipid panel ordered for 12/2023. May also consider coronary CT, which patient declines at this time. Encouraged to exercise regularly. Gastroesop hageal reflux disease 299593505 K21.9 Previously managed on PPI therapy, now maintained on Acid-Eeze. Reports worsening GERD sx. Agreeable to PPI therapy at this time. Reviewed endoscopy results from 09/2018. Obesity 432516999 E66.9 8 Minutes spent on intensive obesity [...] if needed by the patient. Depressive disorder 3359 0075 F32.A Resources offered for behavioral health counseling , although declined. Currently under increased stress at home. May reach out if she would like counseling referrals. Chronic ki dney disease stage 3A 830430276 N18.31 Creatinine 1.3, stable with consistent results when compared to CIS. Patient reports elevated creatinine since mid 20s, previously seen by a nephrologi st. Has never obtained imaging of such. Recommende d renal ultrasound to rule out anatomic/h ereditary abnormalit ies, given abnormal creatinine since young adulthood. Patient declines at this time, but may consider in the future. Chronic back pain 650963 002 G89.29 Persistent low back pain, worsened by sedentary lifestyle. Maintained on gabapentin and cyclobenza shakila as needed. Discussed increasing physical activity, such as utilizing walk with Caitie program. Binge eating disorder 43 8371584 F50.81 History of binge eating disorder. Not deemed a candidate for weight loss surgery, despite 2 prior attempts. Additional history of anxiety and depression x 13 years. Recommende d to engaged with a therapist/ registered nutritioni st who specialize s in this area. Resources offered, although declined at this time. Insomnia 999533112 F51.0 9 Stable. Maintains on melatonin 20mg, gabapentin , and hydroxyzin e. [id number] SONALI DUENAS PA-C Main Office [address] [facility],[address] [place], [place] [address] 02/24/2024 10:20:43 02/24/2024 11:01:34 Myocardial infarction 67138631 I21.9 History of NSTEMI secondary to coronary artery dissection . Followed/m anaged by [facility] (reviewed note from 07/03/2023). Continues [...] to exercise regularly. Gastroesop hageal reflux disease 738378235 K21.9 Maintained on omeprazole 40 mg po daily Binge eating disorder 43 5849462 F50.81 History of binge eating disorder. Not deemed a candidate for weight loss surgery, despite 2 prior attempts. Additional history of anxiety and depression x 13 years. Recommende d to engaged with a therapist/ registered nutritioni st who specialize s in this area. Resources offered, although declined at previous visit. Depressive disorder 9685 3981 F32.A Medication provider: Jennifer Christina. Resources offered for behavioral health counseling , although declined. Currently under increased stress at home. May reach out if she would like counseling referrals. Chronic ki dney disease stage 3A 721295567 N18.31 Creatinine 1.3, stable with consistent results [...] testing at this time. Chronic back pain 975391 002 G89.29 Persistent , intermitte nt low [...] future flare-ups. which patient agrees with. Insomnia 936918838 F51.0 9 Stable. Maintains on melatonin 20mg, gabapentin , and hydroxyzin e. Constipation 24298415 K5 9.00 Reports recent constipati on after [...] provided in detail. Normal grief reaction 27 5128070 F43.20 Recently lost daughter within last 1-2 months. Feels well supported by family. Denies any additional resources at this time, but aware that she may reach out to request at any time. [id number] JENNIFER SAWYER Main Office [address] [facility],[address] [place] [address] 05/10/2024 15:35:36 05/10/2024 16:12:19 Dysuria 93201374 R30.0 Awaiting swab, urine dip with RBC's [...] but no other topicals. Will refer to MIXER CRANE OPERATOR for further evaluation Microscopic hematuria 19 7377363 R31.29 will refer to urogyn since patient has microscopi c hematuria 3+ [id number] SONALI DUENAS PA-C Main Office [address] [facility],[address] [place] [address] 07/09/2024 15:36:42 07/09/2024 16:28:02 Chronic back pain 518845488 G89.29 Persistent , intermitte nt low back [...] which patient agrees with. Myocardial infarction 22 956834 I21.9 History of NSTEMI secondary to coronary artery dissection . Followed/m anaged by [facility] (reviewed note from 07/03/2023). Continues [...] regularly. Chronic ki dney disease stage 3A 522445570 N18.31 Creatinine 1.24, stable with consistent results [...] continue to monitor. Binge eating disorder 43 1761570 F50.819 External hemorrhoids 239 76350 K64.4 Experienci ng daily discomfort secondary to external hemorrhoid . Declines pyhysical examinatio n. Agreeable to colorectal referral for future management . Obesity 472030377 E66.9 8 Minutes spent on intensive obesity [...] at annual exam Diabetes m ellitus screening 432784001 Z13.1 Screening for cardiovascular system disease 148454540 Z13.6 Thyroid di sorder screening 097684762 Z13.29 Health Concerns Section Related Observation LastModified by Organization Detai ls LastModified Time None Recorded Concern Status LastModified by Organization Details LastModified Time None Recorded Advance Directives Directive None Recorded Payers Encounter Date Sequence Insurance Name Policy Number Policy Ordoñez Covered Member ID Ordoñez Member ID Guarantor Name 08/14/2023 1 [place] [employer] [id number] [employer] 08/14/2023 1 [place] [id number] [employer] [place] [id number] [employer] [place] 10/17/2023 1 [place] [employer] [id number] [employer] [place] 10/17/2023 1 [place] [id number] [employer] [id number] [employer] [place] 02/24/2024 1 [place] [employer] [id number] [employer] [place] 02/24/2024 1 [place] [id number] [employer] [id number] [employer] [place] 05/10/2024 1 [place] [employer] [id number] [employer] [place] 05/10/2024 1 [place] [id number] [employer] [id number] [employer] [place] 07/09/2024 1 [facility] (MEDICARE REPLACEMENT PPO) [id number] [employer] [id number] [employer] [place] Notes Date Note Type [...] clothing at this time. SONALI DUENAS PA-C [address] [place] [address], [phone], [facility] 08/14/2023 21:27:14 10/17/2023 text/html [...] tetanus and shingles immunizations SONALI DUENAS PA-C [address] [place] [address], [place], [address], [facility] 10/29/2023 13:19:31 02/24/2024 text/html [...] numbness or tingling. SONALI DUENAS PA-C [address] [facility] [address], [place], [address], [facility] Primary 02/26/2024 09:19:06 05/10/2024 text/html perineal area an d rectum feel warm X one yeardenies vaginal dischargePAP 2022 at [facility] gynecology [facility], record unavailable and unable to find her [facility] systemColonoscopy within 2 years, no polyps per patientTried tea tree ointmentDesitin ointmentlubricant stick on buttocks seemed to help ramos butter combination to perineal areaHas seen urology long time ago for microscopic hematuria, she is unsure of outcome JENNIFER SAWYER [address] [facility], [facility] [address], [place], [address], [facility] Primary 05/10/2024 16:17:24 07/09/2024 text/html Roslyn Todd, [...] not been sick recently. SONALI DUENAS PA-C [address] [place] [address], [place], [address], [place] [facility] 07/12/2024 06:06:10 OBGyn Episode No OBEpisode recorded.
--- OUTSIDE RECORDS SUMMARY | 2024-11-01 15:08 | XMS_ITS | Encounter Summary ---
Author Organization [employer] Address [address] [facility] 7 [place] [address] Care Team Providers Care Deputy Assessor Name Role Phone Megha Arroyo Unavailable Jairo Patel DDEunice Unavailable [phone] Encounter Details Date Type Department Care Team (Late st Contact Info) Description 10/28/2024 9:45 AM EDT Office Visit [facility] [address] [place] [address] Darlene Zabala Social History Tobacco Use Types Packs/Day Years [...] PM EST documented as of this encounter Last Filed Vital Signs Vital Sign Reading Time Taken Comments Blood Pressure 125/73 10/28/2024 10:13 AM EDT Pulse - - Temperature 36.7 ??C (98 ??F) 10/28/2024 10:13 AM EDT Respiratory Rate - - Oxygen Saturation - - Inhaled Oxygen Concentration - - Weight - - Height - - Body Mass Index - - documented in this encounter Progress Notes * Darlene Zabala - 10/28/2024 9:45 AM EDT [facility]: Asthma, Muscle spasm (back), Anxiety/Depression, Chronic pain, CO 11/2021 (spontaneous dissection of a coronary artery) - see list Meds: Albuterol, Bupropion, DAPT (Aspirin), Buspar, Duloxetene, Gabapentin, Hydroxyzine, Lamotrigene, Ativan prn for dental, Flexeril, Metoprolol. Omeprazole/Prilosec. See additional list Allergies: NKDA No contraindications to treatment Percocet/Tylenol, Amoxicillin acceptable Cannot combine aspirin and any anticoagulant with Ibuprofen Patient notes no surgeries, hospitalizations or new conditions since last visit. SBIRT Today Tob/Alcohol/ORDU: None Marijuana: Daily- smoked PCP: Felicita Diallo [facility] Cardiology: Dr Khalil/Linda Villavicencio [phone] [place], [place] Pt reports not taking plavix any longer. Only 81mg aspirin LAST PE/FMX: 03/11/2023 Dr Patel LAST PRO: 04/27/24 Chief concern- Possible night bruxism. Patient unsure. No nightguard. PREMEDICATION: Premedication not needed. CURRENT HYGIENE ROUTINE: brushing once a day (manual soft) usually in the AM and flossing once a day (string), is flossing under bridge Fluoridated toothpaste - advised sls free due to xerostomia Water- [facility] water unfiltered Tooth sensitivity- sl #30 Bleeding- none to brush or floss. ORAL HYGIENE EVALUATION: Good XEROSTOMIA?: Yes PLAQUE: slight keiko today CALCULUS: slight-interprox natalya ants with sl loc bleeding to scale STAIN: sl interprox CARIES RISK ASSESSMENT: More than 3 large interproximal restorations and/or crown and bridge work, Xerostomia CARIES RISK: Moderate Risk - D0602 PERIODONTAL PROBING: not due at this time HYGIENE PERIODONTAL CLASSIFICATION: Stage II Grade A PERIODONTAL RISK/ CONTRIBUTING FACTORS: HYGIENE RECOMMENDATIONS: avoid sls, utilize xylitol gum PATIENT EDUCATION: importance of regular dental visits OCCLUSION: Anterior crowding/rotation. Incisal wear. Pt unaware of bruxism and does not wear guard.Reports Dr Patel rec a nightgurd at last PE. AREAS OF DENTAL NOTE: Discussed food trapping interprox #29/30. Recc waterpik, pt does not want hygsupplies ORAL CANCER SCREENING: Intraoral and extraoral oral cancer screening done- Negative- no lesions noted. Biopsy on tip of tongue in 2019 was fibroma. Coated tongue. TREATMENT RENDERED: cavitron, hand scaling, marshallese and floss all contacts. FLUORIDE TREATMENT: none Hyg eval - decay and compromised existing crowns noted. RECALL RECOMMENDED: 6 month recall NEXT DENTIST VISIT: SAUMYA/IGNACIA -05/03/[address] Patel. Does not qualify for SFS documented in this encounter Plan of Treatment Upcoming Encounters Date Type Department Care Team (Late st Contact Info) Description 05/03/2025 10:00 AM EST Office Visit [facility] [address] [place] [phone] Catia Jefferson [address] [place] [address] documented as of this encounter Procedures Procedure Name Priority Date/Time Associated Diagnosis Comments PROPHYLAXIS - ADULT Routine 10/28/2024 9 :45 AM EDT BITEWINGS - 4 RADIOGRAPHIC IMAGES Routine 10/28/2024 9:45 AM EDT documented in this encounter Visit Diagnoses Not on filedocumented in this encounter Care Teams Deputy Assessor Relationship Specialty Start Date End Date Megha Arroyo [address] [place] [address] Dental Intensive Care Medicine Specialist 10/21/23 Jairo Patel DDS [address] [place] [address] Dentist 10/21/23 documented as of this encounter
--- OUTSIDE RECORDS SUMMARY | 2024-11-01 15:08 | XMS_ITS | Clinical Summary ---
Author Organization [employer] Address [address] [facility] 7[address] [place] [address] Care Team Providers Care Sql Engineer Name Role Phone Megha Arroyo Unavailable Jairo Patel DDS Unavailable [phone] Allergies Active Allergy Reactions Criticality Noted Date Comments Pollen Extract Other,Cough 10/28/2024 Medications buPROPion XL (Wellbutrin XL) 300 MG [...] breakfast. Do not crush or chew. Active budesonide (Pulmicort Flexhaler) 90 MCG/ACT inhaler 2 puffs in the morning and at bedtime. 2 Active traZODone (Desyrel) 50 MG tablet Take 50 mg by mouth at bedtime. 4 Active aspirin 81 MG EC tablet Take 1 tablet by mouth Once per day. Active buPROPion XL (Wellbutrin XL) 300 MG 24 hr tablet Take 1 tablet by mouth in the morning. Active cyclobenzaprine (Flexeril) 10 MG tablet Take 10 mg by mouth 3 times daily. Active gabapentin (Neurontin) 300 MG capsule Take 2 capsules by mouth 2 times daily. Active lamoTRIgine (LaMICtal) 150 MG tablet Take 1 tablet by mouth Once per day. Active metoprolol tartrate (Lopressor) 25 MG tablet Take 1 tablet by mouth 2 times daily. Active omeprazole (PriLOSEC) [address] capsule Take 40 mg by mouth Once per day. Active Active Problems Problem Noted Date Diagnosed Date Anxiety disorder 10/28/2024 Posttraumatic stress disorder 10/28/2024 Binge eating disorder 10/28/2024 Cyst of breast 10/28/2024 Overview (10/28/2024): Ultrasound 04/16. IMPRESSION: Findings consistent with a degenerating fibroadenoma. A tiny cyst in the right breast. An area of asymmetric markings which did not have an accompanying mass. I would obtain a 6 month mammographic follow-up with a possible ultrasound to reevaluate the asymmetric markings. RECOMMENDATION: Follow-up right mammogram and ultrasound in 6 months right breast Depressive disorder 10/28/2024 Dissection of coronary artery 10/28/2024 Encounter for tubal ligation 10/28/2024 Gastroesophageal reflux disease 10/28/2024 Insomnia 10/28/2024 Lateral epicondylitis 10/28/2024 Medial epicondylitis 10/28/2024 Myocardial infarction 10/28/2024 Overview (10/28/2024): NSTEMI (non-ST elevated myocardial infarction) Microscopic hematuria 10/28/2024 Overview (10/28/2024): 2007 Obesity 10/28/2024 Renal impairment 10/28/2024 Shortness of breath at rest 10/28/2024 Overview (10/28/2024): due to anxiety/ panic disorder Uterine leiomyoma 10/28/2024 Chronic back pain 07/09/2024 Stage 3a chronic kidney disease 07/09/2024 Encounters Date Type Department Care Team Description 10/28/2024 9:45 AM EDT Office Visit [address] [address] Darlene Zaabla from Last 3 Months Social History Tobacco Use Types Packs/Day Years [...] Pressure 125/73 10/28/2024 10:13 AM EDT Pulse 55 04/27/2024 9:57 AM EDT Temperature 36.7 ??C (98 ??F) 10/28/2024 10:13 AM EDT Respiratory Rate - - Oxygen Saturation - - Inhaled Oxygen Concentration - - Weight - - Height - - Body Mass Index - - Plan of Treatment Upcoming Encounters Date Type Department Care Team ([facility] st Contact Info) Description 05/03/2025 10:00 AM EST Office Visit [facility] [address] [place] [address] TammycortneyCatia [address] [place] [address] Health Maintenance Due Date Last Done Comments CT Colonography 1961 Colonoscopy 1961 Colorectal Cancer Screening 1961 Depression Screening 1961 FIT DNA/Cologuard 1961 FIT 1961 FOBT 1961 HIV Screening 1961 Lipid Panel 1961 SDOH Screening 1961 Sigmoidoscopy 1961 Hepatitis C Screening 1979 Pap Smear 1982 Cervical Cancer Screening 1991 HPV/Cotest 1991 Mammogram 2001 Hepatitis B Vaccines (3 of 3 - 19+ 3-dose series) 06/05/2005 01/01/2005, 12/04/2004 RSV Patients and Patients Aged 60 years or older (1 - Risk 60-74 years 1-dose series) 2021 Dental Oral Exam 09/10/2023 03/11/2023, 06/17/2018 Tobacco Screening 04/18/2024 04/18/2023 Dental Prophylaxis 05/01/2025 10/28/2024, 1 , 10/21/2023, Additional history exists Alcohol/Substance Use Screening 10/28/2025 10/28/2024 Dental X-Ray: Bitewings 10/29/2025 10/29/19 25, 03/11/2023, 06/17/2018 Dental X-Ray: Full Mouth 03/12/2026 03/11/2023, 05/30 DTaP/Tdap/Td Vaccines (4 - Td or Tdap) 03/25/2026 03/25/2016, 03/25/2016, 06/08/2008, Additional history exists Zoster Vaccines Completed 04/28/2023, 11/2021, 03/21/2020 COVID-19 Vaccine Completed 07/02/2024, , 07/12/2022, Additional history exists Influenza Vaccine Completed 07/02/2024, , 06/18/2022, Additional history exists Pneumococcal Vaccine: 50+ Years Completed 07/02/2024, 04/28/2023 HIB Vaccines Aged Out No longer eligi [...] Procedure Name Priority Date/Time Associated Diagnosis Comments BITEWINGS - 4 RADIOGRAPHIC IMAGES Routine 10/28/2024 9:45 AM EDT PROPHYLAXIS - ADULT Routine 10/28/2024 9 :45 AM EDT INTRAORAL - COMPLETE SERIES OF RADIOGRAPHIC IMAGES Routine 03/11/2023 4:30 PM EDT PERIODIC ORAL EVALUATION - ESTABLISHED PATIENT Routine 03/11/2023 4:30 PM EDT from Last 3 Months or Most Recently Relevant to Health Maintenance Insurance [facility] MEDEX CARE DENTAL - [facility] [place] Care Teams Sql Engineer Relationship Specialty Start Date End Date Megha Arroyo [address] [place] [address] Dental Income Tax Administrator 10/21/23 Jairo Patel DDS [address] [place] [address] Dentist 10/21/23
--- OUTSIDE RECORDS SUMMARY | 2024-11-01 15:08 | XMS_ITS | Encounter Summary ---
Author Organization [employer] Address [address] [facility] [address] [place] [address] Care Team Providers Care [employer] Name Role Phone ArroyoAbrahamMegha Unavailable Jairo Patel DDS Unavailable Encounter Details Date Type Department Care Team (Late Contact Info) Description 04/16/2023 Orders Only [facility] [address] [place] [phone] Ryan Hamlin DDS [address] [place] [address] Social History Tobacco Use Types Packs/Day Years [...] Encounters Date Type Department Care Team (Late Contact Info) Description 05/03/2025 10:00 AM EST Office Visit [facility] [address] [place] [address] [phone] Catia Jefferson [address] [place] [address] documented as of this encounter Visit Diagnoses Not on filedocumented in this encounter Care Teams [employer] Relationship Specialty Start Date End Date Megha Arroyo [address] [place], [place] [id number] Dental Physician Aide 10/21/23 Jairo Patel DDS [address] [facility] [place] [address] Dentist 10/21/23 documented as of this encounter
== END 2024-11-01 13:39 | disposition home or self-care (01) ==
LOC: HO.HOP 13:39
PROVIDERS: PCP Family Medicine; Visit Provider Clinical Nurse Specialist Psychiatric/Mental Health
DX: F33.1 Major depressive disorder, recurrent, moderate (principal); F43.11 Post-traumatic stress disorder, acute; F43.20 Adjustment disorder, unspecified; Z63.4 Disappearance and death of family member; F50.81 Binge eating disorder
CPT/HCPCS: 99214

== ENCOUNTER 2024-12-13 10:39 | Outpatient (AMB) | payer MEDICARE, SELFPAY ==
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
--- OUTSIDE RECORDS SUMMARY | 2024-12-13 11:58 | XMS_ITS | Data Portability ---
Author Organization [place] [facility], [employer] Address [address] [place] [id number] Assessment Encounter Date Assessment Date Assessment LastModified by Organization Details LastModified Time 10/17/2023 10/17/2023 The patient was advised to continue a healthy diet and exercise regularly. Preventative care discussed in detail. Eight minutes spent on each counselling about depression, alcohol, obesity, and cardiovascular health. Further preventative care counselling discussed as documented below. [email or web address] Not available 10/29/2023 13:18:02 02/24/2024 02/24/2024 Appointments - Follow-up appointment in 6 to 8 weeks, labs prior The following time was spent on todays E/M encounter, including preparing for the visit, reviewing results, seeing the patient, and documentation on the date of service of the encounter: 40 mins [email or web address] Not available 02/26/2024 09:12:22 05/10/2024 05/10/2024 The following time was spent on todays E/M encounter, including preparing for the visit, reviewing results, seeing the patient, and documentation on the date of service of the encounter: 30 10822 15-29 minutes [id number] 30-44 minutes 19517 45-59 minutes 27776 60-74 minutes 41262 10-19 minutes 44318 20-29 minutes 49117 30-39 minutes 19884 40-54 minutes [email or web address] Not available 05/10/2024 16:16:12 07/09/2024 07/09/2024 Assessment - Chronic back pain likely due to muscle strain, although considered ddx of degenerative disc disease, disc bulge/herniation , spinal stenosis. - Binge eating disorder - [...] of service of the encounter: 45 mins [email or web address] Not available 07/12/2024 06:04:41 11/24/2024 11/24/2024 Assessment - Bad viral bronchitis, likely to run its course without the need for antibiotics. - No signs of pneumonia detected. Plan - Prescribe codeine cough syrup for a duration of one week, as it has been helpful in the past to stop the cough tremor. - Continue using the inhaler as needed and maintain supportive care measures to manage symptoms until the viral infection resolves. Prescription - Codeine cough syrup, for a week, as it has been helpful in the past. This visit is being performed by Prachi Parker LPN under the direct supervision of Andrew Buchanan DO and they are physically present in the office and available for immediate consultation. The treatment plan was determined by the supervising provider. [email or web address] Not available 11/24/2024 10:14:03 Plan of Treatment Reminders Order Date Submit Date Provider Last Modified By Organization Details Last Modified Time Details Appointments Annual Exam 2024 03:00P M SONALI DUENAS PA-C Not available Not available Not available Lab lipid panel, serum 2024 025 ALEISHA [facility], [address] [place], [address], 07/12/2024 06:06:14 TSH, ultra-sen sitive, serum 2024 025 ALEISHA [facility], [address], [place], [address], 07/12/2024 06:06:14 CBC 2024 025 [facility], [address] [place], [address], 07/12/2024 06:06:14 HbA1c (hemoglob in A1c), blood 2024 025 MODESTO [facility], [address] [place], [address], 07/12/2024 06:06:13 vaginal pathogens panel, PRITI+probe , vaginal fluid 2023 024 MODESTO [facility], [address], [place], [address], 05/12/2024 14:06:53 urinalysi s, dipstick 2023 024 [email or web address] [address] Main Office, [address] [place] [address], [address], [place], [address], 05/10/2024 16:18:50 CMP, serum or plasma 2023 024 [facility], [address], [place], [address], 06/17/2024 06:08:10 lipid panel, serum 2023 024 [facility], [address], [place], [address], 06/17/2024 06:08:11 Referral colon & rectal surgeon referral [email or web address] [place] [address] Colorectal Surgery Scheduling Dept, [address] [place], [address], 09/03/2024 13:49:17 gynecolog ist referral 2023 024 [email or web address] Not available 06/01/2024 09:02:25 Procedures None recorded. Surgeries None recorded. Imaging None recorded. Medication Orders codeine 10 mg-guaife nesin 100 mg/5 mL oral liquid 2024 025 [facility] [address] [facility] [place], [address], 12/08/2024 05:01:23 Senna Plus 8.6 mg-50 mg capsule 2023 024 MODESTO [facility], [address] [facility] [place], [address], 02/26/2024 09:01:34 omeprazol e 40 mg capsule,d elayed release 2023 024 MODESTO [facility], [address], [address], 10/29/2023 13:17:59 Patient TargetsNo targets recorded. Patient Instructions Encounter Date Encounter Id Patient Instructions Last Modified By Organization Details Last Modified Time 02/24/2024 [id number] back pain: care instructions [email or web address] Not available 02/24/2024 10:49:58 low back pain: exercises [email or web address] Not available 02/24/2024 10:49:58 back care and preventing injuries: care instructions [email or web address] Not available 02/24/2024 10:49:58 11/24/2024 [id number] Based on our discussion, I have outlined the following instructions for you: - Use the codeine cough syrup for one week. It has helped stop your cough in the past. - Keep using your inhaler whenever you need it and continue with any other care measures you are using to feel better until the viral infection goes away. Thank you again for your visit, and we look forward to supporting you in your journey to better health. [email or web address] Not available 11/24/2024 10:11:16 Reason for Referral Athletic Monitor Referral for Dy suria Referring Physician: Amelia Gramajo, Internal Medicine, Encounter Date: 05/10/2024 Colon & Rectal Surgeon Refer ral for External hemorrhoids Referring Physician: Sonali Duenas, Family Medicine, Encounter Date: 07/09/2024 Results Created Date Observation Date Name Description Value Unit Range Abnormal Flag Note LastModifiedBy Organization Detail LastModifiedTime 05/10/2005/11/2024 NUSWA B VAGIN ITIS PLUS (VG+) atopobium vaginae Low - 0 score Not Available [facility] ([facility]) [address] [facility], [place], [address], 05/12/2024 14:06:53 05/10/2005/11/2024 NUSWA B VAGIN ITIS PLUS (VG+) bvab 2 Low - 0 score Not Available [facility] ([facility]) [address] [facility], [place], [address], 05/12/2024 14:06:53 05/10/20 24 05/11/2024 NUA B [...] prese nce of BV. Not Available [facility] ([facility]) [address] [facility], [place], [address], 05/12/2024 14:06:53 05/10/20 24 05/11/2024 NUSWA B VAGIN ITIS PLUS (VG+) shannan albicans, PRITI Negati ve negati ve Not Available [facility] ([facility]) [address] [facility], [place], [address], 05/12/2024 14:06:53 05/10/20 24 05/11/2024 NUSWA B VAGIN ITIS PLUS (VG+) shannan glabrata, PRITI Negati ve negati ve Not Available [facility] ([facility]) [address] [facility], [place], [address], 05/12/2024 14:06:53 05/10/20 24 05/12/2024 NUSWA B VAGIN ITIS PLUS (VG+) trich vag by PRITI Negati ve negati ve Not Available [facility] ([facility]) [address] [facility], [place], [address], 05/12/2024 14:06:53 05/10/20 24 05/12/2024 NUSWA B VAGIN ITIS PLUS (VG+) chlamydia trachomatis, PRITI Negati ve negati ve Not Available [facility] ([facility]) [address] [facility], [place], [address], 05/12/2024 14:06:53 05/10/20 24 05/12/2024 NUSWA B VAGIN ITIS PLUS (VG+) neisseria gonorrhoeae, PRITI Negati ve negati ve Not Available [facility] ([facility]) [address] [facility], [place], [address], 05/12/2024 14:06:53 05/10/20 24 05/10/2024 urina lysis , dipst ick Leukocytes negati ve Not Available Main Office [address], [address], 05/10/2024 15:56:33 05/10/20 24 05/10/2024 urina lysis , dipst ick Nitrite negati ve Not Available Main Office [address], [address], 05/10/2024 15:56:33 05/10/20 24 05/10/2024 urina lysis , dipst ick Urobilinogen negati ve Not Available Main Office [address], [address], 05/10/2024 15:56:33 05/10/20 24 05/10/2024 urina lysis , dipst ick Protein negati ve Not Available Main Office [address] [facility] [address], [place], [address], 05/10/2024 15:56:33 05/10/20 24 05/10/2024 urina lysis , dipst ick pH 5.5 Not Available Main Offic e [address] [facility] [address], [place], [address], 05/10/2024 15:56:33 05/10/20 24 05/10/2024 urina lysis , dipst ick Blood 3+ Not Available Main Offic e [address] [facility] [address], [place], [address], 05/10/2024 15:56:33 05/10/20 24 05/10/2024 urina lysis , dipst ick Specific Simpson 1.020 Not Available Main O ffice [address] [address], [place], [address], 05/10/2024 15:56:33 05/10/20 24 05/10/2024 urina lysis , dipst ick Ketone negati ve Not Available Main Office [address] [facility] [address], [place], [address], 05/10/2024 15:56:33 05/10/20 24 05/10/2024 urina lysis , dipst ick Bilirubin negati ve Not Available Main Office [address] [facility] [address], [place], [address], 05/10/2024 15:56:33 05/10/20 24 05/10/2024 urina lysis , dipst ick Glucose negati ve Not Available Main Office [address] [facility] [address], [place], [address], 05/10/2024 15:56:33 06/16/20 24 06/16/2024 COMP. METAB OLIC PANEL (14) glucose 92 mg/dL 70-99 normal Not Available [facility] ([facility]) [address] [facility], [place], [address], 06/17/2024 06:08:10 06/16/20 24 06/16/2024 COMP. METAB OLIC PANEL (14) BUN 22 mg/dL 8-27 normal Not Available [facility] ([facility]) [address] [facility] [place], [address], 06/17/2024 06:08:10 06/16/20 24 06/16/2024 COMP. METAB OLIC PANEL (14) creatinine 1.24 mg/dL 0.57-1 .00 above high normal Not Available [facility] ([facility]) [address] [facility] [place], [address], 06/17/2024 06:08:10 06/16/20 24 06/16/2024 COMP. METAB OLIC PANEL (14) eGFR 49 mL/mi n/1.7 3 >59 below low normal Not Available [facility] ([facility]) [address] [facility] [place], [address], 06/17/2024 06:08:10 06/16/20 24 06/16/2024 COMP. METAB OLIC PANEL (14) BUN/creatini ne ratio 18 12-28 normal Not Available [facility] ([facility]) [address] [facility], [place], [address], 06/17/2024 06:08:10 06/16/20 24 06/16/2024 COMP. METAB OLIC PANEL (14) sodium 142 mmol/ L 134-14 4 normal Not Available [facility] ([facility]) [address] [facility] [place], [address], 06/17/2024 06:08:10 06/16/20 24 06/16/2024 COMP. METAB OLIC PANEL (14) potassium 4.6 mmol/ L 3.5-5. 2 normal Not Available [facility] ([facility]) [address] [facility] [place], [address], 06/17/2024 06:08:10 06/16/20 24 06/16/2024 COMP. METAB OLIC PANEL (14) chloride 104 mmol/ L 96-106 normal Not Available [facility] ([facility]) [address] [facility] [place], [address], 06/17/2024 06:08:10 06/16/20 24 06/16/2024 COMP. METAB OLIC PANEL (14) carbon dioxide, total 25 mmol/ L 20-29 normal Not Available [facility] ([facility]) [address] [facility], [place], [address], 06/17/2024 06:08:10 06/16/20 24 06/16/2024 COMP. METAB OLIC PANEL (14) calcium 9.2 mg/dL 8.7-10 .3 normal Not Available [facility] ([facility]) [address] [facility] [place], [address], 06/17/2024 06:08:10 06/16/20 24 06/16/2024 COMP. METAB OLIC PANEL (14) protein, total 6.8 g/dL 6.0-8. 5 normal Not Available [facility] ([facility]) [address] [facility] [place], [address], 06/17/2024 06:08:10 06/16/20 24 06/16/2024 COMP. METAB OLIC PANEL (14) albumin 4.0 g/dL 3.9-4. 9 normal Not Available [facility] ([facility]) [address] [facility] [place], [address], 06/17/2024 06:08:10 06/16/20 24 06/16/2024 COMP. METAB OLIC PANEL (14) globulin, total 2.8 g/dL 1.5-4. 5 Not Available [facility] ([facility]) [address] [facility], [place], [address], 06/17/2024 06:08:10 06/16/20 24 06/16/2024 COMP. METAB OLIC PANEL (14) bilirubin, total 0.3 mg/dL 0.0-1. 2 normal Not Available [facility] ([facility]) [address] [facility] [place], [address], 06/17/2024 06:08:10 06/16/20 24 06/16/2024 COMP. METAB OLIC PANEL (14) alkaline phosphatase 76 IU/L 44-121 normal Not Available [facility] [address] [facility] [place], [address], 06/17/2024 06:08:10 06/16/20 24 06/16/2024 COMP. METAB OLIC PANEL (14) AST (SGOT) 16 IU/L 0-40 normal Not Available [facility] ([facility]) [address] [facility] [place], [address], 06/17/2024 06:08:10 06/16/20 24 06/16/2024 COMP. METAB OLIC PANEL (14) ALT (SGPT) 17 IU/L 0-32 normal Not Available [facility] ([facility]) [address] [facility] [place], [address], 06/17/2024 06:08:10 06/16/20 24 06/17/2024 LIPID PANEL cholesterol, total 203 mg/dL 100-19 9 above high normal Not Available [facility] ([facility]) [address] [facility] [place], [address], 06/17/2024 06:08:11 06/16/20 24 06/17/2024 LIPID PANEL triglyceride s 132 mg/dL 0-149 normal Not Available [facility] ([facility]) [address] [facility] [place], [address], 06/17/2024 06:08:11 06/16/20 24 06/17/2024 LIPID PANEL HDL cholesterol 51 mg/dL >39 normal Not Available [facility]) [address] [facility], [place], [address], 06/17/2024 06:08:11 06/16/20 24 06/17/2024 LIPID PANEL VLDL cholesterol seth 24 mg/dL 5-40 Not Available [facility] ([facility]) [address] [facility], [place], [address], 06/17/2024 06:08:11 06/16/20 24 06/17/2024 LIPID PANEL LDL chol calc ([facility]) 128 mg/dL 0-99 above high normal Not Available [facility] ([facility]) [address] [facility], [place], [address], 06/17/2024 06:08:11 06/16/20 24 06/17/2024 LIPID PANEL 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 [email or web address] Not Available 2024 10:12:14 Result Notes None recorded. Problems Name Problem SNOMED Code Status Onset Date Resolution Date Notes Provider Name and Address Organization Details Recorded Time Anxiety 19581364 Active Shandra Jean null, [place] [facility] 13:08:46 Atypical chest pain 058314055 Active Shandra Jean null, [place] [facility] 13:09:02 Binge eating disorder 338258349 Active Shandra Jean null, [place] [facility] 13:09:11 Cyst of breast 526481998 Active Shandra Jean null, [place] [facility] 13:09:22 Renal impairment 534965199 Active Shandra Jean null, [place] [facility] 13:09:36 Dissection of coronary artery 875681361 Active Shandra Jean null, [place] [facility] 13:09:45 Depressive disorder 07776564 Active Shandra Jean null, [place] [facility] 13:09:53 Dyspnea at rest 803519489 Active Shandra Jean null, [place] [facility] 13:10:04 Gastroesop hageal reflux disease 839273827 Active Shandra Jean null, [place] [facility] 13:10:27 Impaired fasting glycemia 858964858 Active Shandra Jean null, [place] [facility] 13:10:32 Insomnia 973977348 Active Shandra Jean null, [place] [facility] 13:10:41 Lateral epicondyli tis 022022005 Active Shandra Jean null, [place] [facility] 13:10:50 Medial epicondyli tis 29402535 Active Shandra Jean null, [place] [facility] 13:10:58 Myocardial infarction 54579144 Active NSTEMI (non-ST elevated myocardial infarction ) Shandra Jean null, [place] [facility] 13:11:32 Obesity 881071956 Active Shandra Jean null, [place] [facility] 13:11:45 Posttrauma tic stress disorder 26954313 Active Shandra Jean null, [place] [facility] 13:11:52 Atrophic vaginitis 80083420 Active Shandra Jean null, [place] [facility] 13:12:24 Vaginal pain 50454096 Active Shandra Jean null, [place] [facility] 13:12:34 Chronic kidney disease stage 3A 733649119 Active 2024 SONALI DUENAS PA-C [address] [facility], [place], [address], [place] [facility] 5 15:43:31 Chronic back pain 512463117 Active 2024 SONALI DUENAS PA-C [address] [facility], [place], [address], [place] [facility] 5 15:43:35 Notes:ASCUS,Fibroids,Microhe maturia,Tubal ligation, Problem Notes None recorded. Procedures Surgical History Date Name Laterality Status Provider Name and Address Organization Details Recorded Time 3 Most Recent Mammogram completed SONALI DUENAS PA-C [address] [facility], [facility] [address], [place], [address], [facility] - [facility] 06/19/2023 10:48:16 2 Date of Last Pap Smear completed [facility] - [facility] 03/27/2023 13:14:02 9 Date of Last Colonoscopy completed [facility] - [facility] 03/27/2023 13:15:00 9 Colonoscopy completed [facility] 03/27/2023 13:15:05 Imaging Results None recorded. Procedure Notes None recorded. Medical Equipment None [...] completed Not Available Not Available Not Available codeine 10 mg-guaifene sin 200 mg/5 mL oral liquid Take 10 mL 3 times a day by oral route for 5 days. 11/26 completed Not Available Not Available Not Available [...] tablet TAKE ONE TABLET BY MOUTH EVERY MORNING AND TAKE 1/2 TABLET BY MOUTH IN THE EVENING active Not Available Not Available No [...] mg-guaifene sin 100 mg/5 mL oral liquid Take 10 mL 3 times a day by oral route as needed for 7 days. 12/08 completed Not Available Not Available Not Available estradiol 0.01% (0.1 mg/gram) vaginal cream APPLY 1 GRAM VAGINALLY AT BEDTIME FOR TWO WEEKS THEN TWICE WEEKLY active Not Available Not Available No t Available hydroxyzine HCl 10 mg tablet TAKE 1-2 TABLETS BY MOUTH TWO TIMES A DAY NEEDED FOR ANXIETY active Not [...] Updated DateTime 5 152.4 cm 49.2 kg/m2 419679. 28 g 96 % 96 % 56 /min 122 mm[Hg] 86 mm[Hg] [facility] 15:[facility]:31 Date Recorded Heart rate Systolic blood pressure Diastolic blood pressure Provider Name and Address Organization Details Last Updated DateTime 09/10/2024 57 /min 147 mm[Hg] 70 mm[Hg] Not Available [facility] 09/10/2024 01:54:34 Date Recorded Body height Body mass index (BMI) Body weight Oxygen saturation Oxygen saturation in Arterial blood by Pulse oximetry Heart rate Systolic blood pressure Diastolic blood pressure Provider Name and Address Organization Details Last Updated DateTime 4 152.4 cm 48.3 kg/m2 075561. 12 g 97 % 97 % 54 /min 122 mm[Hg] 80 mm[Hg] [facility] 11:03:20 Date Recorded Heart rate Systolic blood pressure Diastolic blood pressure Provider Name and Address Organization Details Last Updated DateTime 10/17/2023 55 /min 123 mm[Hg] 64 mm[Hg] Not Available [facility] 10/17/2023 14:46:05 Date Recorded Heart rate Systolic blood pressure Diastolic blood pressure Provider Name and Address Organization Details Last Updated DateTime 10/18/2023 65 /min 126 mm[Hg] 65 mm[Hg] Not Available [facility] 10/18/2023 13:55:05 Date Recorded Heart rate Systolic [...] and Address Organization Details Last Updated DateTime 11/05/2024 54 /min 144 mm[Hg] 73 mm[Hg] Not [facility] 11/05/2024 12:13:40 Date Recorded Heart rate Systolic blood pressure Diastolic blood pressure Provider Name and Address Organization Details Last Updated DateTime 11/06/2024 53 /min 145 mm[Hg] 70 mm[Hg] Not [facility] 11/06/2024 13:21:34 Date Recorded Heart rate Systolic blood pressure Diastolic blood pressure Provider Name and Address Organization Details Last Updated DateTime 11/08/2023 48 /min 136 mm[Hg] 62 mm[Hg] Not [facility] 11/08/2023 10:13:03 Date Recorded Heart rate Systolic blood pressure Diastolic blood pressure Provider Name and Address Organization Details Last Updated DateTime 11/10/2023 53 /min 127 mm[Hg] 66 mm[Hg] Not [facility] 11/10/2023 10:59:01 Date Recorded Heart rate Systolic blood pressure Diastolic blood pressure Provider Name and Address Organization Details Last Updated DateTime 11/11/2023 54 /min 127 mm[Hg] 77 mm[Hg] Not [facility] 11/11/2023 10:51:01 Date Recorded Heart rate Systolic blood pressure Diastolic blood pressure Provider Name and Address Organization Details Last Updated DateTime 11/13/2023 55 /min 137 mm[Hg] 72 mm[Hg] Not Available [facility] 11/13/2023 10:10:04 Date Recorded Heart rate Systolic blood pressure Diastolic blood pressure Provider Name and Address Organization Details Last Updated DateTime 11/14/2023 52 /min 133 mm[Hg] 59 mm[Hg] Not Available [facility] 11/14/2023 06:27:03 Date Recorded Heart rate Systolic blood pressure Diastolic blood pressure Provider Name and Address Organization Details Last Updated DateTime 11/15/2023 62 /min 118 mm[Hg] 71 mm[Hg] Not Available [facility] 11/15/2023 09:53:02 Date Recorded Heart rate Systolic blood pressure Diastolic blood pressure Provider Name and Address Organization Details Last Updated DateTime 11/16/2023 57 /min 138 mm[Hg] 71 mm[Hg] Not Available [facility] 11/16/2023 12:25:05 Date Recorded Heart rate Systolic blood pressure Diastolic blood pressure Provider Name and Address Organization Details Last Updated DateTime 11/18/2023 52 /min 120 mm[Hg] 65 mm[Hg] Not Available [facility] 11/18/2023 11:15:08 Date Recorded Heart rate Systolic blood pressure Diastolic blood pressure Provider Name and Address Organization Details Last Updated DateTime 11/24/2023 71 /min 131 mm[Hg] 65 mm[Hg] Not Available [facility] 11/24/2023 11:48:06 Date Recorded Heart rate Systolic blood pressure Diastolic blood pressure Provider Name and Address Organization Details Last Updated DateTime 11/25/2023 52 /min 120 mm[Hg] 65 mm[Hg] Not Available [facility] 11/25/2023 09:21:07 Date Recorded Body height Body mass index (BMI) Body weight Oxygen saturation Oxygen saturation in Arterial blood by Pulse oximetry Heart rate Body temperature Systolic blood pressure Diastolic blood pressure Provider Name and Address Organization Details Last Updated DateTime 152.4 cm 47.7 kg/m2 079440. 94 g 95 % 95 % 62 /min 98.1 [degF] 132 mm[Hg] 84 mm[Hg] Prachi Parker LPN [address] [facility], [facility] [address], [place], [address], [facility] 10:00:37 Date Recorded Heart rate Systolic blood pressure Diastolic blood pressure Provider Name and Address Organization Details Last Updated DateTime 11/26/2023 55 /min 125 mm[Hg] 55 mm[Hg] Not Available [facility] 11/26/2023 09:17:04 Date Recorded Heart rate Heart rate Systolic blood pressure Diastolic blood pressure Systolic blood pressure Diastolic blood pressure Provider Name and Address Organization Details Last Updated DateTime 53 /min 69 /min 123 mm[Hg] 62 mm[Hg] 148 mm[Hg] 112 mm[Hg] Not Available [facility] 10:52:09 Date Recorded Heart rate Systolic blood pressure Diastolic blood pressure Provider Name and Address Organization Details Last Updated DateTime 11/28/2023 58 /min 137 mm[Hg] 63 mm[Hg] Not Available [facility] 11/28/2023 11:26:09 Date Recorded Heart rate Systolic blood pressure Diastolic blood pressure Provider Name and Address Organization Details Last Updated DateTime 11/29/2023 55 /min 141 mm[Hg] 65 mm[Hg] Not [facility] 11/29/2023 11:40:03 Date Recorded Heart rate Systolic blood pressure Diastolic blood pressure Provider Name and Address Organization Details Last Updated DateTime 11/30/2023 55 /min 120 mm[Hg] 54 mm[Hg] Not Available [facility] 11/30/2023 09:28:02 Date Recorded Heart rate Systolic blood pressure Diastolic blood pressure Provider Name and Address Organization Details Last Updated DateTime 12/01/2023 58 /min 143 mm[Hg] 69 mm[Hg] Not Available [facility] 12/01/2023 12:03:03 Date Recorded Heart rate Systolic blood pressure Diastolic blood pressure Provider Name and Address Organization Details Last Updated DateTime 12/02/2023 55 /min 119 mm[Hg] 67 mm[Hg] Not Available [facility] 12/02/2023 10:59:05 Date Recorded Heart [...] /min 135 mm[Hg] 55 mm[Hg] Not Available [facility] 12/11/2023 12:57:01 Date Recorded Heart rate Systolic blood pressure Diastolic blood pressure Provider Name and Address Organization Details Last Updated DateTime 12/13/2023 57 /min 145 mm[Hg] 68 mm[Hg] Not Available [facility] 12/13/2023 09:20:03 Date Recorded Heart rate Systolic blood pressure Diastolic blood pressure Provider Name and Address Organization Details Last Updated DateTime 12/14/2023 55 /min 135 mm[Hg] 68 mm[Hg] Not Available [facility] 12/14/2023 12:17:06 Date Recorded Heart rate Systolic blood pressure Diastolic blood pressure Provider Name and Address Organization Details Last Updated DateTime 12/15/2023 51 /min 148 mm[Hg] 74 mm[Hg] Not Available [facility] 12/15/2023 09:11:03 Date Recorded Heart rate Systolic blood pressure Diastolic blood pressure Provider Name and Address Organization Details Last Updated DateTime 12/17/2023 55 /min 106 mm[Hg] 72 mm[Hg] Not Available [facility] 12/17/2023 10:33:05 Date Recorded Heart rate Systolic blood pressure Diastolic blood pressure Provider Name and Address Organization Details Last Updated DateTime 12/18/2023 58 /min 127 mm[Hg] 54 mm[Hg] Not [facility] 12/18/2023 16:17:05 Date Recorded Heart rate Systolic blood pressure Diastolic blood pressure Provider Name and Address Organization Details Last Updated DateTime 12/19/2023 70 /min 146 mm[Hg] 85 mm[Hg] Not Available [facility] 12/19/2023 09:35:07 Date Recorded Heart rate Systolic blood pressure Diastolic blood pressure Provider Name and Address Organization Details Last Updated DateTime 02/10/2024 51 /min 128 mm[Hg] 69 mm[Hg] Not Available [facility] 02/10/2024 12:09:02 Date Recorded Heart rate Systolic blood pressure Diastolic blood pressure Provider Name and Address Organization Details Last Updated DateTime 02/19/2024 52 /min 152 mm[Hg] 73 mm[Hg] Not Available [facility] 02/19/2024 11:46:06 Date Recorded Body height Body mass index (BMI) Body weight Oxygen saturation Oxygen saturation in Arterial blood by Pulse oximetry Heart rate Systolic blood pressure Diastolic blood pressure Provider Name and Address Organization Details Last Updated DateTime 4 152.4 cm 48 kg/m2 586323. 72 g 98 % 98 % 54 /min 148 mm[Hg] 94 mm[Hg] May Saenz carla [facility] 4 10:34:10 Date Recorded Heart rate Systolic blood pressure Diastolic blood pressure Provider Name and Address Organization Details Last Updated DateTime 02/27/2024 55 /min 152 mm[Hg] 78 mm[Hg] Not Available [facility] 02/27/2024 12:26:07 Date Recorded Heart rate Systolic blood pressure Diastolic blood pressure Provider Name and Address Organization Details Last Updated DateTime 02/29/2024 58 /min 136 mm[Hg] 63 mm[Hg] Not Available [facility] 02/29/2024 16:15:04 Date Recorded Heart rate Systolic blood pressure Diastolic blood pressure Provider Name and Address Organization Details Last Updated DateTime 03/26/2024 69 /min 115 mm[Hg] 69 mm[Hg] Not Available [facility] 03/29/2024 10:49:04 Date Recorded Heart rate Systolic blood pressure Diastolic blood pressure Provider Name and Address Organization Details Last Updated DateTime 03/29/2024 52 /min 144 mm[Hg] 76 mm[Hg] Not Available [facility] 03/29/2024 10:49:02 Date Recorded Heart rate Systolic blood pressure Diastolic blood pressure Provider Name and Address Organization Details Last Updated DateTime 03/31/2024 61 /min 141 mm[Hg] 77 mm[Hg] Not Available [facility] 03/31/2024 11:56:06 Date Recorded Body height Oxygen saturation Oxygen saturation in Arterial blood by Pulse oximetry Heart rate Systolic blood pressure Diastolic blood pressure Provider Name and Address Organization Details Last Updated DateTime 4 152.4 cm 97 % 97 % 74 /min 132 mm[Hg] 76 mm[Hg] Shandra Pena [facility] 15:41:45 Social History Question Answer Notes LastModified by Organizat ion Details LastModified Time Tobacco Smoking Status Former Smoker May baker [facility] 10/17/2023 11:01:18 When Did You Quit Smoking? 16+yearssinc elastcigaret te mburlingham Information not available 10/17/2023 What Was The Date Of Your Most Recent Tobacco Screening? 10/17/2023 Information not available 10/29/2023 Sex: Female Functional Status Question Answer Note LastModified by Organizat ion Details LastModified Time What is your level of alcohol consumption? 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 Family History Nothing Reported. Medical History No medical history recorded. Gynecological History Statement/Question Response Date of Last Pap Smear 07/08/2021 Most Recent Mammogram 06/19/2023 Date of Last Colonoscopy 10/19/2018 Colonoscopy 10/19/2018 Obstetrics History GPAL:G 0 P 0 0 0 0 Immunizations Vaccine Type Date Status Note Provider Nam e and Address Organization Details Recorded Time zoster recombinant 2 completed Mayvazquez Vazquez null, [place] [facility] 10/17/2023 10:56:35 zoster recombinant 0 completed May Burlingham null, [place] - [facility] 10/17/2023 10:56:35 zoster recombinant 3 completed May Samuelham null, [place] [facility] [...] or 50 mcg/0.25mL dose 1 completed May Vazquez null, [place] - [facility] 10/17/2023 10:56:35 Pneumococcal conjugate PCV20, polysaccharide [id number] conjugate, adjuvant, PF 3 completed May Taylor null, [place] - [facility] 10/17/2023 10:56:35 COVID-19, mRNA, LNP-S, bivalent, PF, 50 mcg/0.5 mL or 25mcg/0.25 mL dose 3 completed May Burlingham null, [place] - [facility] 10/17/2023 10:56:35 COVID-19, mRNA, LNP-S, PF, viviane-sucrose, 30 mcg/0.3 mL 3 [facility] 10/17/2023 10:56:35 Td (adult), 2 Lf tetanus toxoid, preservative free, adsorbed 6 completed [facility], [facility] 10/17/2023 10:56:35 Influenza, split virus, quadrivalent, PF 0 completed [facility], [facility] 10/17/2023 10:56:35 Influenza, split virus, quadrivalent, PF 3 completed [facility], [facility] 10/17/2023 10:56:35 Influenza, split virus, quadrivalent, PF 1 completed May Willard null, [facility] 10/17/2023 10:56:35 Influenza, split virus, quadrivalent, PF 2 completed May Willard null, [facility] 10/17/2023 10:56:35 Pneumococcal conjugate PCV20, polysaccharide [id number] conjugate, adjuvant, PF 5 completed Not Available [facility] 11/24/2024 09:51:39 COVID-19, mRNA, LNP-S, PF, 50 mcg/0.5 mL 5 completed Not Available [facility] 11/24/2024 09:51:39 Influenza, MDCK, trivalent, PF 5 completed Not Available [facility] 11/24/2024 09:51:39 Past Encounters Encounter ID Performer Location Encounter Start Date Encounter Closed Date Diagnosis/Indication Diagnosis SNOMED-CT Code Diagnosis ICD10 Code Diagnosis Note [id number] SONALI DUENAS PA-C Main Office [address] [place] [address] [address] [place] [address] 07/03/2023 14:42:35 07/03/2023 15:32:24 Binge eating disorder 656975152 F50.81 History of binge eating disorder. Not deemed a candidate for weight loss surgery. Additional history of anxiety and depression x 13 years. Follows with a therapist, although she is hoping to transition to a therapist who specialize s in eating disorders; has reached out to 3 providers through [employer] Screening for cardiovascular system disease 555948143 Z13.6 Diabetes m ellitus screening 816958235 Z13.1 History of myocardial infarction 103306930 I25.2 History of NSTEMI on 12/23/20. Followed/m anaged by Dr. Mcmanus ([facility]). Gastroesop hageal reflux disease 306860480 K21.9 Stable. Previously managed on PPI therapy. Now maintained on Acid-Eeze. Insomnia 566878895 F51.0 9 Stable. Maintains on melatonin 20mg, gabapentin , and hydroxyzin e. Mixed anxi ety and depressive disorder 003775950 F41.8 See above Patient ne w to provider [id number] 34610 Z76.89 Here to establish care. Up to date on recommende d health screenings . Will obtain labs prior to next visit. [id number] SONALI DUENAS PA-C Main Office [address] [facility] [place] [facility] [place] [facility] [place] [address] 08/14/2023 13:36:52 08/14/2023 14:20:49 Chronic kidney disease stage 3A 922710332 N18.31 Creatinine 1.3, stable with consistent results when compared to CIS. Patient reports elevated creatinine since mid 20s, previously seen by a nephrologi st. Has never obtained imaging of such. Recommende d renal ultrasound to rule out anatomic/h ereditary abnormalit ies, given abnormal creatinine since young adulthood. Patient declines at this time, but may consider in the future. Myocardial infarction 22 921333 I21.9 History of myocardial infarction secondary to coronary artery dissection . Given history of NSTEMI, statin therapy recommende d. LDL is above goal (<100). Patient declines starting medication at this time, prefers to manage initially with diet. Will plan to recheck in 6 months. May also consider coronary CT, which patient declines at this time. Chronic back pain 919279 002 G89.29 Persistent low back pain, worsened by sedentary lifestyle. Request refills of medication s as below. Discussed increasing physical activity, such as utilizing walk with [facility]ait[facility] program. Binge eating disorder 43 2464313 F50.81 History of binge eating disorder. Not deemed a candidate for weight loss surgery. Additional history of anxiety and depression x 13 years. Has an upcoming intake with a therapist/ registered dietitian who specialize s in this area. [id number] SONALI DUENAS PA-C Main Office [address] [facility] [place] [facility] [place] [place] [address] 10/17/2023 10:55:02 10/17/2023 11:56:27 Active or passive immunization 503143962 Z23 Up to date on recommende d imms (including Shingles and Tdap). Adult heal th examination 101915922 Z00.00 Up to date on recommende d [facility] maintaisha e.Blood pressure well-contr olled at 122/80. Myocardial infarction 22 903387 I21.9 History of NSTEMI secondary to coronary artery dissection . Followed/m anaged by [facility] (reviewed note from 07/03/2023). Continues on ASA and metoprolol . Given history of NSTEMI, statin therapy recommende d. LDL is above goal (<100). Patient declines starting medication at this time, prefers to manage initially with diet. Repeat lipid panel ordered for 12/2023. May also consider coronary CT, which patient declines at this time. Encouraged to exercise regularly. Gastroesop hageal reflux disease 749392214 K21.9 Previously managed on PPI therapy, now maintained on Acid-Eeze. Reports worsening GERD sx. Agreeable to PPI therapy at this time. Reviewed endoscopy results from 09/2018. Obesity 385036558 E66.9 8 Minutes spent on intensive obesity [...] if needed by the patient. Depressive disorder 0208 9972 F32.A Resources offered for behavioral health counseling , although declined. Currently under increased stress at home. May reach out if she would like counseling referrals. Chronic ki dney disease stage 3A 299519877 N18.31 Creatinine 1.3, stable with consistent results when compared to CIS. Patient reports elevated creatinine since mid 20s, previously seen by a nephrologi st. Has never obtained imaging of such. Recommende d renal ultrasound to rule out anatomic/h ereditary abnormalit ies, given abnormal creatinine since young adulthood. Patient declines at this time, but may consider in the future. Chronic back pain 774736 002 G89.29 Persistent low back pain, worsened by sedentary lifestyle. Maintained on gabapentin and cyclobenza shakila as needed. Discussed increasing physical activity, such as utilizing walk with [facility]ait[facility] program. Binge eating disorder 43 7124494 F50.81 History of binge eating disorder. Not deemed a candidate for weight loss surgery, despite 2 prior attempts. Additional history of anxiety and depression x 13 years. Recommende d to engaged with a therapist/ registered nutritioni st who specialize s in this area. Resources offered, although declined at this time. Insomnia 766605302 F51.0 9 Stable. Maintains on melatonin 20mg, gabapentin , and hydroxyzin e. [id number] SONALI DUENAS PA-C Main Office [address] [facility] [place] [facility] [place] [place] [address] 02/24/2024 10:20:43 02/24/2024 11:01:34 Myocardial infarction 16050293 I21.9 History of NSTEMI secondary to coronary artery dissection . Followed/m anaged by [facility] (reviewed note from 07/03/2023). Continues [...] to exercise regularly. Gastroesop hageal reflux disease 993194327 K21.9 Maintained on omeprazole 40 mg po daily Binge eating disorder 43 4412776 F50.81 History of binge eating disorder. Not deemed a candidate for weight loss surgery, despite 2 prior attempts. Additional history of anxiety and depression x 13 years. Recommende d to engaged with a therapist/ registered nutritioni st who specialize s in this area. Resources offered, although declined at previous visit. Depressive disorder 8732 4789 F32.A Medication provider: Jennifer Christina. Resources offered for behavioral health counseling , although declined. Currently under increased stress at home. May reach out if she would like counseling referrals. Chronic ki dney disease stage 3A 680439323 N18.31 Creatinine 1.3, stable with consistent results [...] testing at this time. Chronic back pain 690161 002 G89.29 Persistent , intermitte nt low [...] future flare-ups. which patient agrees with. Insomnia 119205016 F51.0 9 Stable. Maintains on melatonin 20mg, gabapentin , and hydroxyzin e. Constipation 01259379 K5 9.00 Reports recent constipati on after [...] provided in detail. Normal grief reaction 27 4087618 F43.20 Recently lost daughter within last 1-2 months. Feels well supported by family. Denies any additional resources at this time, but aware that she may reach out to request at any time. [id number] JENNIFER SAWYER Main Office [address] [facility] [place] [facility] [place],[address] [place] [address] 05/10/2024 15:35:36 05/10/2024 16:12:19 Dysuria 57364820 R30.0 Awaiting swab, urine dip with RBC's [...] but no other topicals. Will refer to [facility] for further evaluation Microscopic hematuria 19 8420478 R31.29 will refer to urogyn since patient has microscopi c hematuria 3+ [id number] SONALI DUENAS PA-C Main Office [address] [facility] [place] [facility] [place],[address] [place] [address] 07/09/2024 15:36:42 07/09/2024 16:28:02 Chronic back pain 331053199 G89.29 Persistent , intermitte nt low back [...] which patient agrees with. Myocardial infarction 22 724950 I21.9 History of NSTEMI secondary to coronary artery dissection . Followed/m anaged by [facility] (reviewed note from 07/03/2023). Continues [...] regularly. Chronic ki dney disease stage 3A 160077306 N18.31 Creatinine 1.24, stable with consistent results [...] continue to monitor. Binge eating disorder 43 9538972 F50.819 External hemorrhoids 239 85884 K64.4 Experienci ng daily discomfort secondary to external hemorrhoid . Declines pyhysical examinatio n. Agreeable to colorectal referral for future management . Obesity 137120442 E66.9 8 Minutes spent on intensive obesity [...] at annual exam Diabetes m ellitus screening 922290687 Z13.1 Screening for cardiovascular system disease 115627080 Z13.6 Thyroid di sorder screening 991197239 Z13.29 [id number] Andrew Breanna Buchanan DO Main Office [address] [facility] [place] [facility] [place] [facility] [place] [address] 11/24/2024 09:50:39 11/24/2024 11:24:52 Acute cough 8131731494 81799669 R05.1 Viral uppe r respiratory tract infection 839810955 J06.9 Health Concerns Section Related Observation LastModified by Organization Detai ls LastModified Time None Recorded Concern Status LastModified by Organization Details LastModified Time None Recorded Advance Directives Directive None Recorded Payers Insurance Date Sequence Insurance Name Policy Number Policy Ordoñez Covered Member ID Ordoñez Member ID Guarantor Name 07/09/2024 1 [place] [employer] Soco [place] [id number] [place] 07/09/2024 1 [facility] [id number] Soco Crossning [id number] Soco [place] 12/02/2024 1 [place] (MEDICARE [place]PLACEMENT PPO) [id number] Soco [place] [id number] Soco Perez Notes Date Note Type Note Provider Name and Address Organization Details Recorded Time 10/17/2023 text/html Annual WellnessReported bypatient.Diet and Nutrition:discussed [...] tetanus and shingles immunizations SONALI DUENAS PA-C [address] [place] [address], [id number], [facility] 10/29/2023 13:19:31 02/24/2024 text/html [...] prescribed Trazodone by a medical provider named Jenniefr Christina. Social history - Patient's daughter on [...] No numbness or tingling. SONALI DUENAS PA-C [address] [place] [address] [address], [place], [address], [facility] 02/26/2024 09:19:06 05/10/2024 text/html perineal area an d rectum feel warm X one yeardenies vaginal dischargePAP 2022 at [facility], record unavailable and unable to find her [facility] systemColonoscopy within 2 years, no polyps per patientTried tea tree ointmentDesitin ointmentlubricant stick on buttocks seemed to help ramos butter combination to perineal areaHas seen urology long time ago for microscopic hematuria, she is unsure of outcome JENNIFER SAWYER [address] [facility] [address], [place], [address], [facility] 05/10/2024 16:17:24 07/09/2024 text/html [...] not been sick recently. SONALI DUENAS PA-C [address] [facility] [address], [place], [address], [facility] 07/12/2024 06:06:10 11/24/2024 text/html Roslyn [place] - Cold started on November 19, 2024, with throat symptoms, progressing to a cough. - Coughing fits began on November 212024, with a persistent cough reflex. - Cough is dry, not producing colored phlegm. - No fever reported, temperature not taken. - Postnasal drip present, using Flonase and Benadryl for management. - Has an inhaler, used as needed, but uncertain of its effectiveness. - No dental pain or sore throat. - Previous use of codeine cough syrup was effective in managing symptoms. Andrew Buchanan, DO [address] [facility], [facility] [address], [place], [address], [facility] 11/24/2024 13:55:52 OBGyn Episode No OBEpisode recorded.
== END 2024-12-13 10:40 | disposition home or self-care (01) ==
LOC: HO.HOP 10:39
PROVIDERS: PCP Family Medicine; Visit Provider Clinical Nurse Specialist Psychiatric/Mental Health
DX: F43.10 Post-traumatic stress disorder, unspecified (principal); F33.1 Major depressive disorder, recurrent, moderate; F43.20 Adjustment disorder, unspecified; Z63.4 Disappearance and death of family member; F50.81 Binge eating disorder
CPT/HCPCS: 99214

== ENCOUNTER 2025-01-17 10:55 | Outpatient (AMB) | payer MEDICARE, SELFPAY ==
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
--- OUTSIDE RECORDS SUMMARY | 2025-01-17 12:03 | XMS_ITS | Clinical Summary ---
Author Organization [employer] Address [address] [place] [address] Care Team Providers Care Fleet Administrator Name Role Phone Megha Arroyo Unavailable Jairo Patel DDS Unavailable [phone] Allergies Active Allergy Reactions Criticality Noted Date [...] Description 10/28/2024 9:45 AM EDT Office Visit [address] [phone] Darlene Zabala from Last 3 Months Social History Tobacco [...] 55 04/27/2024 9:57 AM EDT Temperature 36.7 C (98 F) 10/28/2024 10:13 AM EDT Respiratory Rate - - Oxygen Saturation - - Inhaled Oxygen Concentration - - Weight - - Height - - Body Mass Index - - Plan of Treatment Upcoming Encounters Date Type Department Care Team (Late st Contact Info) Description 05/03/2025 10:00 AM EST Office Visit [facility] [address] [place] [phone] Catia Jefferson [address] [place] [address] Health Maintenance Due Date Last Done Comments CT Colonography 1961 Colonoscopy 1961 Colorectal Cancer Screening 1961 Depression Screening 1961 FIT DNA/Cologuard 1961 FIT 1961 FOBT 1961 HIV Screening 1961 Lipid Panel 1961 SDOH Screening 1961 Sigmoidoscopy 1961 Disability Screening 1961 Hepatitis C Screening 1979 Pap Smear 1982 Cervical Cancer Screening 1991 HPV/Cotest 1991 Mammogram 2001 Hepatitis B Vaccines (3 of 3 - 19+ 3-dose series) 06/05/2005 01/01/2005, 12/04/2004 RSV Patients and Patients Aged 60 years or older (1 - Risk 60-74 years 1-dose series) 2021 Dental Oral Exam 09/10/2023 03/11/2023, 06/17/2018 Tobacco Screening 04/18/2024 04/18/2023 Influenza Vaccine (#1) 2025 , 04/16/2023, 06/18/2022, Additional history exists Dental Prophylaxis 05/01/2025 10/28/2024, 1 , 10/21/2023, Additional history exists Alcohol/Substance Use Screening 10/28/2025 10/28/2024 Dental X-Ray: Bitewings 10/29/2025 10/29/19 25, 03/11/2023, 06/17/2018 Dental X-Ray: Full Mouth 03/12/2026 03/11/2023, 05/30 DTaP/Tdap/Td Vaccines (4 - Td or Tdap) 03/25/2026 03/25/2016, 03/25/2016, 06/08/2008, Additional history exists Zoster Vaccines Completed 04/28/2023, 11/2021, 03/21/2020 COVID-19 Vaccine Completed 07/02/2024, , 07/12/2022, Additional history exists Pneumococcal Vaccine: 50+ Years [...] patient's age to complete this topic Meningococcal B Vaccine Aged Out No l onger eligible based on patient's age to complete [...] Most Recently Relevant to Health Maintenance Insurance [facility] - [place] Care Teams Fleet Administrator Relationship Specialty Start Date End Date Megha Arroyo [address] [place] [address] Dental Director Medical Affairs 10/21/23 Jairo Patel DDS [address] [place] [address] Dentist 10/21/23
--- OUTSIDE RECORDS SUMMARY | 2025-01-17 12:03 | XMS_ITS | Data Portability ---
Author Organization MD - [facility], [employer] Address [address] [place] [id number] Assessment Encounter Date Assessment Date Assessment LastModified by Organization Details LastModified Time 10/17/2023 10/17/2023 The patient was advised to continue a healthy diet and exercise regularly. Preventative care discussed in detail. Eight minutes spent on each counselling about depression, alcohol, obesity, and cardiovascular health. Further preventative care counselling discussed as documented below. [email or web address] Not available 10/29/2023 13:18:02 02/24/2024 02/24/2024 Appointments - Follow-up appointment in 6 to 8 weeks, labs prior The following time was spent on todays E/M encounter, including preparing for the visit, reviewing results, seeing the patient, and documentation on the date of service of the encounter: 40 mins [email or web address] Not available 02/26/2024 09:12:22 05/10/2024 05/10/2024 The following time was spent on todays E/M encounter, including preparing for the visit, reviewing results, seeing the patient, and documentation on the date of service of the encounter: 30 [id number] 15-29 minutes [id number] 30-44 minutes 33739 45-59 minutes 10609 60-74 minutes 28046 10-19 minutes 07113 20-29 minutes 30250 30-39 minutes 19592 40-54 minutes [email or web address] Not available 05/10/2024 16:16:12 07/09/2024 07/09/2024 Assessment [...] of service of the encounter: 45 mins [email or web address] Not available 07/12/2024 06:04:41 11/24/2024 11/24/2024 Assessment [...] LPN under the direct supervision of Andrew Bucahnan DO and they are physically present in the office and available for immediate consultation. The treatment plan was determined by the supervising provider. [email or web address] Not available 11/24/2024 10:14:03 Plan of Treatment Reminders Order Date Submit Date Provider Last Modified By Organization Details Last Modified Time Details Appointments Annual Exam 2024 03:00P M SONALI DUENAS PA-C Not available Not available Not available Lab lipid panel, serum 2024 025 [facility], [address] [facility], [place], [address], 07/12/2024 06:06:14 TSH, ultra-sen sitive, serum 2024 025 ALEISHA [facility], [address], [place], [address], 07/12/2024 06:06:14 CBC 2024 025 ALEISHA [facility], [address], [place], [address], 07/12/2024 06:06:14 HbA1c (hemoglob in A1c), blood 2024 025 ALEISHA [facility], [address], [place], [address], 07/12/2024 06:06:13 vaginal pathogens panel, PRITI+probe , vaginal fluid 2023 024 MAGNOLIA [facility], [address], [place], [address], 05/12/2024 14:06:53 urinalysi s, dipstick 2023 024 [place] [address] Main Office, [address] [place] [address], [address], [place], [address], 05/10/2024 16:18:50 CMP, serum or plasma 2023 024 MAGNOLIA [facility], [address], [place], [address], 06/17/2024 06:08:10 lipid panel, serum 2023 024 MAGNOLIA [facility], [address], [place], [address], 06/17/2024 06:08:11 Referral colon & rectal surgeon referral 2024 025 humble [facility] Colorectal Surgery Scheduling Dept, [address] [place], [address], 09/03/2024 13:49:17 gynecolog ist referral 2023 024 humble Not available 06/01/2024 09:02:25 Procedures None recorded. Surgeries None recorded. Imaging None recorded. Medication Orders codeine 10 mg-guaife nesin 100 mg/5 mL oral liquid 2024 025 MAGNOLIA [facility], [address] [place], [address], 12/08/2024 05:01:23 Senna Plus 8.6 mg-50 mg capsule 2023 024 MAGNOLIA [facility], [address] [place], [address], 02/26/2024 09:01:34 omeprazol e 40 mg capsule,d elayed release 2023 024 MAGNOLIA [facility], [address] [place], [address], 10/29/2023 13:17:59 Patient TargetsNo targets recorded. Patient Instructions Encounter Date Encounter Id Patient Instructions Last Modified By Organization Details Last Modified Time 02/24/2024 [id number] back pain: care instructions [email or web address] Not available 02/24/2024 10:49:58 low back pain: exercises [email or web address] Not available 02/24/2024 10:49:58 back care and preventing injuries: care instructions Not available 02/24/2024 10:49:58 11/24/2024 [id number] Based on our discussion, I have outlined [...] Not available 11/24/2024 10:11:16 Reason for Referral Differential Specialist Referral for Dy suria Referring Physician: [...] Low - 0 score Not Available [facility] ([facility]) [address] [facility], [place], [address], 05/12/2024 14:06:53 05/10/20 24 05/11/2024 NUSWA B VAGIN ITIS PLUS (VG+) bvab 2 Low - 0 score Not Available [facility] ([facility]) [address] [facility] [place], [place], [address], 05/12/2024 14:06:53 05/10/2005/11/2024 NUA B VAGIN ITIS PLUS (VG+) megasphaera [...] prese nce of BV. Not Available [facility] ([facility]) [address] [facility] [address] [place], [place], [address], 05/12/2024 14:06:53 05/10/20 24 05/11/2024 NUSWA B VAGIN ITIS PLUS (VG+) shannan albicans, PRITI Negati ve negati ve Not Available [facility] ([facility]) [address] [place], [address], 05/12/2024 14:06:53 05/10/20 24 05/11/2024 NUSWA B VAGIN ITIS PLUS (VG+) shannan glabrata, PRITI Negati ve negati ve Not Available [facility] ([facility]) [address] [facility] [address] [place], [place], [address], 05/12/2024 14:06:53 05/10/20 24 05/12/2024 NUSWA B VAGIN ITIS PLUS (VG+) trich vag by PRITI Negati ve negati ve Not Available [facility] ([facility]) [address] [facility] [address] [facility], [place], [address], 05/12/2024 14:06:53 05/10/20 24 05/12/2024 NUSWA B VAGIN ITIS PLUS (VG+) chlamydia trachomatis, PRITI Negati ve negati ve Not Available [facility] ([facility]) [address] [facility] [address] [facility], [place], [address], 05/12/2024 14:06:53 05/10/20 24 05/12/2024 NUSWA B VAGIN ITIS PLUS (VG+) neisseria gonorrhoeae, PRITI Negati ve negati ve Not Available [facility] ([facility]) [address] [facility] [place] [facility], [place], [address], 05/12/2024 14:06:53 05/10/20 24 05/10/2024 urina lysis , dipst ick Leukocytes negati ve Not Available Main Office [address], [address], 05/10/2024 15:56:33 05/10/20 24 05/10/2024 urina lysis , dipst ick Nitrite negati ve Not Available Main Office [address] [facility] [address], [place], [address], 05/10/2024 15:56:33 05/10/20 24 05/10/2024 urina lysis , dipst ick Urobilinogen negati ve Not Available Main Office [address] [facility] [address], [place], [address], 05/10/2024 15:56:33 05/10/20 24 05/10/2024 urina lysis , dipst ick Protein negati ve Not Available Main Office [address] [facility] [address], [place], [address], 05/10/2024 15:56:33 05/10/20 24 05/10/2024 urina lysis , dipst ick pH 5.5 Not Available Main Offic e [address] [facility] [address], [place], [address], 05/10/2024 15:56:33 05/10/20 24 05/10/2024 urina lysis , dipst ick Blood 3+ Not Available Main Offic e [address] [facility] [address], [place], , 05/10/2024 15:56:33 05/10/20 24 05/10/2024 urina lysis , dipst ick Specific Cades 1.020 Not Available Main O ffice [address] [facility] [address], [place], [place], , 05/10/2024 15:56:33 05/10/20 24 05/10/2024 urina lysis , dipst ick Ketone negati ve Not Available Main Office [address] [facility] [address], [place], [address], 05/10/2024 15:56:33 05/10/20 24 05/10/2024 urina lysis , dipst ick Bilirubin negati ve Not Available Main Office [address] [facility] [address], [place], [address], 05/10/2024 15:56:33 05/10/20 24 05/10/2024 urina lysis , dipst ick Glucose negati ve Not Available Main Office [address] [facility] [address], [place], [address], 05/10/2024 15:56:33 06/16/20 24 06/16/2024 COMP. METAB OLIC PANEL (14) glucose 92 mg/dL 70-99 normal Not Available [facility] ([facility]) [address] [facility] [place], [place], [address], 06/17/2024 06:08:10 06/16/20 24 06/16/2024 COMP. METAB OLIC PANEL (14) BUN 22 mg/dL 8-27 normal Not Available [facility] ([facility]) [address] [place], [address], 06/17/2024 06:08:10 06/16/20 24 06/16/2024 COMP. METAB OLIC PANEL (14) creatinine 1.24 mg/dL 0.57-1 .00 above high normal Not Available [facility] ([facility]) [address] [place], [address], 06/17/2024 06:08:10 06/16/20 24 06/16/2024 COMP. METAB OLIC PANEL (14) eGFR 49 mL/mi n/1.7 3 >59 below low normal Not Available [facility] ([facility]) [address] [place], [address], 06/17/2024 06:08:10 06/16/20 24 06/16/2024 COMP. METAB OLIC PANEL (14) BUN/creatini ne ratio 18 12-28 normal Not Available [facility] ([facility]) [address] [place], [address], 06/17/2024 06:08:10 06/16/20 24 06/16/2024 COMP. METAB OLIC PANEL (14) sodium 142 mmol/ L 134-14 4 normal Not Available [facility] ([facility]) [address] [place], [address], 06/17/2024 06:08:10 06/16/20 24 06/16/2024 COMP. METAB OLIC PANEL (14) potassium 4.6 mmol/ L 3.5-5. 2 normal Not Available [facility] ([facility]) [address] [place], [address], 06/17/2024 06:08:10 06/16/20 24 06/16/2024 COMP. METAB OLIC PANEL (14) chloride 104 mmol/ L 96-106 normal Not Available [facility] ([facility]) [address] [place], [address], 06/17/2024 06:08:10 06/16/20 24 06/16/2024 COMP. METAB OLIC PANEL (14) carbon dioxide, total 25 mmol/ L 20-29 normal Not Available [facility] ([facility]) [address] [place], [place], [address], 06/17/2024 06:08:10 06/16/20 24 06/16/2024 COMP. METAB OLIC PANEL (14) calcium 9.2 mg/dL 8.7-10 .3 normal Not Available [facility] ([facility]) [address] [place], [address], 06/17/2024 06:08:10 06/16/20 24 06/16/2024 COMP. METAB OLIC PANEL (14) protein, total 6.8 g/dL 6.0-8. 5 normal Not Available [facility] ([facility]) [address] [place], [address], 06/17/2024 06:08:10 06/16/20 24 06/16/2024 COMP. METAB OLIC PANEL (14) albumin 4.0 g/dL 3.9-4. 9 normal Not Available [facility] ([facility]) [address] [place], [address], 06/17/2024 06:08:10 06/16/20 24 06/16/2024 COMP. METAB OLIC PANEL (14) globulin, total 2.8 g/dL 1.5-4. 5 Not Available [facility] ([facility]) [address] [place], [address], 06/17/2024 06:08:10 06/16/20 24 06/16/2024 COMP. METAB OLIC PANEL (14) bilirubin, total 0.3 mg/dL 0.0-1. 2 normal Not Available [facility] ([facility]) [address] [place], [address], 06/17/2024 06:08:10 06/16/20 24 06/16/2024 COMP. METAB OLIC PANEL (14) alkaline phosphatase 76 IU/L 44-121 normal Not Available [facility]) [address] [place], [address], 06/17/2024 06:08:10 06/16/20 24 06/16/2024 COMP. METAB OLIC PANEL (14) AST (SGOT) 16 IU/L 0-40 normal Not Available [facility] ([facility]) [address] [place], [address], 06/17/2024 06:08:10 06/16/20 24 06/16/2024 COMP. METAB OLIC PANEL (14) ALT (SGPT) 17 IU/L 0-32 normal Not Available [facility] ([facility]) [address] [place], [address], 06/17/2024 06:08:10 06/16/20 24 06/17/2024 LIPID PANEL cholesterol, total 203 mg/dL 100-19 9 above high normal Not Available [facility] ([facility]) [address] [place], [address], 06/17/2024 06:08:11 06/16/20 24 06/17/2024 LIPID PANEL triglyceride s 132 mg/dL 0-149 normal Not Available [facility]) [address] [place], [address], 06/17/2024 06:08:11 06/16/20 24 06/17/2024 LIPID PANEL HDL cholesterol 51 mg/dL >39 normal Not Available [facility]) [address] [place], [address], 06/17/2024 06:08:11 06/16/20 24 06/17/2024 LIPID PANEL VLDL cholesterol seth 24 mg/dL 5-40 Not Available [facility]) [address] [facility] [address] [place], [place], [address], 06/17/2024 06:08:11 06/16/20 24 06/17/2024 LIPID PANEL LDL chol calc ([facility]) 128 mg/dL 0-99 above high normal Not Available [facility] ([facility]) [address] [facility] [address] [place], [place], [address], 06/17/2024 06:08:11 06/16/20 24 06/17/2024 LIPID PANEL LDL calc comment: M1A1 [employer] Not Available [facility] ([facility]) [address] [facility] [address] [place], [place], [address], 06/17/2024 06:08:11 07/01/19 25 07/01/2024 MAMMO , scree gio, digit al, bilat eral No observ ation record ed. [email or web address] Not Available 2024 10:12:14 Result Notes None recorded. Problems Name Problem SNOMED Code Status Onset Date Resolution Date Notes Provider Name and Address Organization Details Recorded Time Anxiety 27159683 Active Shandra Jean null, [place] [facility] 13:08:46 Atypical chest pain 231686390 Active Shandra Jean null, [place] [facility] 13:09:02 Binge eating disorder 802253893 Active Shandra Jean null, [place] [facility] 13:09:11 Cyst of breast 382118194 Active Shandra Jean null, [place] [facility] 13:09:22 Renal impairment 479195529 Active Shandra Jean null, [place] [facility] 13:09:36 Dissection of coronary artery 513177032 Active Shandra Jean null, [place] [facility] 13:09:45 Depressive disorder 05902211 Active Shandra Jean null, [place] [facility] 13:09:53 Dyspnea at rest 332114032 Active Shandra Jean null, [place] [facility] 13:10:04 Gastroesop hageal reflux disease 030175931 Active Shandra Jean null, [place] [facility] 13:10:27 Impaired fasting glycemia 212839636 Active Shandra Jean null, [place] [facility] 13:10:32 Insomnia 773926740 Active Shandra Jean null, [place] [facility] 13:10:41 Lateral epicondyli tis 288227529 Active Shandra Jean null, [place] [facility] 13:10:50 Medial epicondyli tis 85234125 Active Shandra Jean null, [place] [facility] 13:10:58 Myocardial infarction 54708183 Active NSTEMI (non-ST elevated myocardial infarction ) Shandra Jean null, [place] - [facility] 13:11:32 Obesity 927516133 Active Shandra Jean null, [place] [facility] 13:11:45 Posttrauma tic stress disorder 38886245 Active Shandra Jean null, [place] [facility] 13:11:52 Atrophic vaginitis 39185279 Active Shandra Jean null, [place] [facility] 13:12:24 Vaginal pain 49069989 Active Shandra Jean null, [place] [facility] 13:12:34 Chronic kidney disease stage 3A 768884228 Active 2024 SONALI DUENAS PA-C [address], [place], [address], [place] [facility] 15:43:31 Chronic back pain 792005280 Active 2024 SONALI DUENAS PA-C [address], [place], [address], [place] [facility] 15:43:35 Notes:ASCUS,Fibroids,Microhe maturia,Tubal ligation, Problem Notes None recorded. Procedures Surgical History Date Name Laterality Status Provider Name and Address Organization Details Recorded Time 3 Most Recent Mammogram completed SONALI DUENAS PA-C [address] [facility], [facility] [address], [place], [address], [facility] 06/19/2023 10:48:16 2 Date of Last Pap Smear completed [facility] 03/27/2023 13:14:02 9 Date of Last Colonoscopy completed [facility] 03/27/2023 13:15:00 9 Colonoscopy completed [facility] 03/27/2023 13:15:05 Imaging Results None recorded. Procedure [...] blood by Pulse oximetry Heart rate Systolic And Diastolic Provider Name and Address Organization Details Last Updated DateTime 5 152.4 cm 49.2 kg/m2 001225. 28 g 96 % 96 % 56 /min 122/86 mm[Hg] [facility] 5 15:43:31 Date Recorded Heart rate Systolic And Diastolic Provider Name and Address Organization Details Last Updated DateTime 09/10/2024 57 /min 147/70 mm[Hg] Not Available [facility] 09/10/2024 01:54:34 Date Recorded Body height Body mass index (BMI) Body weight Oxygen saturation Oxygen saturation in Arterial blood by Pulse oximetry Heart rate Systolic And Diastolic Provider Name and Address Organization Details Last Updated DateTime 4 152.4 cm 48.3 kg/m2 648521. 12 g 97 % 97 % 54 /min 122/80 mm[Hg] [facility] 4 11:03:20 Date Recorded Heart rate Systolic And Diastolic Provider Name and Address Organization Details Last Updated DateTime 10/17/2023 55 /min 123/64 mm[Hg] Not Available [facility] 10/17/2023 14:46:05 Date Recorded Heart rate Systolic And Diastolic Provider Name and Address Organization Details Last Updated DateTime 10/18/2023 65 /min 126/65 mm[Hg] Not Available [facility] 10/18/2023 13:55:05 Date Recorded Heart rate Systolic And Diastolic Provider Name and Address Organization Details Last Updated DateTime 10/19/2023 53 /min 140/68 mm[Hg] Not Available [facility] 10/19/2023 16:45:07 Date Recorded Heart rate Systolic And Diastolic Provider Name and Address Organization Details Last Updated DateTime 10/21/2023 56 /min 119/57 mm[Hg] Not Available [facility] 10/21/2023 12:53:01 Date Recorded Heart rate Systolic And Diastolic Provider Name and Address Organization Details Last Updated DateTime 10/23/2023 55 /min 139/68 mm[Hg] Not Available [facility] 10/23/2023 15:29:06 Date Recorded Heart rate Systolic And Diastolic Provider Name and Address Organization Details Last Updated DateTime 11/05/2024 54 /min 144/73 mm[Hg] Not Available [facility] 11/05/2024 12:13:40 Date Recorded Heart rate Systolic And Diastolic Provider Name and Address Organization Details Last Updated DateTime 11/06/2024 53 /min 145/70 mm[Hg] Not Available [facility] 11/06/2024 13:21:34 Date Recorded Heart rate Systolic And Diastolic Provider Name and Address Organization Details Last Updated DateTime 11/08/2023 48 /min 136/62 mm[Hg] Not Available [facility] 11/08/2023 10:13:03 Date Recorded Heart rate Systolic And Diastolic Provider Name and Address Organization Details Last Updated DateTime 11/10/2023 53 /min 127/66 mm[Hg] Not Available [facility] 11/10/2023 10:59:01 Date Recorded Heart rate Systolic And Diastolic Provider Name and Address Organization Details Last Updated DateTime 11/11/2023 54 /min 127/77 mm[Hg] Not Available [facility] 11/11/2023 10:51:01 Date Recorded Heart rate Systolic And Diastolic Provider Name and Address Organization Details Last Updated DateTime 11/13/2023 55 /min 137/72 mm[Hg] Not Available [facility] 11/13/2023 10:10:04 Date Recorded Heart rate Systolic And Diastolic Provider Name and Address Organization Details Last Updated DateTime 11/14/2023 52 /min 133/59 mm[Hg] Not Available [facility] 11/14/2023 06:27:03 Date Recorded Heart rate Systolic And Diastolic Provider Name and Address Organization Details Last Updated DateTime 11/15/2023 62 /min 118/71 mm[Hg] Not Available [facility] 11/15/2023 09:53:02 Date Recorded Heart rate Systolic And Diastolic Provider Name and Address Organization Details Last Updated DateTime 11/16/2023 57 /min 138/71 mm[Hg] Not Available [facility] 11/16/2023 12:25:05 Date Recorded Heart rate Systolic And Diastolic Provider Name and Address Organization Details Last Updated DateTime 11/18/2023 52 /min 120/65 mm[Hg] Not Available [facility] 11/18/2023 11:15:08 Date Recorded Heart rate Systolic And Diastolic Provider Name and Address Organization Details Last Updated DateTime 11/24/2023 71 /min 131/65 mm[Hg] Not Available [facility] 11/24/2023 11:48:06 Date Recorded Heart rate Systolic And Diastolic Provider Name and Address Organization Details Last Updated DateTime 11/25/2023 52 /min 120/65 mm[Hg] Not Available [facility] 11/25/2023 09:21:07 Date Recorded Body height Body mass index (BMI) Body weight Oxygen saturation Oxygen saturation in Arterial blood by Pulse oximetry Heart rate Body temperature Systolic And Diastolic Provider Name and Address Organization Details Last Updated DateTime 152.4 cm 47.7 kg/m2 451615. 94 g 95 % 95 % 62 /min 98.1 [degF] 132/84 mm[Hg] [employer], [place], [address], [place] - [facility] 10:00:37 Date Recorded Heart rate Systolic And Diastolic Provider Name and Address Organization Details Last Updated DateTime 11/26/2023 55 /min 125/55 mm[Hg] Not Available [facility] 11/26/2023 09:17:04 Date Recorded Heart rate Heart rate Systolic And Diastolic Systolic And Diastolic Provider Name and Address Organization Details Last Updated DateTime 11/27/2023 53 /min 69 /min 123/62 mm[Hg] 148/112 mm[Hg] Not Available [facility] 11/27/2023 10:52:09 Date Recorded Heart rate Systolic And Diastolic Provider Name and Address Organization Details Last Updated DateTime 11/28/2023 58 /min 137/63 mm[Hg] Not Available [facility] 11/28/2023 11:26:09 Date Recorded Heart rate Systolic And Diastolic Provider Name and Address Organization Details Last Updated DateTime 11/29/2023 55 /min 141/65 mm[Hg] Not Available [facility] 11/29/2023 11:40:03 Date Recorded Heart rate Systolic And Diastolic Provider Name and Address Organization Details Last Updated DateTime 11/30/2023 55 /min 120/54 mm[Hg] Not Available [facility] 11/30/2023 09:28:02 Date Recorded Heart rate Systolic And Diastolic Provider Name and Address Organization Details Last Updated DateTime 12/01/2023 58 /min 143/69 mm[Hg] Not Available [facility] 12/01/2023 12:03:03 Date Recorded Heart rate Systolic And Diastolic Provider Name and Address Organization Details Last Updated DateTime 12/02/2023 55 /min 119/67 mm[Hg] Not Available [facility] 12/02/2023 10:59:05 Date Recorded Heart rate Heart rate Systolic And Diastolic Systolic And Diastolic Provider Name and Address Organization Details Last Updated DateTime 12/05/2023 59 /min 56 /min 148/74 mm[Hg] 138/74 mm[Hg] Not Available [facility] 12/05/2023 12:48:06 Date Recorded Heart rate Systolic And Diastolic Provider Name and Address Organization Details Last Updated DateTime 12/09/2023 53 /min 132/67 mm[Hg] Not Available [facility] 12/09/2023 15:29:02 Date Recorded Heart rate Systolic And Diastolic Provider Name and Address Organization Details Last Updated DateTime 12/11/2023 55 /min 135/55 mm[Hg] Not Available [facility] 12/11/2023 12:57:01 Date Recorded Heart rate Systolic And Diastolic Provider Name and Address Organization Details Last Updated DateTime 12/13/2023 57 /min 145/68 mm[Hg] Not Available [facility] 12/13/2023 09:20:03 Date Recorded Heart rate Systolic And Diastolic Provider Name and Address Organization Details Last Updated DateTime 12/14/2023 55 /min 135/68 mm[Hg] Not Available [facility] 12/14/2023 12:17:06 Date Recorded Heart rate Systolic And Diastolic Provider Name and Address Organization Details Last Updated DateTime 12/15/2023 51 /min 148/74 mm[Hg] Not Available [facility] 12/15/2023 09:11:03 Date Recorded Heart rate Systolic And Diastolic Provider Name and Address Organization Details Last Updated DateTime 12/17/2023 55 /min 106/72 mm[Hg] Not Available [facility] 12/17/2023 10:33:05 Date Recorded Heart rate Systolic And Diastolic Provider Name and Address Organization Details Last Updated DateTime 12/18/2023 58 /min 127/54 mm[Hg] Not Available [facility] 12/18/2023 16:17:05 Date Recorded Heart rate Systolic And Diastolic Provider Name and Address Organization Details Last Updated DateTime 12/19/2023 70 /min 146/85 mm[Hg] Not Available [facility] 12/19/2023 09:35:07 Date Recorded Heart rate Systolic And Diastolic Provider Name and Address Organization Details Last Updated DateTime 02/10/2024 51 /min 128/69 mm[Hg] Not Available [facility] 02/10/2024 12:09:02 Date Recorded Heart rate Systolic And Diastolic Provider Name and Address Organization Details Last Updated DateTime 02/19/2024 52 /min 152/73 mm[Hg] Not Available [facility] 02/19/2024 11:46:06 Date Recorded Body height Body mass index (BMI) Body weight Oxygen saturation Oxygen saturation in Arterial blood by Pulse oximetry Heart rate Systolic And Diastolic Provider Name and Address Organization Details Last Updated DateTime 152.4 cm 48 kg/m2 891117. 72 g 98 % 98 % 54 /min 148/94 mm[Hg] May [facility] 10:34:10 Date Recorded Heart rate Systolic And Diastolic Provider Name and Address Organization Details Last Updated DateTime 02/27/2024 55 /min 152/78 mm[Hg] Not Available [facility] 02/27/2024 12:26:07 Date Recorded Heart rate Systolic And Diastolic Provider Name and Address Organization Details Last Updated DateTime 02/29/2024 58 /min 136/63 mm[Hg] Not Available [facility] 02/29/2024 16:15:04 Date Recorded Heart rate Systolic And Diastolic Provider Name and Address Organization Details Last Updated DateTime 03/26/2024 69 /min 115/69 mm[Hg] Not Available [facility] 03/29/2024 10:49:04 Date Recorded Heart rate Systolic And Diastolic Provider Name and Address Organization Details Last Updated DateTime 03/29/2024 52 /min 144/76 mm[Hg] Not Available [facility] 03/29/2024 10:49:02 Date Recorded Heart rate Systolic And Diastolic Provider Name and Address Organization Details Last Updated DateTime 03/31/2024 61 /min 141/77 mm[Hg] Not Available [facility] 03/31/2024 11:56:06 Date Recorded Body height Oxygen saturation Oxygen saturation in Arterial blood by Pulse oximetry Heart rate Systolic And Diastolic Provider Name and Address Organization Details Last Updated DateTime 4 152.4 cm 97 % 97 % 74 /min 132/76 mm[Hg] Shandra Pena [facility] 4 15:41:45 Social History Question Answer Notes LastModified by Organizat ion Details LastModified Time Tobacco Smoking Status Former Smoker May baker [facility] 10/17/2023 11:01:18 When Did You Quit Smoking? 16+yearssinc elastcigaret te [place] Information not available 10/17/2023 What Was The Date Of Your Most Recent Tobacco Screening? 10/17/2023 [email or web address] Information not available 10/29/2023 Sex: Female Functional Status Question Answer Note LastModified by Organizat ion Details LastModified Time What is your level of alcohol consumption? None Information not available 10/29/2023 What is your [...] Recorded Time zoster recombinant 2 completed May baker, [facility] 10/17/2023 10:56:35 zoster recombinant 0 completed May baker [facility] 10/17/2023 10:56:35 zoster recombinant 3 completed May [place] null, [place] [facility] 10/17/2023 10:56:35 COVID-19, mRNA, LNP-S, PF, 100 mcg/0.5mL dose or 50 mcg/0.25mL dose 1 completed [facility] [place] [facility] 10/17/2023 10:56:35 COVID-19, mRNA, LNP-S, PF, 100 mcg/0.5mL dose or 50 mcg/0.25mL dose 1 completed [facility], [place] [facility] 10/17/2023 10:56:35 COVID-19, mRNA, LNP-S, PF, 100 mcg/0.5mL dose or 50 mcg/0.25mL dose 1 completed May Vazquez null, [place] - [facility] 10/17/2023 10:56:35 Pneumococcal conjugate PCV20, polysaccharide [id number] conjugate, adjuvant, PF 3 completed May Vazquez null, [place] - [facility] 10/17/2023 10:56:35 COVID-19, mRNA, LNP-S, bivalent, PF, 50 mcg/0.5 mL or 25mcg/0.25 mL dose 3 completed May [facility], [place] [facility] 10/17/2023 10:56:35 COVID-19, mRNA, LNP-S, PF, viviane-sucrose, 30 mcg/0.3 mL 3 completed May [facility] null, [place] [facility] 10/17/2023 10:56:35 Td (adult), 2 Lf tetanus toxoid, preservative free, adsorbed 6 completed [facility], [place] [facility] 10/17/2023 10:56:35 Influenza, split virus, quadrivalent, PF 0 completed Mayvazquez Vazquez null, [place] - [facility] 10/17/2023 10:56:35 Influenza, split virus, quadrivalent, PF 3 completed [facility] [facility] 10/17/2023 10:56:35 Influenza, split virus, quadrivalent, PF 1 completed Mayvazquez Vazquez null, [place] - [facility] 10/17/2023 10:56:35 Influenza, split virus, quadrivalent, PF 2 completed May baker, [place] [facility] 10/17/2023 10:56:35 Pneumococcal conjugate PCV20, polysaccharide [id number] conjugate, adjuvant, PF 5 completed Not Available [facility] 11/24/2024 09:51:39 COVID-19, mRNA, LNP-S, PF, 50 mcg/0.5 mL 5 completed Not Available [facility] 11/24/2024 09:51:39 Influenza, MDCK, trivalent, PF 5 completed Not Available [facility] 11/24/2024 09:51:39 Past Encounters Encounter ID Performer Location Encounter Start Date Encounter Closed Date Diagnosis/Indication Diagnosis SNOMED-CT Code Diagnosis ICD10 Code Diagnosis Note [id number] SONALI DUENAS PA-C Main Office [address] [facility] [place] [address] 07/03/2023 14:42:35 07/03/2023 15:32:24 Binge eating disorder 796535406 F50.81 History of binge eating disorder. Not deemed a candidate for weight loss surgery. Additional history of anxiety and depression x 13 years. Follows with a therapist, although she is hoping to transition to a therapist who specialize s in eating disorders; has reached out to 3 providers through [employer] Screening for cardiovascular system disease 364072924 Z13.6 Diabetes m ellitus screening 178021395 Z13.1 History of myocardial infarction 495031072 I25.2 History of NSTEMI on 12/23/20. Followed/m anaged by Dr. Mcmanus ([facility]). Gastroesop hageal reflux disease 642637913 K21.9 Stable. Previously managed on PPI therapy. Now maintained on Acid-Eeze. Insomnia 674388964 F51.0 9 Stable. Maintains on melatonin 20mg, gabapentin , and hydroxyzin e. Mixed anxi ety and depressive disorder 057362393 F41.8 See above Patient ne w to provider [id number] 79120 Z76.89 Here to establish care. Up to date on recommende d health screenings . Will obtain labs prior to next visit. [id number] SONALI DUENAS PA-C Main Office [address] [facility] [place] [place] [address] 08/14/2023 13:36:52 08/14/2023 14:20:49 Chronic kidney disease stage 3A 155540502 N18.31 Creatinine 1.3, stable with consistent results when compared to CIS. Patient reports elevated creatinine since mid 20s, previously seen by a nephrologi st. Has never obtained imaging of such. Recommende d renal ultrasound to rule out anatomic/h ereditary abnormalit ies, given abnormal creatinine since young adulthood. Patient declines at this time, but may consider in the future. Myocardial infarction 22 890646 I21.9 History of myocardial infarction secondary to coronary artery dissection . Given history of NSTEMI, statin therapy recommende d. LDL is above goal (<100). Patient declines starting medication at this time, prefers to manage initially with diet. Will plan to recheck in 6 months. May also consider coronary CT, which patient declines at this time. Chronic back pain 955965 002 G89.29 Persistent low back pain, worsened by sedentary lifestyle. Request refills of medication s as below. Discussed increasing physical activity, such as utilizing walk with [facility] program. Binge eating disorder 43 9432959 F50.81 History of binge eating disorder. Not deemed a candidate for weight loss surgery. Additional history of anxiety and depression x 13 years. Has an upcoming intake with a therapist/ registered dietitian who specialize s in this area. [id number] SONALI DUENAS PA-C [facility] [address] [facility] [place] [address] 10/17/2023 10:55:02 10/17/2023 11:56:27 Active or passive immunization 800330907 Z23 Up to date on recommende d imms (including Shingles and Tdap). Adult heal th examination 192450460 Z00.00 Up to date on recommende d [facility].Blood pressure well-contr olled at 122/80. Myocardial infarction 22 555096 I21.9 History of NSTEMI secondary to coronary artery dissection . Followed/m anaged by [facility] (reviewed note from 07/03/2023). Continues on ASA and metoprolol . Given history of NSTEMI, statin therapy recommende d. LDL is above goal (<100). Patient declines starting medication at this time, prefers to manage initially with diet. Repeat lipid panel ordered for 12/2023. May also consider coronary CT, which patient declines at this time. Encouraged to exercise regularly. Gastroesop hageal reflux disease 700467247 K21.9 Previously managed on PPI therapy, now maintained on Acid-Eeze. Reports worsening GERD sx. Agreeable to PPI therapy at this time. Reviewed endoscopy results from 09/2018. Obesity 670753066 E66.9 8 Minutes spent on intensive obesity counseling , including review of measured BMI, and nutritiona l assessment with behavioral therapy to promote weight loss.Five A s ApproachAs sess: BMI 48.3.Advic e: Recommende d attention to [...] if needed by the patient. Depressive disorder 3029 9007 F32.A Resources offered for behavioral health counseling , although declined. Currently under increased stress at home. May reach out if she would like counseling referrals. Chronic ki dney disease stage 3A 125358652 N18.31 Creatinine 1.3, stable with consistent results when compared to CIS. Patient reports elevated creatinine since mid 20s, previously seen by a nephrologi st. Has never obtained imaging of such. Recommende d renal ultrasound to rule out anatomic/h ereditary abnormalit ies, given abnormal creatinine since young adulthood. Patient declines at this time, but may consider in the future. Chronic back pain 848312 002 G89.29 Persistent low back pain, worsened by sedentary lifestyle. Maintained on gabapentin and cyclobenza shakila as needed. Discussed increasing physical activity, such as utilizing walk with [facility] program. Binge eating disorder 43 9010692 F50.81 History of binge eating disorder. Not deemed a candidate for weight loss surgery, despite 2 prior attempts. Additional history of anxiety and depression x 13 years. Recommende d to engaged with a therapist/ registered nutritioni st who specialize s in this area. Resources offered, although declined at this time. Insomnia 509832033 F51.0 9 Stable. Maintains on melatonin 20mg, gabapentin , and hydroxyzin e. [id number] SONALI DUENAS PA-C Main Office [address] [facility] [place] [place] [address] 02/24/2024 10:20:43 02/24/2024 11:01:34 Myocardial infarction 08702339 I21.9 History of NSTEMI secondary to coronary artery dissection . Followed/m anaged by [facility] (reviewed note from 07/03/2023). Continues [...] to exercise regularly. Gastroesop hageal reflux disease 736078308 K21.9 Maintained on omeprazole 40 mg po daily Binge eating disorder 43 4498196 F50.81 History of binge eating disorder. Not deemed a candidate for weight loss surgery, despite 2 prior attempts. Additional history of anxiety and depression x 13 years. Recommende d to engaged with a therapist/ registered nutritioni st who specialize s in this area. Resources offered, although declined at previous visit. Depressive disorder 9691 9007 F32.A Medication provider: Jennifer Christina. Resources offered for behavioral health counseling , although declined. Currently under increased stress at home. May reach out if she would like counseling referrals. Chronic ki dney disease stage 3A 911115175 N18.31 Creatinine 1.3, stable with consistent results [...] testing at this time. Chronic back pain 752062 002 G89.29 Persistent , intermitte nt low [...] future flare-ups. which patient agrees with. Insomnia 835997824 F51.0 9 Stable. Maintains on melatonin 20mg, gabapentin , and hydroxyzin e. Constipation 39148563 K5 9.00 Reports recent constipati on after [...] provided in detail. Normal grief reaction 27 9194994 F43.20 Recently lost daughter within last 1-2 months. Feels well supported by family. Denies any additional resources at this time, but aware that she may reach out to request at any time. [id number] JENNIFER SAWYER Main Office [address] [facility] [place] [address] 05/10/2024 15:35:36 05/10/2024 16:12:19 Dysuria 65921018 R30.0 Awaiting swab, urine dip with RBC's [...] but no other topicals. Will refer to [facility] for further evaluation Microscopic hematuria 19 6566110 R31.29 will refer to urogyn since patient has microscopi c hematuria 3+ [id number] SONALI DUENAS PA-C Main Office [address] [facility] [place] [place] [address] 07/09/2024 15:36:42 07/09/2024 16:28:02 Chronic back pain 581289036 G89.29 Persistent , intermitte nt low back [...] which patient agrees with. Myocardial infarction 22 141905 I21.9 History of NSTEMI secondary to coronary artery dissection . Followed/m anaged by [facility] (reviewed note from 07/03/2023). Continues [...] regularly. Chronic ki dney disease stage 3A 452834809 N18.31 Creatinine 1.24, stable with consistent results [...] continue to monitor. Binge eating disorder 43 8062142 F50.819 External hemorrhoids 239 79307 K64.4 Experienci ng daily discomfort secondary to external hemorrhoid . Declines pyhysical examinatio n. Agreeable to colorectal referral for future management . Obesity 007378162 E66.9 8 Minutes spent on intensive obesity counseling , including review of measured BMI, and nutritiona l assessment with behavioral therapy to promote weight loss.Five A s ApproachAs sess: BMI 49.2.Advic e: Recommende d attention to [...] at annual exam Diabetes m ellitus screening 873114782 Z13.1 Screening for cardiovascular system disease 753759590 Z13.6 Thyroid di sorder screening 405603886 Z13.29 [id number] Andrew Breanna Buchanan DO Main Office [address] [place] [address],[address] [place] [address] 11/24/2024 09:50:39 11/24/2024 11:24:52 Acute cough 7896134848 90498135 R05.1 Viral uppe r respiratory tract infection 041877058 J06.9 Health Concerns Section Related Observation LastModified by Organization Detai ls LastModified Time None Recorded Concern Status LastModified by Organization Details LastModified Time None Recorded Advance Directives Directive None Recorded Payers Insurance Date Sequence Insurance Name Policy Number Policy Ordoñez Covered Member ID Ordoñez Member ID Guarantor Name 07/09/2024 1 [place] [employer] [place] [id number] [place] 07/09/2024 1 [place] [id number] [place] [id number] [place] 12/02/2024 1 [place] (MEDICARE [place]PLACEMENT PPO) [id number] [place] [id number] [place] Notes Date Note Type Note Provider Name [...] tetanus and shingles immunizations SONALI DUENAS PA-C [address] [address], [place], [address], [facility] 10/29/2023 13:19:31 02/24/2024 text/html [...] numbness or tingling. SONALI DUENAS PA-C [address] [facility] [address], [place], [address], [facility] 02/26/2024 09:19:06 05/10/2024 text/html perineal area an d rectum feel warm X one yeardenies vaginal dischargePAP 2022 at [facility] gynecology [facility], record unavailable and unable to find her [facility] systemCol[facility]oscopy within [facility] years, no polyps per patientTried tea tree ointmentDesitin ointmentlubricant stick on buttocks seemed to help ramos butter combination to perineal areaHas seen urology long time ago for microscopic hematuria, she is unsure of outcome JENNIFER SAWYER [address] [facility] [address], [place], [address], [facility] 05/10/2024 16:17:24 07/09/2024 text/html Roslyn [...] blocked but has not been sick recently. JENNIFER PARKER-Neha [address] [facility] [address], [place], [address], [facility] 07/12/2024 06:06:10 11/24/2024 text/html Roslyn Todd - Cold started on November 19, 2024, [...] in managing symptoms. Andrew Buchanan, DO [address] [facility] [address], [place], [address], [facility] - [facility] 11/24/2024 13:55:52 OBGyn Episode No OBEpisode recorded.
--- OUTSIDE RECORDS SUMMARY | 2025-01-17 12:03 | XMS_ITS | Clinical Summary ---
Author Organization [facility] Address [address] [place] [address] Phone Care Team Providers Care Family Dentist Name Role Phone Felicita Diallo Primary Care Provider [phone] Allergies No known active allergies Medications No known medications Active Problems No known active problems Social History Tobacco Use Types Packs/Day Years Used Date Smoking Tobacco: Never Assessed Education Answer Date Recorded Are you interested in more education? Not on varsha e 10/25/2022 Are you concerned about learning? Not on file 10/25/2022 No 10/25/2022 No 10/25/2022 Digital Access Answer Date Recorded No 11/23/2022 No 11/23/2022 Reliable internet access at home? Not on file 11/23/2022 Device with a working camera? Not on file Comments Unknown Sex and Gender Information Value Date Recorded Sex Assigned at Female 01/18/2022 3:20 PM EDT Legal Sex Female 9:46 PM EDT Gender Identity Female 01/18/2022 3:20 PM EDT Sexual Orientation Straight 01/18/2022 3: 20 PM EDT Last Filed Vital Signs Vital Sign Reading Time Taken Comments Blood Pressure - - Pulse - - Temperature - - Respiratory Rate - - Oxygen Saturation - - Inhaled Oxygen Concentration - - Weight 113.4 kg (250 lb) 03/19/2022 12:07 PM EDT Height 154.9 cm (5' 1 ) 03/19/2022 12:07 PM EDT Body Mass Index 47.24 03/19/2022 12:07 PM EDT Plan of Treatment Health Maintenance Due Date Last Done Comments LIPID PANEL 1961 DEPRESSION SCREENING 1973 SMOKING Hx and SMOKELESS TOBACCO SCREENING 1974 HEPATITIS C SCREENING 1979 HIV ONE-TIME SCREENING (18-6 5 YEARS) 1979 PAP SMEAR 1982 SCREENING FOR DIABETES 1996 MAMMOGRAM 2001 COLOGUARD 2006 COLONOSCOPY 2006 COLORECTAL CANCER SCREENING 2006 FIT TEST 2006 FOBT 2006 SIGMOIDOSCOPY 2006 VIRTUAL COLONOSCOPY 2006 PNEUMOCOCCAL VACCINES (50+ years) (1 of 1 - PCV) 2011 RSV VACCINE (1 - Risk 60-74 years 1-dose series) 2021 COVID-19 VACCINE (4 - 2023-2 5 season) 2024 06/03/2021, 08/19/2020, 07/21/2020 Adult Td,Tdap Booster 03/25/2026 03/25/2016 ZOSTER VACCINES Completed 08/05/2021, 03/21/2020 HEPATITIS A VACCINES Aged Out No long er eligible based on patient's age to complete this topic HIB VACCINES Aged Out No longer eligi ble based on patient's age to complete this topic MENINGOCOCCAL VACCINES (ACWY) Aged Out No longer eligible based on patient's age to complete this topic MENINGOCOCCAL VACCINES (B) Aged Out N o longer eligible based on patient's age to complete this topic Medical Devices Not on file Insurance MEDICARE PART A & B [employer] SUPPLEMENT MEDICARE PART A & B [employer] MED[employer] SUPPLEMENT MEDICARE PART A & B [employer] SUPPLEMENT MEDICARE PART A & B [employer] SUPPLEMENT MEDICARE PART A & B [employer] SUPPLEMENT MEDICARE PART A & B [employer] MEDEX SUPPLEMENT MEDICARE PART A & B [place] [employer] MEDEX SUPPLEMENT MEDICARE PART A & B [employer] MEDEX SUPPLEMENT MEDICARE PART A & B [employer] MED[employer] SUPPLEMENT Care Teams Family Dentist Relationship Specialty Start Date End Date Felicita Diallo DO [address] [place] [id number] PCP - General Family Medicine 01/18/22 Additional Source Comments The information contained in this document represents components of the legal health record. It is not the complete legal health record.[facility]
== END 2025-01-17 10:56 | disposition home or self-care (01) ==
LOC: HO.HOP 10:55
PROVIDERS: PCP Family Medicine; Visit Provider Clinical Nurse Specialist Psychiatric/Mental Health
DX: F43.10 Post-traumatic stress disorder, unspecified (principal); F33.1 Major depressive disorder, recurrent, moderate; F43.20 Adjustment disorder, unspecified; Z63.4 Disappearance and death of family member; F50.81 Binge eating disorder
CPT/HCPCS: 99214

== ENCOUNTER 2025-02-21 10:53 | Outpatient (AMB) | payer MEDICARE, SELFPAY ==
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
--- OUTSIDE RECORDS SUMMARY | 2025-02-21 12:09 | XMS_ITS | Clinical Summary ---
Author Organization [employer] Address [address] [facility] [address] [place] [address] Care Team Providers Care Numerical Control Lathe Operator Name Role Phone Megha Arroyo Unavailable Jairo Patel DDS Unavailable Allergies Active Allergy Reactions Criticality Noted Date [...] 07/09/2024 Stage 3a chronic kidney disease 07/09/2024 Social History Tobacco Use Types Packs/Day Years [...] Team (Late st Contact Info) Description 05/03/2025 10:15 AM EST Office Visit [facility] [address] [place] [address] [phone] Catia Jefferson [address] [place] [address] Health Maintenance Due Date Last Done Comments [...] Screening 04/18/2024 04/18/2023 Influenza Vaccine (#1) 2025 5, 04/16/2023, 06/18/2022, Additional history exists Dental Prophylaxis 05/01/2025 10/28/2024, 1 , 10/21/2023, Additional history exists Alcohol/Substance Use Screening 10/28/2025 10/28/2024 Dental X-Ray: Bitewings 10/29/2025 10/29/19 25, 03/11/2023, 06/17/2018 Dental X-Ray: Full Mouth 03/12/2026 03/11/2023, 05/30 DTaP/Tdap/Td Vaccines (4 - Td or Tdap) 03/25/2026 03/25/2016, 03/25/2016, 06/08/2008, Additional history exists Zoster Vaccines Completed 04/28/2023, /11/2021, 03/21/2020 COVID-19 Vaccine Completed 07/02/2024, , 07/12/2022, [...] RADIOGRAPHIC IMAGES Routine 10/28/2024 9:45 AM EDT INTRAORAL - COMPLETE SERIES OF RADIOGRAPHIC IMAGES Routine 03/11/2023 4:30 PM EDT PERIODIC ORAL EVALUATION - ESTABLISHED PATIENT Routine 03/11/2023 4:30 PM EDT from Last 3 Months or Most Recently Relevant to Health Maintenance Insurance [facility] MEDEX CARE [place] Care Teams Numerical Control Lathe Operator Relationship Specialty Start Date End Date Megha Arroyo [address] [place] [address] Dental Computer Discovery Teacher 10/21/23 Jairo Patel DDS [address] [place] [address] Dentist 10/21/23
--- OUTSIDE RECORDS SUMMARY | 2025-02-21 12:09 | XMS_ITS | Clinical Summary ---
Author Organization [facility] Address [address] [place] [phone] Phone Care Team Providers Care Product Marketing Analyst Name Role Phone Felicita Diallo Primary Care Provider [phone] Allergies No known active allergies Medications No [...] file Insurance MEDICARE PART A & B [employer] CROSS MEDEX SUPPLEMENT MEDICARE PART A & B [employer] MEDEX SUPPLEMENT MEDICARE PART A & B [employer] CROSS MEDEX SUPPLEMENT MEDICARE PART A & B [employer] MEDEX SUPPLEMENT MEDICARE PART A & B [employer] MEDEX SUPPLEMENT MEDICARE PART A & B [employer] MEDEX SUPPLEMENT MEDICARE PART A & B [employer] MEDEX SUPPLEMENT MEDICARE PART A & B [employer] MEDEX SUPPLEMENT MEDICARE PART A & B [employer] CROSS MEDEX SUPPLEMENT Care Teams Product Marketing Analyst Relationship Specialty Start Date End Date Felicita Diallo DO [address] [place] [id number] PCP - General Family Medicine 01/18/22 Additional Source Comments The information contained in this document represents components of the legal health record. It is not the complete legal health record.[facility]
== END 2025-02-21 10:54 | disposition home or self-care (01) ==
LOC: HO.HOP 10:53
PROVIDERS: PCP Family Medicine; Visit Provider Clinical Nurse Specialist Psychiatric/Mental Health
DX: F43.10 Post-traumatic stress disorder, unspecified (principal); F33.1 Major depressive disorder, recurrent, moderate; F43.20 Adjustment disorder, unspecified; Z63.4 Disappearance and death of family member; F50.81 Binge eating disorder
CPT/HCPCS: 99213

== ENCOUNTER 2025-03-17 10:33 | Outpatient (AMB) | payer MEDICARE, SELFPAY ==
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
--- OUTSIDE RECORDS SUMMARY | 2025-03-17 12:36 | XMS_ITS | Clinical Summary ---
Author Organization [facility] Address [address] [place] [phone] Phone Care Team Providers Care Piano Regulator Name Role Phone Felicita Diallo Primary Care Provider [phone] Allergies No known active allergies Medications No [...] - Risk 60-74 years 1-dose series) 2021 INFLUENZA VACCINE (#1) 2025 , 03/21/2020 COVID-19 VACCINE (4 - 2024-2 6 season) 2025 06/03/2021, 08/19/2020, 07/21/2020 Adult Td,Tdap Booster 03/25/2026 [...] file Insurance MEDICARE PART A & B [employer] CROSS MEDEX SUPPLEMENT MEDICARE PART A & B [employer] MEDEX SUPPLEMENT MEDICARE PART A & B [employer] MEDEX SUPPLEMENT MEDICARE PART A & B [employer] MED[employer] SUPPLE[employer] MEDICARE PART A & B [employer] MEDEX SUPPLEMENT MEDICARE PART A & B [employer] MEDEX SUPPLEMENT MEDICARE PART A & B [facility] MEDEX SUPPLEMENT MEDICARE PART A & B [employer] CROSS MEDEX SUPPLEMENT MEDICARE PART A & B [employer] CROSS MEDEX SUPPLEMENT Care Teams Piano Regulator Relationship Specialty Start Date End Date Felicita DialloDO [address] [place] [phone] PCP - General Family Medicine 01/18/22 Additional Source Comments The information contained in this document represents components of the legal health record. It is not the complete legal health record.[facility]
--- OUTSIDE RECORDS SUMMARY | 2025-03-17 12:36 | XMS_ITS | Clinical Summary ---
Author Organization [employer] Address [address] [facility] 7t [place] [address] Care Team Providers Care Language Tutor Name Role Phone Megha Arroyo Unavailable Jairo Patel DDS Unavailable [phone] Allergies Active Allergy Reactions Criticality Noted Date [...] Description 05/03/2025 10:15 AM EST Office Visit [facility] [address] [place] [address] [phone] Catia Jefferson [address] [place] [address] Health Maintenance Due Date Last Done Comments [...] Most Recently Relevant to Health Maintenance Insurance [facility] MEDEX CARE DENTAL - [place] Care Teams Language Tutor Relationship Specialty Start Date End Date Megha Arroyo [address] [place] [address] Dental Production Tech 10/21/23 Jairo Patel DDS [address] [place] [address] Dentist 10/21/23
--- OUTSIDE RECORDS SUMMARY | 2025-03-17 12:36 | XMS_ITS | Encounter Summary ---
Author Organization [employer] Address [address] [place] [address] [place] [address] Care Team Providers Care Link Trainer Operator Name Role Phone ArroyoAbrahamMegha Unavailable JorgeJairo DDS Unavailable [phone] Encounter Details Date Type Department Care Team (Late Contact Info) Description 04/16/2023 Orders Only [facility] [address] [place] [phone] Ryan Hamlin DDS [address] [place] [address] Social History Tobacco Use Types Packs/Day Years [...] Care Team (Late Contact Info) Description 05/03/2025 10:15 AM EST Office Visit [facility] [address] [place] [phone] Catia Jefferson [address] [place] [phone] documented as of this encounter Visit Diagnoses Not on filedocumented in this encounter Care Teams Link Trainer Operator Relationship Specialty Start Date End Date Megha Arroyo [address] [place], [place] [phone] Dental Armature Repairer 10/21/23 Jairo Patel DDS [address] [place] [address] [place] [address] Dentist 10/21/23 documented as of this encounter
== END 2025-03-17 10:34 | disposition home or self-care (01) ==
LOC: HO.HOP 10:33
PROVIDERS: PCP Family Medicine; Visit Provider Clinical Nurse Specialist Psychiatric/Mental Health
DX: F33.1 Major depressive disorder, recurrent, moderate (principal); F43.20 Adjustment disorder, unspecified; Z63.4 Disappearance and death of family member; F50.811 Binge eating disorder, moderate; F43.10 Post-traumatic stress disorder, unspecified
CPT/HCPCS: 99213

== ENCOUNTER 2025-04-14 14:39 | Outpatient (AMB) | payer MEDICARE, SELFPAY ==
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
== END 2025-04-14 14:40 | disposition home or self-care (01) ==
LOC: HO.HOP 14:39
PROVIDERS: PCP Family Medicine; Visit Provider Clinical Nurse Specialist Psychiatric/Mental Health
DX: F33.1 Major depressive disorder, recurrent, moderate (principal); F43.20 Adjustment disorder, unspecified; Z63.4 Disappearance and death of family member; F50.819 Binge eating disorder, unspecified; F43.10 Post-traumatic stress disorder, unspecified
CPT/HCPCS: 99213